=== PATIENT | male | born 1935 | race Caucasian/White ===

== ENCOUNTER 2019-09-14 16:31 | Inpatient (IN) | payer MEDICARE, OTHER ==
[~2019-09-14] VITALS: Ht 170.2 cm; Wt 75.0 kg
[~2019-09-14 16:31] MED LIST: ALLO300T2 PO; AMLO10TA2 PO; AMLO10TA5 PO; ASPI81TA85 PO; ATEN25TA PO; BISAC5TA PO; CODCAP5 PO; COLCPOW6 PO; FINA5TAB2 PO; FISH7.5C PO; FOLI1TAB86 PO; LEVO500T PO; LISI5TAB PO; LOPR100T2 PO; MULT1TAB8 PO; MULTCAP12 PO; ONDA-1 PO; PRED-351 PO; RISP1TAB21 PO; TERA10CA3 PO; TERAZOSIN OD; TYLE325T5 PO; VITA100T2 PO; VITA100T8 PO; ZYLO300T6 PO
[2019-09-14] MEDS ORDERED: ASPI81TA33 PO (16:47)
[2019-09-14] MEDS ORDERED: TERA10CA3 PO (16:47)
--- NOTE | 2019-09-14 17:38 | REPVR ---
PROCEDURE INFORMATION: Exam: CT Head Without Contrast Exam date and time: 09/14/2019 5:24 PM Age: 84 years old Clinical indication: Altered mental status/memory loss; Additional info: AMS TECHNIQUE: Imaging protocol: Computed tomography of the head without contrast. Radiation optimization: All CT scans at this facility use at least one of these dose optimization techniques: automated exposure control; mA and/or kV adjustment per patient size (includes targeted exams where dose is matched to clinical indication); or iterative reconstruction. COMPARISON: No relevant prior studies available. FINDINGS: Brain: There is no acute cortical infarction, intracranial hemorrhage or mass. Ventricles: The ventricles appear enlarged, but not out of proportion to the degree of parenchymal volume loss. Bones/joints: Unremarkable. No acute fracture. Sinuses: Visualized sinuses are unremarkable. No fluid levels. Mastoid air cells: Visualized mastoid air cells are well aerated. Soft tissues: Unremarkable. Vasculature: Atherosclerosis. IMPRESSION: No acute intracranial findings. Electronically signed by: Shannan Dorman On 09/14/2019 17:38:00 PM
[2019-09-14 18:10] LABS: BASO % 0.2 % (0.0-1.0); EOS # 0.1 10^3/uL (0.0-0.5); EOS % 2.1 % (0.0-3.0); HEMATOCRIT 24.9 % (42.0-52.0); HEMOGLOBIN 8.1 g/dl (13.5-17.5); LYMPH % 18.1 % (24.0-44.0); MEAN CORPUSCULAR HGB CONC 32.5 g/dl (32.0-36.5); MEAN CORPUSCULAR VOLUME 104.6 fl (80.0-96.0); MONO # 0.5 10^3/uL (0.0-0.8); MONO % 9.4 % (0.0-5.0); NEUTROPHILS # 3.7 10^3/uL (1.5-8.5); RED BLOOD COUNT 2.38 10^6/uL (4.30-6.10); WHITE BLOOD COUNT 5.3 10^3/uL (4.0-10.0)
[2019-09-14 18:27] LABS: BLOOD UREA NITROGEN 44 MG/DL (7-18); CALCIUM LEVEL 8.5 MG/DL (8.8-10.2); CARBON DIOXIDE LEVEL 28 MEQ/L (21-32); CHLORIDE LEVEL 110 MEQ/L (98-107); CK-MB VALUE MASS 1.5 NG/ML (<3.6); CPK CREATINE PHOSPHOKINASE 54 U/L (39-308); CREATININE FOR GFR 1.23 MG/DL (0.70-1.30); GLOMERULAR FILTRATION RATE 59.8 (>35); GLUCOSE, FASTING 92 MG/DL (70-100); MB/CK RELATIVE INDEX 2.78 (< OR =4); POTASSIUM SERUM 4.5 MEQ/L (3.5-5.1); SODIUM LEVEL 141 MEQ/L (136-145); TROPONIN I < 0.02 NG/ML (< 0.10)
[2019-09-14 18:47] LABS: PLATELET COUNT, AUTOMATED 90 10^3/uL (150-450)
[2019-09-14] MEDS ORDERED: PATIENT COMMENTS (19:26)
--- NOTE | 2019-09-14 19:29 | HPEPDOC ---
[facility] Medical History & Physical Date of Admission Sep 14, 2019 Date of Service: Sep 14, 2019 Attending Physician: BARTOLO SHANKS MD History and Physical TIME OF SERVICE: 750 PM CHIEF COMPLAINT: Leg pain HISTORY OF PRESENT ILLNESS: The patient is a poor historian the majority of history is obtained from Dr. Contreras and chart review. This 84-year-old male was unable to articulate why he came to the hospital. According to ER notes, his neighbor called EMS because the patient was complaining of right leg pain and difficulties walking; patient corroborated that finding. When EMS found him, he appeared confused,and his blood glucose was 133. ROS: Unobtainable because of the patient's mental status PAST MEDICAL/SURGICAL HISTORY: Gout with tophi affecting multiple joints Unspecified type of dementia Chronic CKD 3 Chronic anemia Paroxysmal atrial fibrillation. Aortic valve sclerosis. Moderate mitral valve calcification. Chronic diastolic CHF / Chronic HTN Resection of unspecified type of skin cancer Hx of BPH with urinary retention status post transurethral electro-vaporization of the prostate SOCIAL HISTORY: - Tobacco + lives alone +18 sisters and 2 or 3 brothers + was in the [employer]s FAMILY HISTORY: 1 of his brothers suddenly at a young age ALLERGIES: Please see below. HOME MEDICATIONS: Please see below. PHYSICAL EXAMINATION: Vital Signs Date Time Temp Pulse Resp B/P (MAP) Pulse Ox O2 Delivery O2 Flow Rate FiO2 09/14/19 16:46 97.3 51 19 180/82 (114) 98 Room Air GEN: Slim build / well developed/ NAD INTEGUMENT: not flushed/ not jaundice HEENT: NCAT CVS: RRR/NMRG/ radial pulses intact / no lower extremity edema LUNGS: lungs are clear to auscultation bilaterally on room air ABDOMEN: Contour (flat) MSK/EXTREMITIES: range of motion intact in all 4 extremities / requires assistance to stand and walk / tophi affecting multiple joints NEURO: CN 2-12 are grossly intact / speech is not dysarthric PSYCH: alert and oriented to person but not place or time/ able to understand and follow simple commands LABORATORY DATA: Immature Granulocyte % (Auto) 0.2, Neutrophils (%) (Auto) 70.0H, Lymphocytes (%) (Auto) 18.1L, Monocytes (%) (Auto) 9.4H, Eosinophils (%) (Auto) 2.1, Basophils (%) (Auto) 0.2, Neutrophils # (Auto) 3.7, Lymphocytes # (Auto) 1.0L, Monocytes # (Auto) 0.5, Eosinophils # (Auto) 0.1, Basophils # (Auto) 0.0, Nucleated Red Blood Cells % (auto) 0.0, Immature Platelet Fraction 9.1, Anion Gap 3L, Glomerular Filtration Rate 59.8, Calcium Level 8.5L, Total Creatine Kinase 54, Creatine Kinase MB 1.5, Creatine Kinase MB Relative Index 2.78, Troponin I < 0.02 09/14/19 18:09: Urine Color YELLOW, Urine Appearance CLEAR, Urine pH 5.0, Urine Specific [place] 1.012, Urine Protein NEGATIVE, Urine Glucose (UA) NEGATIVE, Urine Ketones NEG ATIVE, Urine Blood NEGATIVE, Urine Nitrite NEGATIVE, Urine Bilirubin NEGATIVE, Urine Urobilinogen 0.2, Urine Leukocyte Esterase NEGATIVE, Urine WBC (Auto) 1, Urine RBC (Auto) 0, Urine Hyaline Casts (Auto) 0, Urine Bacteria (Auto) NEGATIVE, Urine Squamous Epithelial Cells 0, Urine Mucus (Auto) SMALL, Urine Sperm (Auto) IMAGING: CT head "IMPRESSION: No acute intracranial findings." Chest x-ray final read pending. X-ray lumbar spine final read pending. X-ray hip and pelvis final read pending ASSESSMENT: Mr. Hansen is a 84-year-old with a history of gout, unspecified type of dementia, CKD 3, chronic anemia, paroxysmal atrial fibrillation, diastolic CHF, and HTN who was brought to the hospital for evaluation of right lower extremity pain and will be admitted for evaluation of bradycardia. PLAN: 1. Bradycardia It's difficult to determine if the patient has been experiencing symptoms b ecause he is not able to provide a good history Differential diagnosis includes: DE / sick sinus syndrome due to age-related myocardial fibrosis / idiopathic / vasovagal response / hypothyrodism /cardiac infiltrative dx (amylodosis, sarcodosis...ect) Min HR 47 EKG - NSR K, calcium, glucose & trop unrevealing Plan: admit to [facility] / telemetry / atropine 0.5 mg IV PRN for sustained HR <30 with symptoms/ f/u TSH, serial trops 2. Bicytopenia He has acute thrombocytopenia with a drop of is plt # from 232 to 90; not sure if this is pseudothrombocytopenia due to clumping of plts He also has chronic anemia with a Hg of 8.1 which is his baseline. Plan: f/u repeat CBC and B12 / monitor for bleeding 3. Right Leg Pain Plan: f/u xray reports / acetaminophen / lidocane patch 4. Possible Alzhimer's Dementia CT head unrevealing Plan: f/u TSH, B12, B1 / PFS consult for possible placement / the day time team can contact his next of kin to get additional info / 1:1 sitter / the day time team may consider Pallative care consult to adress the goals of care and his code status with his next of kin 5. Debility w Sarcopenia. - PT consult for early mobilization 6. CKD 3 - f/u BMP 7. BPH - terazosin 8. Gout w Tophi - f/u uric acid 9. Paroxysmal atrial fibrillation - for unclear reasons not on AC/ day time team can talk with his next of kin to obtain additiona details DVT Px w SCDs bc of bicytopenia DISPO: will need at [facility] 2 midnight's stay / PFS consult has been palced for placement in NURSING HOME or SNF Home Medications Scheduled Aspirin (Aspirin EC) 81 Mg Tablet.dr, 81 MG PO DAILY Terazosin Hcl (Terazosin HCl) 10 Mg Capsule, 10 MG PO QHS Miscellaneous Medications [Patient Comments] INFORMATION ON MEDICATIONS PROVIDED BY FAMILY MEMBER Allergies Coded Allergies: No Known Allergies (Unverified , 08/01/13) A-FIB/CHADSVASC A-FIB History Current/History of A-Fib/PAF?: Yes Current PO Anticoag Therapy: No Treatment Other reason anticoagulant not: anemia with acute thrombocytopenia BARTOLO SHANKS MD Sep 14, 2019 19:29
[2019-09-14] MEDS ORDERED: ACETAMINOPHEN TAB 650MG DOSE (2X325MG) PO PRN (19:30)
[2019-09-14] MEDS ORDERED: MAALOX 30 ML SUSP *UDC PO PRN (19:30)
--- NOTE | 2019-09-14 19:30 | ECGEPIP ---
[facility] - ED Test Date: 2019-09-14 Pat Name: CHRISTI BROOKS Department: Room: - Gender: Male Ct Technician: : 1935 Requested By: Reinier Perez Order Number: [id number] Reading MD: Susan Hogan Measurements Intervals Eleanor Rate: 51 P: 37 AR: 184 QRS: -7 QRSD: 76 T: 51 QT: 414 QTc: 384 Interpretive Statements SINUS BRADYCARDIA NO PRIOR Electronically Signed on 09-14-2019 19:30:22 EDT by Susan Hogan
[2019-09-14 19:55] LABS: MAGNESIUM LEVEL 2.1 MG/DL (1.8-2.4)
[2019-09-14] MEDS: RAMELTEON 8 MG TAB (ROZEREM) PO SCH (20:27)
[2019-09-14] MEDS: ACETAMINOPHEN TAB 650MG DOSE (2X325MG) PO SCH (20:28)
[2019-09-14] MEDS ORDERED: ATROPINE SULF 1MG/10ML SYRINGE (J0461) IV PRN (20:45)
[2019-09-14 21:01] LABS: URIC ACID 6.7 MG/DL (3.5-7.2)
[2019-09-14] MEDS: TERAZOSIN 5 MG CAP PO SCH (21:59)
[2019-09-14 22:00] VITALS: BP 155/73
[2019-09-14] MEDS: LIDOCAINE 5% (LIDODERM) PATCH TD SCH (22:00)
[2019-09-15] VITALS (10 sets, daily range): BP systolic 113–148; BP diastolic 54–89
[2019-09-15] MEDS: ACETAMINOPHEN TAB 650MG DOSE (2X325MG) PO SCH ×3 (05:40→22:07)
[2019-09-15 06:08] LABS: MEAN CORPUSCULAR HEMOGLOBIN 34.3 pg (27.0-33.0); MEAN CORPUSCULAR HGB CONC 33.3 g/dl (32.0-36.5); RED BLOOD COUNT 2.01 10^6/uL (4.30-6.10)
[2019-09-15 06:16] LABS: HEMATOCRIT 20.7 % (42.0-52.0); PLATELET COUNT, AUTOMATED 76 10^3/uL (150-450)
[2019-09-15 06:17] LABS: HEMOGLOBIN 6.9 g/dl (13.5-17.5)
[2019-09-15 06:27] LABS: BLOOD UREA NITROGEN 37 MG/DL (7-18); CALCIUM LEVEL 7.8 MG/DL (8.8-10.2); CARBON DIOXIDE LEVEL 26 MEQ/L (21-32); CHLORIDE LEVEL 111 MEQ/L (98-107); CREATININE FOR GFR 1.15 MG/DL (0.70-1.30); GLOMERULAR FILTRATION RATE > 60.0 (>35); GLUCOSE, FASTING 86 MG/DL (70-100); MAGNESIUM LEVEL 2.1 MG/DL (1.8-2.4); POTASSIUM SERUM 3.9 MEQ/L (3.5-5.1); SODIUM LEVEL 143 MEQ/L (136-145)
--- NOTE | 2019-09-15 06:49 | IPNPDOC ---
Text Note Date of Service The patient was seen on 09/15/19. NOTE #Pancytopenia possibly 2/2 Myelofibrosis, MDS or aplastic anemia -he has had an acute drop in his Hg to 6, his WBC # and plts are trending down -we will type and screen/cross match, order 2 unit of PRBCs, dc ASA, f/u iron studies, B12 is still pending VS,Fishbone, I+O VS, Fishbone, I+O Laboratory Tests 09/14/19 17:51 09/15/19 05:30 Vital Signs Date Time Temp Pulse Resp B/P (MAP) Pulse Ox O2 Delivery O2 Flow Rate FiO2 09/15/19 06:00 97.9 57 19 148/75 (99) 99 Room Air I&O- Last 24 Hours up to 6 AM 09/15/19 06:00 Intake Total 500 ml Balance 500 ml BARTOLO SHANKS MD Sep 15, 2019 06:49
[2019-09-15 07:18] LABS: ALT/SGPT 11 U/L (12-78); BILIRUBIN,DIRECT 0.3 MG/DL (0.0-0.2); BILIRUBIN,TOTAL 0.8 MG/DL (0.2-1.0); FERRITIN 495 NG/ML (26-388); IRON (FE) 51 UG/DL (65-175); PERCENT SATURATION 35.2 % (19.7-50.0); TOTAL IRON BINDING CAPACITY 145 UG/DL (250-450); TOTAL PROTEIN 5.7 GM/DL (6.4-8.2)
[2019-09-15 07:25] LABS: INR 1.41
[2019-09-15 07:27] LABS: PARTIAL THROMBOPLASTIN TIME 39.9 SECONDS (25.0-38.4)
[2019-09-15 07:29] LABS: D-DIMER QUANT 653.75 ng/ml (<500)
--- NOTE | 2019-09-15 08:33 | REP ---
CHEST: REASON FOR EXAM: Confusion. COMPARISON EXAM: 09/14/2019 FINDINGS: The technique utilized in obtaining the radiograph has magnified the cardiac silhouette and accentuated the interstitial markings. The superior mediastinal structures are midline. The cardiac silhouette is unremarkable in size, shape, and position. The diaphragmatic surfaces of the lungs are regular, and the costophrenic angles are clear. The pulmonary coughlin are clear. The imaged osseous structures are intact. IMPRESSION: There is no acute cardiopulmonary disease. No significant change. Electronically Signed by Hamzah Almonte DO 09/15/2019 08:39 A
--- NOTE | 2019-09-15 08:54 | REP ---
AP pelvis was obtained with two views of the right hip. Atraumatic pain. There is marked asymmetric hip joint space narrowing with subchondral sclerosis and subchondral lucencies. There is prominent marginal osteophytosis. There is no evidence of a fracture. More mild but significant degenerative changes are seen involving the left hip, although imaged in a limited fashion. Degenerative changes are seen involving the imaged spine. IMPRESSION: Advanced degenerative changes, as described above. Electronically Signed by Hamzah Almonte DO 09/15/2019 09:12 A
--- NOTE | 2019-09-15 08:57 | REP ---
REASON: Atraumatic pain. There is moderate disc space narrowing L3-4 through L5-S1 inclusive. More mild disc space narrowing is seen at all other disc space levels. There is heavy degenerative facet joint change seen bilaterally at all levels. There is anterior lipping from L3 to L5 inclusive, and anterior lipping seen involving the imaged lower thoracic spine. Vertebral body height and alignment is within normal limits. Partial syndesmophyte formation is seen bilaterally at all levels. IMPRESSION: Advanced chronic changes. Electronically Signed by Hamzah Almonte DO 09/15/2019 09:13 A
[2019-09-15] MEDS ORDERED: ASPIRIN 81 MG ENTERIC TAB PO SCH (09:00)
[2019-09-15] MEDS: **NOTE PATIENT COMMENT** MISC XX SCH (09:00)
--- NOTE | 2019-09-15 09:57 | REP ---
CHEST: REASON: Confusion. FINDINGS: The technique utilized in obtaining the radiograph has magnified the cardiac silhouette and accentuated the interstitial markings. The superior mediastinal structures are midline. The cardiac silhouette is unremarkable in size, shape, and position. The diaphragmatic surfaces of the lungs are regular, and the costophrenic angles are clear. The pulmonary coughlin are clear. The imaged osseous structures are intact. IMPRESSION: There is no acute cardiopulmonary disease. Electronically Signed by Hamzah Almonte DO 09/15/2019 10:45 A
--- NOTE | 2019-09-15 14:19 | IPNPDOC ---
Date Seen The patient was seen on 09/15/19. Progress Note SUBJECTIVE: Pleasantly confused in no acute distress. Bradycardia on tele, asymptomatic. To receive 2 units PRBC. Denies chest pain, n/v/d, shortness of breath. OBJECTIVE: VITAL SIGNS: Please see below GEN: Slim build / well developed/ NAD INTEGUMENT: not flushed/ not jaundice HEENT: NCAT CVS: bradycardic with regular rhythm. NMRG/ radial pulses intact / no lower extremity edema LUNGS: lungs are clear to auscultation bilaterally on room air ABDOMEN: Contour (flat) MSK/EXTREMITIES: range of motion intact in all 4 extremities / requires assistance to stand and walk / tophi affecting multiple joints NEURO: CN 2-12 are grossly intact / speech is not dysarthric PSYCH: alert and oriented to person but not place or time/ able to understand and follow simple commands LABORATORY DATA: Please see below. IMAGING: No new imaging ASSESSMENT: Patient is an 84-year-old with a history of gout, unspecified type of dementia, CKD 3, chronic anemia, paroxysmal atrial fibrillation, diastolic CHF, and HTN who was brought to the hospital for evaluation of right lower extremity pain and will be admitted for evaluation of bradycardia. PLAN: 1. Bradycardia. Denies symptoms. ECG nsr. TSH only very mildly elevated. Trop neg. [facility] to [facility] if this is [facility] and previously addressed by provider. Cannot r/o sick sinus syndrome due to age-related myocardial fibrosis / idiopathic / vasovagal response / hypothyrodism /cardiac infiltrative dx (amylodosis, sarcodosis...ect) C/w telemetry. 2. Pancytopenia. Per patient's HCP, this is not new and [facility]. Acute thrombocytopenia slightly improved on AM labs, no signs of acute bleeding. chronic anemia history. Due for blood transfusion x 2 units, will f/u post tranfusion H/H. If worsens, consider heme/onc consult. 3. 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 XR showed advanced degenerative changes. Tylenol, Lidocaine patch. 4. Alzheimer's Dementia, Lewey body dementia, chronic and severe. Worsening. As per HCP, they thought he might have a touch of both. Follows with neurologist. CT head unrevealing. B12 and B1 pending. TSH mildly elevated at 4.2. Lives alone but will likely need placement. Consider Pallative care consult to address the goals of care and his code status with his next of kin 5. Physical deconditioning, weakness. fall risk. PT consult for early mobilization 6. CKD 3 - Cr wnl. Careful with nephrotoxic meds. F/u labs daily. 7. BPH - terazosin 8. Gout w Tophi - UA wnl. Stable. 9. Paroxysmal atrial fibrillation - for unclear reasons not on AC/ day time team can talk with his next of kin to obtain additional details 10. DVT px. SCDS. Avoiding AC due to pancytopenia at this time. DISPO: Currently under inpatient status. Patient may require NH placement after this. Talked to HCP this AM, appears he has been on a decline for some time. Will discuss with care plan team in AM. VS, I&O, 24H, Fishbone Vital Signs/I&O Vital Signs Date Time Temp Pulse Resp B/P (MAP) Pulse Ox O2 Delivery O2 Flow Rate FiO2 09/15/19 13:44 96.3 43 18 129/59 100 Room Air 09/15/19 12:29 98.0 I&O- Last 24 Hours up to 6 AM 09/15/19 06:00 Intake Total 500 ml Balance 500 ml Laboratory Data 24H LABS Laboratory Tests 2 09/14/19 17:51: Immature Granulocyte % (Auto) 0.2, Neutrophils (%) (Auto) 70.0H, Lymphocytes (%) (Auto) 18.1L, Monocytes (%) (Auto) 9.4H, Eosinophils (%) (Auto) 2.1, Basophils (%) (Auto) 0.2, Neutrophils # (Auto) 3.7, Lymphocytes # (Auto) 1.0L, Monocytes # (Auto) 0.5, Eosinophils # (Auto) 0.1, Basophils # (Auto) 0.0, Nucleated Red Blood Cells % (auto) 0.0, Immature Platelet Fraction 9.1, Anion Gap 3L, Glomerular Filtration Rate 59.8, Uric Acid 6.7, Calcium Level 8.5L, Magnesium Level 2.1, Total Creatine Kinase 54, Creatine Kinase MB 1.5, Creatine Kinase MB Relative Index 2.78, Troponin I < 0.02, Thyroid Stimulating Hormone (TSH) 4.820H 09/14/19 18:09: Urine Color YELLOW, Urine Appearance CLEAR, Urine pH 5.0, Urine Specific [place] 1.012, Urine Protein NEGATIVE, Urine Glucose (UA) NEGATIVE, Urine Ketones NEGATIVE, Urine Blood NEGATIVE, Urine Nitrite NEGATIVE, Urine Bilirubin NEGATIVE, Urine Urobilinogen 0.2, Urine Leukocyte Esterase NEGATIVE, Urine WBC (Auto) 1, Urine RBC (Auto) 0, Urine Hyaline Casts (Auto) 0, Urine Bacteria (Auto) NEGATIVE, Urine Squamous Epithelial Cells 0, Urine Mucus (Auto) SMALL, Urine Sperm (Auto) 09/14/19 19:51: 09/14/19 23:50: Troponin I 0.02 09/15/19 01:49: Troponin I 0.03# 09/15/19 05:30: Nucleated Red Blood Cells % (auto) 0.0, Anion Gap 6L, Glomerular Filtration Rate > 60.0, Calcium Level 7.8L, Magnesium Level 2.1, Iron Level 51L, Total Iron Binding Capacity 145L, Transferrin % Saturation 35.2, Ferritin 495H, Total Bilirubin 0.8, Direct Bilirubin 0.3H, Aspartate Amino Transf (AST/SGOT) 15, Alanine Aminotransferase (ALT/SGPT) 11L, Alkaline Phosphatase 42L, Total Protein 5.7L, Albumin 3.0L, Albumin/Globulin Ratio 1.11 09/15/19 07:01: Prothrombin Time 17.0H, Prothromb Time International Ratio 1.41, Activated Part ial Thromboplast Time 39.9H, Fibrinogen 304, D-Dimer, Quantitative 653.75H, C- Reactive Protein, Quantitative < 0.30 CBC/BMP Laboratory Tests 09/14/19 17:51 09/15/19 05:30 Microbiology Microbiology 09/15/19 Respiratory Virus Panel (PCR) ([facility]) - Final, Complete 09/15/19 Blood Culture, Received Pending Current Medications Current Medications Medications (Trade) Dose Ordered Sig/Elias Route PRN Reason Start Time Stop Time Status Last Admin Dose Admin Acetaminophen (Tylenol Tab) 650 mg Q4H PRN PO PAIN OR FEVER 09/14/19 19:30 09/14/19 20:19 DC Acetaminophen (Tylenol Tab) 1,300 mg Q8H PO 09/14/19 22:00 09/15/19 05:40 Al Hydrox/Mg Hydrox/Simethicone (Mylanta) 30 ml DAILY PRN PO DYSPEPSIA 09/14/19 19:30 Aspirin (Ecotrin) 81 mg DAILY PO 09/15/19 09:00 09/15/19 06:48 DC Atropine Sulfate (Atropine Sulfate) 0.5 mg Q1HP PRN IV sustained HR <30 w symptoms 09/14/19 20:45 Hold Home Med (Med Rec Complete!) ASDIRECTED XX 09/14/19 19:30 09/14/19 19:31 DC Lidocaine (Lidoderm Patch) 1 patch QHS TD 09/14/19 21:00 09/14/19 22:00 Non-Formulary Medication ( See Comment Field Below ) REMOVE LIDODERM PATCH DAILY XX 09/15/19 09:00 09/15/19 09:00 Ramelteon (Rozerem) 8 mg QHS PO 09/14/19 20:30 09/14/19 20:27 Terazosin HCl (Hytrin) 10 mg QHS PO 09/14/19 21:00 09/14/19 21:59 Allergies Coded Allergies: No Known Allergies (Unverified , 08/01/13) Sravani Denton MD Sep 15, 2019 14:19
[2019-09-15 16:07] LABS: HEMATOCRIT 26.5 % (42.0-52.0); HEMOGLOBIN 8.9 g/dl (13.5-17.5)
[2019-09-15] MEDS ORDERED: LORazepam 2 MG/ML VIAL (J2060) IM STA (21:44)
[2019-09-15] MEDS ORDERED: LORazepam 2 MG/ML VIAL (J2060) As Ordered ONE (21:45)
--- NOTE | 2019-09-15 21:48 | IPNPDOC ---
Text Note Date of Service The patient was seen on 09/15/19. NOTE CODE 25 called because the patient was agitated, not listening to the nursing staff and swinging at them with his walking staff. He had put his clothing on and was telling them that he was going home. His serum glucose was 101, 148/93, HR 82, O2 94%. We gave him 1mg of ativan, ordered a sitter and ordered oral quetiapine PRN QHS for agitation. He will get his Rozerum tonight. I suspect he has dementia with behavior disturbance. We will ask the day time team to consult Psych in the AM to confirm this diagnosis and adjust the dose of his quetiapine as they see fit. VS,Valentebone, I+O VS, Fishbone, I+O Laboratory Tests 09/15/19 05:30 09/15/19 15:49 Vital Signs Date Time Temp Pulse Resp B/P (MAP) Pulse Ox O2 Delivery O2 Flow Rate FiO2 09/15/19 14:02 96.3 43 17 144/70 99 Room Air 09/15/19 12:29 98.0 I&O- Last 24 Hours up to 6 AM 09/15/19 06:00 Intake Total 500 ml Balance 500 ml BARTOLO SHANKS MD Sep 15, 2019 21:48
[2019-09-15] MEDS ORDERED: QUEtiapine FUMARATE **XR** 200MG TABLET PO PRN (22:00)
[2019-09-15] MEDS ORDERED: QUEtiapine FUMARATE **XR** 200MG TABLET PO SCH (22:00)
[2019-09-15] MEDS: RAMELTEON 8 MG TAB (ROZEREM) PO SCH (22:06)
[2019-09-15] MEDS: LIDOCAINE 5% (LIDODERM) PATCH TD SCH (22:06)
[2019-09-15] MEDS: TERAZOSIN 5 MG CAP PO SCH (22:06)
[2019-09-15] MEDS ORDERED: QUEtiapine FUMARATE 12.5 MG HALF-TAB PO PRN (23:00)
[2019-09-16 06:00] VITALS: BP 117/49
[2019-09-16] MEDS: ACETAMINOPHEN TAB 650MG DOSE (2X325MG) PO SCH ×3 (06:00→21:40)
[2019-09-16] MEDS ORDERED: QUEtiapine FUMARATE 12.5 MG HALF-TAB PO PRN (09:00)
[2019-09-16 09:15] LABS: BASO % 0.3 % (0.0-1.0); EOS # 0.1 10^3/uL (0.0-0.5); EOS % 3.6 % (0.0-3.0); HEMATOCRIT 27.1 % (42.0-52.0); HEMOGLOBIN 9.3 g/dl (13.5-17.5); LYMPH # 0.7 10^3/uL (1.5-5.0); LYMPH % 19.9 % (24.0-44.0); MEAN CORPUSCULAR HEMOGLOBIN 33.7 pg (27.0-33.0); MEAN CORPUSCULAR HGB CONC 34.3 g/dl (32.0-36.5); MEAN CORPUSCULAR VOLUME 98.2 fl (80.0-96.0); MONO # 0.4 10^3/uL (0.0-0.8); MONO % 10.4 % (0.0-5.0); NEUTROPHILS # 2.2 10^3/uL (1.5-8.5); NEUTROPHILS % 65.5 % (36.0-66.0); RED BLOOD COUNT 2.76 10^6/uL (4.30-6.10); WHITE BLOOD COUNT 3.4 10^3/uL (4.0-10.0)
[2019-09-16 09:17] LABS: PLATELET COUNT, AUTOMATED 69 10^3/uL (150-450)
[2019-09-16] MEDS: **NOTE PATIENT COMMENT** MISC XX SCH (10:28)
[2019-09-16] MEDS ORDERED: FERRIC CARBOXYMALTOSE INJ 750 MG in NS 250 ML IV ONE (11:00)
[2019-09-16 12:10] VITALS: BP 125/57
[2019-09-16 13:10] VITALS: BP 150/76
[2019-09-16 14:00] VITALS: BP 148/68
[2019-09-16] MEDS ORDERED: QUEtiapine FUMARATE 12.5 MG HALF-TAB PO SCH ×2 (20:00→21:00)
[2019-09-16] MEDS: RAMELTEON 8 MG TAB (ROZEREM) PO SCH (21:40)
[2019-09-16] MEDS: TERAZOSIN 5 MG CAP PO SCH (21:40)
[2019-09-16] MEDS: LIDOCAINE 5% (LIDODERM) PATCH TD SCH (21:41)
[2019-09-16 22:00] VITALS: BP 143/75
--- NOTE | 2019-09-16 23:20 | IPNPDOC ---
Date Seen The patient was seen on 09/16/19. Progress Note SUBJECTIVE: Pleasantly confused in no acute distress, resting. Bradycardia on tele, asymptomatic. S/p 2 units PRBC, H/H 9.02/02. Awaiting records from [place] to review. Denies chest pain, n/v/d, shortness of breath. OBJECTIVE: VITAL SIGNS: Please see below GEN: Slim build / well developed/ NAD INTEGUMENT: not flushed/ not jaundice HEENT: NCAT CVS: bradycardic with regular rhythm. NMRG/ radial pulses intact / no lower extremity edema LUNGS: lungs are clear to auscultation bilaterally on room air ABDOMEN: Contour (flat) MSK/EXTREMITIES: range of motion intact in all 4 extremities / requires assistance to stand and walk / tophi affecting multiple joints NEURO: CN 2-12 are grossly intact / speech is not dysarthric PSYCH: alert and oriented to person but not place or time/ able to understand and follow simple commands LABORATORY DATA: Please see below. IMAGING: No new imaging ASSESSMENT: Patient is an 84-year-old admitted for pancytopenia, monitoring of bradycardia and requiring placement in SNF. PLAN: 1. Bradycardia. HR 40-50, asymptomatic. Denies symptoms. F/u notes from PCP ([place]) to see if this is chronic and previously addressed by provider. Cannot r/o sick sinus syndrome due to age-related myocardial fibrosis , idiopathic, cardiac infiltrative dx such as amylodosis, sarcodosis...ect. Ordered echocardiogram. C/w telemetry. Consider cards consult. 2. Pancytopenia. Per patient's HCP, [facility] is not new [facility]. Acute thrombocytopenia slightly improved , no signs of acute bleeding. Chronic anemia history. [facility]. If worsens, consider heme/onc consult. 3. 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 XR showed advanced degenerative changes. Tylenol, Lidocaine patch. 4. Alzheimer's Dementia, Lewey body dementia, chronic and severe. Worsening. As per HCP, they thought he might have a touch of both. Follows with neurologist. CT head unrevealing. B12 and B1 pending. TSH mildly elevated at 4.2. Lives alone but will need placement. 5. Physical deconditioning, weakness. fall risk. PT/OT. 6. CKD 3 - Cr wnl. Careful with nephrotoxic meds. F/u labs daily. 7. BPH - terazosin 8. Gout w Tophi - UA wnl. Stable. 9. Paroxysmal atrial fibrillation. Not on AC at home. 10. DVT px. SCDS. Avoiding AC due to pancytopenia at this time. DISPO: Currently under inpatient status. Will require SNF placement, wrapper caser and social work are working on this. VS, I&O, 24H, Fishbone Vital Signs/I&O Vital Signs Date Time Temp Pulse Resp B/P (MAP) Pulse Ox O2 Delivery O2 Flow Rate FiO2 09/16/19 22:00 98.1 50 16 143/75 (97) 98 09/16/19 14:00 Room Air 09/15/19 12:29 98.0 I&O- Last 24 Hours up to 6 AM 09/16/19 06:00 Intake Total 1290 ml Output Total 50 ml Balance 1240 ml Laboratory Data 24H LABS Laboratory Tests 2 09/16/19 08:58: Immature Granulocyte % (Auto) 0.3, Neutrophils (%) (Auto) 65.5, Lymphocytes (%) (Auto) 19.9L, Monocytes (%) (Auto) 10.4H, Eosinophils (%) (Auto) 3.6H, Basophils (%) (Auto) 0.3, Neutrophils # (Auto) 2.2, Lymphocytes # (Auto) 0.7L, Monocytes # (Auto) 0.4, Eosinophils # (Auto) 0.1, Basophils # (Auto) 0.0, Nucleated Red Blood Cells % (auto) 0.0, Immature Platelet Fraction 8.9 CBC/BMP Laboratory Tests 09/16/19 08:58 Microbiology Microbiology 09/15/19 Respiratory Virus Panel (PCR) ([facility]) - Final, Complete 09/15/19 Blood Culture - Preliminary, Resulted No growth after 24 hours . All specim... Current Medications Current Medications Medications (Trade) Dose Ordered Sig/Elias Route PRN Reason Start Time Stop Time Status Last Admin Dose Admin Acetaminophen (Tylenol Tab) 650 mg Q4H PRN PO PAIN OR FEVER 09/14/19 19:30 09/14/19 20:19 DC Acetaminophen (Tylenol Tab) 1,300 mg Q8H PO 09/14/19 22:00 09/16/19 21:40 Al Hydrox/Mg Hydrox/Simethicone (Mylanta) 30 ml DAILY PRN PO DYSPEPSIA 09/14/19 19:30 Aspirin (Ecotrin) 81 mg DAILY PO 09/15/19 09:00 09/15/19 06:48 DC Atropine Sulfate (Atropine Sulfate) 0.5 mg Q1HP PRN IV sustained HR <30 w symptoms 09/14/19 20:45 Hold Home Med (Med Rec Complete!) ASDIRECTED XX 09/14/19 19:30 09/14/19 19:31 DC Lidocaine (Lidoderm Patch) 1 patch QHS TD 09/14/19 21:00 09/16/19 21:41 Lorazepam (Ativan) 1 mg STAT STAT IM 09/15/19 21:44 09/15/19 21:45 DC 09/15/19 22:07 Non-Formulary Medication ( See Comment Field Below ) REMOVE LIDODERM PATCH DAILY XX 09/15/19 09:00 09/16/19 10:28 Quetiapine Fumarate (SEROquel XR) 200 mg QHS PO 09/15/19 22:00 09/15/19 21:50 DC Quetiapine Fumarate (SEROquel XR) 200 mg QHS PRN PO Agitation 09/15/19 22:00 09/15/19 22:52 DC Quetiapine Fumarate (SEROquel) 12.5 mg DAILY PRN PO agitation 09/16/19 09:00 Quetiapine Fumarate (SEROquel) 12.5 mg DAILY@20 PO 09/16/19 20:00 09/15/19 23:00 DC Quetiapine Fumarate (SEROquel) 12.5 mg QHS PO 09/16/19 21:00 09/15/19 23:01 DC Quetiapine Fumarate (SEROquel) 12.5 mg QHS PRN PO agitation 09/15/19 23:00 Ramelteon (Rozerem) 8 mg QHS PO 09/14/19 20:30 09/16/19 21:40 Terazosin HCl (Hytrin) 10 mg QHS PO 09/14/19 21:00 09/16/19 21:40 Allergies Coded Allergies: No Known Allergies (Unverified , 08/01/13) Sravani Denton MD Sep 16, 2019 23:20
[2019-09-17 05:46] LABS: BASO % 0.6 % (0.0-1.0); EOS # 0.1 10^3/uL (0.0-0.5); HEMATOCRIT 27.5 % (42.0-52.0); HEMOGLOBIN 9.1 g/dl (13.5-17.5); LYMPH # 0.9 10^3/uL (1.5-5.0); LYMPH % 25.5 % (24.0-44.0); MEAN CORPUSCULAR HEMOGLOBIN 32.6 pg (27.0-33.0); MEAN CORPUSCULAR HGB CONC 33.1 g/dl (32.0-36.5); MEAN CORPUSCULAR VOLUME 98.6 fl (80.0-96.0); MONO # 0.3 10^3/uL (0.0-0.8); MONO % 9.1 % (0.0-5.0); NEUTROPHILS # 2.2 10^3/uL (1.5-8.5); NEUTROPHILS % 61.5 % (36.0-66.0); RED BLOOD COUNT 2.79 10^6/uL (4.30-6.10); WHITE BLOOD COUNT 3.6 10^3/uL (4.0-10.0)
[2019-09-17 05:50] LABS: PLATELET COUNT, AUTOMATED 60 10^3/uL (150-450)
[2019-09-17 06:00] VITALS: BP 136/72
[2019-09-17] MEDS: ACETAMINOPHEN TAB 650MG DOSE (2X325MG) PO SCH ×3 (06:02→21:03)
[2019-09-17 06:21] LABS: ALBUMIN 3.1 GM/DL (3.2-5.2); ALT/SGPT 12 U/L (12-78); BILIRUBIN,TOTAL 1.1 MG/DL (0.2-1.0); BLOOD UREA NITROGEN 24 MG/DL (7-18); CALCIUM LEVEL 8.2 MG/DL (8.8-10.2); CARBON DIOXIDE LEVEL 27 MEQ/L (21-32); CHLORIDE LEVEL 111 MEQ/L (98-107); CREATININE FOR GFR 1.13 MG/DL (0.70-1.30); GLOMERULAR FILTRATION RATE > 60.0 (>35); GLUCOSE, FASTING 90 MG/DL (70-100); POTASSIUM SERUM 3.8 MEQ/L (3.5-5.1); SODIUM LEVEL 142 MEQ/L (136-145); TOTAL PROTEIN 5.5 GM/DL (6.4-8.2)
[2019-09-17] MEDS: **NOTE PATIENT COMMENT** MISC XX SCH (09:25)
--- NOTE | 2019-09-17 11:30 | IPNPDOC ---
Subjective Date Seen The patient was seen on 09/17/19. Subjective Chief Complaint/HPI Patient offers no new complaints, awaiting placement General: Denies: ROS Unobtainable, Chills, Night Sweats, Fatigue, Malaise, Normal Appetite, Other Symptoms Skin: Denies: Rash, Lesions, Jaundice, Bruising, Itching, Dry, Breakdown, Nail Changes, Other Pulmonary: Denies: Dyspnea, Cough, Pleuritic Chest Pain, Other Symptoms Cardiovascular: Denies: Chest Pain, Palpitations, Orthopnea, Paroxysmal Noc. Dyspnea, Edema, Lt Headedness, Other Symptoms Gastrointestinal: Denies: Nausea, Vomiting, Abdominal Pain, Diarrhea, Constipation, Melena, Hematochezia, Other Symptoms Hematologic: Denies: Bruising, Bleeding Excessively, Petecchia, Purpura, Enlarged Lymph Nodes, Other Hematologic Endocrine: Denies: Polydipsia, Polyphagia, Polyuria, Heat Intolerance, Cold Intolerance, Other Endocrine Sx Musculoskeletal: Denies: Neck Pain, Back Pain, Shoulder Pain, Arm Pain, Hand P ain, Leg Pain, Foot Pain, Joint Pain, Muscle Pain, Spasms, Other Symptoms Objective Physical Examination General Exam: Positive: Alert, Cooperative Eye Exam: Positive: PERRLA ENT Exam: Positive: Atraumatic, Mucous membr. moist/pink Chest Exam: Positive: Clear to auscultation, Normal air movement Heart Exam: Positive: Rate Normal, Normal S1, Normal S2 Abdomen Exam: Positive: Normal bowel sounds Extremity Exam: Positive: Normal pulses Skin Exam: Positive: Nl turgor and temperature Neuro Exam: Positive: Strength at 5/5 X4 ext, Cranial Nerves 3-12 NL Psych Exam: Positive: Mood NL, Oriented x 3 Assessment /Plan Problems (1) Bradycardia Status: Chronic Problem Text: . 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 Hemoglobin and hematocrit stable Follow CBC periodically Plan/VTE VTE Prophylaxis Ordered?: Yes VS, I&O, 24H, Fishbone Vital Signs/I&O Vital Signs Date Time Temp Pulse Resp B/P (MAP) Pulse Ox O2 Delivery O2 Flow Rate FiO2 09/17/19 06:00 98.5 49 16 136/72 (93) 97 09/16/19 14:00 Room Air 09/15/19 12:29 98.0 I&O- Last 24 Hours up to 6 AM 09/17/19 06:00 Intake Total 755 ml Output Total 0 ml Balance 755 ml Laboratory Data 24H LABS Laboratory Tests 2 09/17/19 05:27: Immature Granulocyte % (Auto) 0.3, Neutrophils (%) (Auto) 61.5, Lymphocytes (%) (Auto) 25.5, Monocytes (%) (Auto) 9.1H, Eosinophils (%) (Auto) 3.0, Basophils (%) (Auto) 0.6, Neutrophils # (Auto) 2.2, Lymphocytes # (Auto) 0.9L, Monocytes # (Auto) 0.3, Eosinophils # (Auto) 0.1, Basophils # (Auto) 0.0, Nucleated Red Blood Cells % (auto) 0.0, Anion Gap 4L, Glomerular Filtration Rate > 60.0, Calcium Level 8.2L, Total Bilirubin 1.1H, Aspartate Amino Transf (AST/SGOT) 8, Alanine Aminotransferase (ALT/SGPT) 12, Alkaline Phosphatase 41L, Total Protein 5.5L, Albumin 3.1L, Albumin/Globulin Ratio 1.29 CBC/BMP Laboratory Tests 09/17/19 05:27 Microbiology Microbiology 09/15/19 Respiratory Virus Panel (PCR) ([facility]) - Final, Complete 09/15/19 Blood Culture - Preliminary, Resulted No Growth after 48 hours. All Specime... YANNA PANTOJA MD Sep 17, 2019 11:30
[2019-09-17 14:00] VITALS: BP 120/55
--- NOTE | 2019-09-17 18:39 | ECHO ---
DATE OF PROCEDURE: 09/17/2019 REFERRING PHYSICIAN: Dr. Denton INDICATION: Bradycardia. Height 170 cm, weight 70 kg. DIMENSIONS: IVS: 0.9 LV: 3.7 LVPW: 1.0 LA: 3.8 Aorta: 3.5 Mitral E wave velocity: 78 A wave: 94 E prime septal: 6.7 E prime lateral: 12.8 FINDINGS: The study is of acceptable technical quality. There are very limited parasternal, fair apical but decent subcostal views. The patient in sinus rhythm. Left ventricle is normal size and systolic function, I estimate left ventricular ejection fraction (LVEF) approximately 60-65%. Right ventricle also appears to be normal size and systolic function. Both atria appear grossly normal based on limited views. Aortic valve is tricuspid. It is heavily sclerotic, but there is decent mobility of aortic cusp. There are also mild degenerative abnormalities of mitral valve with mitral annular calcifications. Tricuspid valve and pulmonic valves appear normal. No pericardial effusion is noted. Inferior vena cava was not well seen. Aortic root is normal. Aortic arch and abdominal aorta were not well visualized. Doppler interrogation of aortic valve reveals no insufficiency and trivial stenosis with mean gradient 8 mmHg. There is trace mitral insufficiency and trace tricuspid insufficiency. Calculated pulmonary artery pressure is within normal limits assuming normal central venous pressure. Pulmonic valve is also functionally competent. Mitral inflow pattern and tissue Doppler imaging of mitral annulus revealed grade 1 diastolic dysfunction. CONCLUSIONS: 1. Study is of acceptable technical quality, the patient is in sinus rhythm. 2. Normal left ventricular (LV) size with normal LV systolic function and grade 1 diastolic dysfunction. 3. Aortic sclerosis with trivial stenosis. 4. Trace mitral and tricuspid insufficiency. 5. Unable to estimate central venous pressure but likely normal pulmonary artery pressure. COMMENT: Subacute bacterial endocarditis (SBE) prophylaxis is not recommended. Relatively unremarkable echocardiogram for patient's age.
[2019-09-17] MEDS: RAMELTEON 8 MG TAB (ROZEREM) PO SCH (21:01)
[2019-09-17] MEDS: LIDOCAINE 5% (LIDODERM) PATCH TD SCH (21:02)
[2019-09-17] MEDS: TERAZOSIN 5 MG CAP PO SCH (21:02)
[2019-09-17 22:00] VITALS: BP 132/74
[2019-09-18] MEDS: ACETAMINOPHEN TAB 650MG DOSE (2X325MG) PO SCH ×3 (05:48→21:07)
[2019-09-18 06:00] VITALS: BP 131/58
[2019-09-18 06:06] LABS: EOS # 0.1 10^3/uL (0.0-0.5); EOS % 4.5 % (0.0-3.0); HEMATOCRIT 26.8 % (42.0-52.0); LYMPH # 0.9 10^3/uL (1.5-5.0); MEAN CORPUSCULAR HEMOGLOBIN 33.1 pg (27.0-33.0); MEAN CORPUSCULAR HGB CONC 33.6 g/dl (32.0-36.5); MEAN CORPUSCULAR VOLUME 98.5 fl (80.0-96.0); MONO # 0.3 10^3/uL (0.0-0.8); MONO % 10.2 % (0.0-5.0); NEUTROPHILS # 1.8 10^3/uL (1.5-8.5); RED BLOOD COUNT 2.72 10^6/uL (4.30-6.10); WHITE BLOOD COUNT 3.1 10^3/uL (4.0-10.0)
[2019-09-18 06:08] LABS: PLATELET COUNT, AUTOMATED 57 10^3/uL (150-450)
[2019-09-18 06:37] LABS: ALBUMIN 3.1 GM/DL (3.2-5.2); ALT/SGPT 10 U/L (12-78); BILIRUBIN,TOTAL 0.8 MG/DL (0.2-1.0); BLOOD UREA NITROGEN 22 MG/DL (7-18); CALCIUM LEVEL 7.9 MG/DL (8.8-10.2); CARBON DIOXIDE LEVEL 27 MEQ/L (21-32); CHLORIDE LEVEL 112 MEQ/L (98-107); CREATININE FOR GFR 1.17 MG/DL (0.70-1.30); GLOMERULAR FILTRATION RATE > 60.0 (>35); GLUCOSE, FASTING 86 MG/DL (70-100); SODIUM LEVEL 142 MEQ/L (136-145); TOTAL PROTEIN 5.4 GM/DL (6.4-8.2)
[2019-09-18] MEDS: **NOTE PATIENT COMMENT** MISC XX SCH (09:40)
--- NOTE | 2019-09-18 10:27 | IPNPDOC ---
Subjective Date Seen The patient was seen on 09/18/19. Subjective Chief Complaint/HPI Patient is comfortable offers no new complaints. Has not been agitated General: Denies: ROS Unobtainable, Chills, Night Sweats, Fatigue, Malaise, Normal Appetite, Other Symptoms Constitutional: Denies: Chills, Fever, Malaise, Night Sweats, Weakness, Fatigue, Weight Loss, Lethargy, Other Pulmonary: Denies: Dyspnea, Cough, Pleuritic Chest Pain, Other Symptoms Cardiovascular: Denies: Chest Pain, Palpitations, Orthopnea, Paroxysmal Noc. Dyspnea, Edema, Lt Headedness, Other Symptoms Gastrointestinal: Denies: Nausea, Vomiting, Abdominal Pain, Diarrhea, Constipation, Melena, Hematochezia, Other Symptoms Hematologic: Reports: Other Hematologic (bicytopenia); Denies: Bruising, Bleeding Excessively, Petecchia, Purpura, Enlarged Lymph Nodes Endocrine: Denies: Polydipsia, Polyphagia, Polyuria, Heat Intolerance, Cold Intolerance, Other Endocrine Sx Musculoskeletal: Denies: Neck Pain, Back Pain, Shoulder Pain, Arm Pain, Hand Pain, Leg Pain, Foot Pain, Joint Pain, Muscle Pain, Spasms, Other Symptoms Neurological: Denies: Weakness, Numbness, Incoordination, Change in speech, Confusion, Seizures, Other Symptoms Objective Physical Examination ENT Exam: Positive: Atraumatic, Mucous membr. moist/pink Chest Exam: Positive: Clear to auscultation, Normal air movement Heart Exam: Positive: Rate Normal, Normal S1, Normal S2 Abdomen Exam: Positive: Normal bowel sounds Extremity Exam: Positive: Normal pulses Skin Exam: Positive: Nl turgor and temperature Neuro Exam: Positive: Strength at 5/5 X4 ext, Cranial Nerves 3-12 NL Psych Exam: Positive: Mood NL, Oriented x 3 Assessment /Plan Problems (1) Bradycardia Status: Chronic Problem Text: . 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 We will DC one-to-one watch (4) Chronic anemia Status: Chronic Problem Text: Most likely chronic anemia. Hemoglobin and hematocrit stable Follow CBC periodically Plan/VTE VTE Prophylaxis Ordered?: Yes VS, I&O, 24H, Fishbone Vital Signs/I&O Vital Signs Date Time Temp Pulse Resp B/P (MAP) Pulse Ox O2 Delivery O2 Flow Rate FiO2 09/18/19 06:00 98.4 43 16 131/58 (82) 93 Room Air 09/15/19 12:29 98.0 I&O- Last 24 Hours up to 6 AM 09/18/19 06:00 Intake Total 2380 ml Output Total 0 ml Balance 2380 ml Laboratory Data 24H LABS Laboratory Tests 2 09/18/19 05:32: Immature Granulocyte % (Auto) 0.3, Neutrophils (%) (Auto) 56.0, Lymphocytes (%) (Auto) 28.0, Monocytes (%) (Auto) 10.2H, Eosinophils (%) (Auto) 4.5H, Basophils (%) (Auto) 1.0, Neutrophils # (Auto) 1.8, Lymphocytes # (Auto) 0.9L, Monocytes # (Auto) 0.3, Eosinophils # (Auto) 0.1, Basophils # (Auto) 0.0, Nucleated Red Blood Cells % (auto) 0.0, Immature Platelet Fraction 10.6, Anion Gap 3L, Glomerular Filtration Rate > 60.0, Calcium Level 7.9L, Total Bilirubin 0.8, Aspartate Amino Transf (AST/SGOT) 11, Alanine Aminotransferase (ALT/SGPT) 10L, Alkaline Phosphatase 39L, Total Protein 5.4L, Albumin 3.1L, Albumin/Globulin Ratio 1.35 CBC/BMP Laboratory Tests 09/18/19 05:32 Microbiology Microbiology 09/15/19 Respiratory Virus Panel (PCR) ([facility]) - Final, Complete 09/15/19 Blood Culture - Preliminary, Resulted No Growth after 72 hours. All specime... YANNA PANTOJA MD Sep 18, 2019 10:27
[2019-09-18 14:00] VITALS: BP 117/66
[2019-09-18] MEDS: TERAZOSIN 5 MG CAP PO SCH (21:06)
[2019-09-18] MEDS: LIDOCAINE 5% (LIDODERM) PATCH TD SCH (21:07)
[2019-09-18] MEDS: RAMELTEON 8 MG TAB (ROZEREM) PO SCH (21:07)
[2019-09-18 22:00] VITALS: BP 156/72
[2019-09-19] MEDS: ACETAMINOPHEN TAB 650MG DOSE (2X325MG) PO SCH ×3 (05:31→22:02)
[2019-09-19 06:00] VITALS: BP 120/57
[2019-09-19] MEDS: **NOTE PATIENT COMMENT** MISC XX SCH (09:45)
--- NOTE | 2019-09-19 10:46 | IPNPDOC ---
Subjective Date Seen The patient was seen on 09/19/19. Subjective Chief Complaint/HPI Patient offers no new complaints much more in good spirits today General: Denies: ROS Unobtainable, Chills, Night Sweats, Fatigue, Malaise, Normal Appetite, Other Symptoms Constitutional: Denies: Chills, Fever, Malaise, Night Sweats, Weakness, Fatigue, Weight Loss, Lethargy, Other Pulmonary: Denies: Dyspnea, Cough, Pleuritic Chest Pain, Other Symptoms Cardiovascular: Denies: Chest Pain, Palpitations, Orthopnea, Paroxysmal Noc. Dyspnea, Edema, Lt Headedness, Other Symptoms Gastrointestinal: Denies: Nausea, Vomiting, Abdominal Pain, Diarrhea, Constipation, Melena, Hematochezia, Other Symptoms Endocrine: Denies: Polydipsia, Polyphagia, Polyuria, Heat Intolerance, Cold Intolerance, Other Endocrine Sx Musculoskeletal: Denies: Neck Pain, Back Pain, Shoulder Pain, Arm Pain, Hand Pain, Leg Pain, Foot Pain, Joint Pain, Muscle Pain, Spasms, Other Symptoms Neurological: Denies: Weakness, Numbness, Incoordination, Change in speech, Confusion, Seizures, Other Symptoms Objective Physical Examination ENT Exam: Positive: Atraumatic, Mucous membr. moist/pink Chest Exam: Positive: Clear to auscultation, Normal air movement Heart Exam: Positive: Rate Normal, Normal S1, Normal S2 Abdomen Exam: Positive: Normal bowel sounds Extremity Exam: Positive: Normal pulses Skin Exam: Positive: Nl turgor and temperature Neuro Exam: Positive: Strength at 5/5 X4 ext, Cranial Nerves 3-12 NL Psych Exam: Positive: Mood NL, Oriented x 3 Assessment /Plan Problems (1) Bradycardia Status: Chronic Problem Text: . Asymptomatic sinus bradycardia, most likely chronic in nature DC telemetry , No further workup needed at this point Follow with his landmen for further recommendations as an outpatient (2) Thrombocytopenia Status: Acute Problem Text: Patient does have bicytopenia with hemoglobin of 9 and platelets of 57. We will repeat CBC in a.m. , But patient is completely asymptomatic, most likely chronic in nature, Patient is completely asymptomatic medical records from [facility] has been called to review and to determine if patient needs any further workup (3) Dementia Status: Chronic Problem Text: Continue present care PT, OT in progress Patient is not agitated. We will DC one-to-one watch Patient is awaiting placement in a care home facility Change status to [facility] in the meantime (4) Chronic anemia Status: Chronic Problem Text: Most likely chronic anemia. Hemoglobin and hematocrit stable Follow CBC periodically Plan/VTE VTE Prophylaxis Ordered?: Yes VS, I&O, 24H, Fishbone Vital Signs/I&O Vital Signs Date Time Temp Pulse Resp B/P (MAP) Pulse Ox O2 Delivery O2 Flow Rate FiO2 09/19/19 06:00 98.3 44 16 120/57 (78) 98 Room Air 09/15/19 12:29 98.0 I&O- Last 24 Hours up to 6 AM 09/19/19 06:00 Intake Total 1280 ml Balance 1280 ml Laboratory Data Microbiology Microbiology 09/15/19 Respiratory Virus Panel (PCR) ([facility]) - Final, Complete 09/15/19 Blood Culture - Preliminary, Resulted No Growth after 72 hours. All specime... YANNA PANTOJA MD Sep 19, 2019 10:46
[2019-09-19 11:23] LABS: HEMATOCRIT 27.4 % (42.0-52.0); MEAN CORPUSCULAR HEMOGLOBIN 32.7 pg (27.0-33.0); MEAN CORPUSCULAR HGB CONC 32.8 g/dl (32.0-36.5); MEAN CORPUSCULAR VOLUME 99.6 fl (80.0-96.0); RED BLOOD COUNT 2.75 10^6/uL (4.30-6.10); WHITE BLOOD COUNT 3.8 10^3/uL (4.0-10.0)
[2019-09-19 11:28] LABS: PLATELET COUNT, AUTOMATED 55 10^3/uL (150-450)
[2019-09-19] MEDS: TERAZOSIN 5 MG CAP PO SCH (20:37)
[2019-09-19] MEDS: RAMELTEON 8 MG TAB (ROZEREM) PO SCH (20:37)
[2019-09-19] MEDS: LIDOCAINE 5% (LIDODERM) PATCH TD SCH (20:37)
[2019-09-20] MEDS: ACETAMINOPHEN TAB 650MG DOSE (2X325MG) PO SCH ×3 (05:17→21:35)
[2019-09-20 06:00] VITALS: BP 147/70
[2019-09-20] MEDS: **NOTE PATIENT COMMENT** MISC XX SCH (09:00)
--- NOTE | 2019-09-20 10:18 | MEDONCTEEN ---
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 Patient's hemoglobin has also been relatively stable since 2013 Patient's platelet count has been low down to the 50s in the past and dates back from 2013 Patient admitted for complications from dementia and was combative No evidence of active infection Clinical impression is that were dealing with her primary bone marrow disorder and suspect underlying myelodysplastic syndrome Given the patient's comorbid problems and active medical issues, conservative measurements are indicated Bone marrow biopsy is not currently indicated as it would not change our treatment which will mainly be supportive Recommend blood transfusion support as needed Recommend outpatient hematology consult if warranted based on patient's other active medical issues B12 level was on the low side Would recommend repletion therapy Homocysteine level and methylmalonic acid level could help confirm if patient truly deficient or not as serum B12 levels are somewhat inaccurate Last folate level was in 2016 Iron stores are adequate SMITA SHANNON MD Sep 20, 2019 10:18
--- NOTE | 2019-09-20 10:21 | IPNPDOC ---
Subjective Date Seen The patient was seen on 09/20/19. Subjective Chief Complaint/HPI Patient lying comfortably in bed. Offers no new complaints at the present time General: Denies: ROS Unobtainable, Chills, Night Sweats, Fatigue, Malaise, Normal Appetite, Other Symptoms Pulmonary: Denies: Dyspnea, Cough, Pleuritic Chest Pain, Other Symptoms Cardiovascular: Denies: Chest Pain, Palpitations, Orthopnea, Paroxysmal Noc. Dyspnea, Edema, Lt Headedness, Other Symptoms Gastrointestinal: Denies: Nausea, Vomiting, Abdominal Pain, Diarrhea, Consti pation, Melena, Hematochezia, Other Symptoms Musculoskeletal: Denies: Neck Pain, Back Pain, Shoulder Pain, Arm Pain, Hand Pain, Leg Pain, Foot Pain, Joint Pain, Muscle Pain, Spasms, Other Symptoms Neurological: Denies: Weakness, Numbness, Incoordination, Change in speech, Confusion, Seizures, Other Symptoms Objective Physical Examination General Exam: Positive: Alert, Cooperative ENT Exam: Positive: Atraumatic, Mucous membr. moist/pink Chest Exam: Positive: Clear to auscultation, Normal air movement Heart Exam: Positive: Rate Normal, Normal S1, Normal S2 Abdomen Exam: Positive: Normal bowel sounds Extremity Exam: Positive: Normal pulses Skin Exam: Positive: Nl turgor and temperature Neuro Exam: Positive: Strength at 5/5 X4 ext, Cranial Nerves 3-12 NL Psych Exam: Positive: Mood NL, Oriented x 3 Assessment /Plan Problems (1) Bradycardia Status: Chronic Problem Text: Asymptomatic sinus bradycardia, most likely chronic in nature , No further workup or monitoring needed (2) Thrombocytopenia Status: Acute Problem Text: 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 Since his WBC, hemoglobin and platelets. Number has been low since 2014. I had reviewed patient. All of [facility] outpatient records, but there is no mention of pancytopenia, arm are myelodysplastic syndrome and then notes. As patient is completely asymptomatic. He probably will benefit from follow-up hematoma clinic at the [facility] as an outpatient for any further workup if needed In the meantime, patient is awaiting placement in a alf facility Will monitor CBC while patient is still inpatient at [facility] (3) Dementia Status: Chronic Problem Text: Patient is completely asymptomatic and not agitated, but very cooperative Continue present meds (4) Chronic anemia Status: Chronic Problem Text: Most likely chronic in nature, but as per Dr William's recommendation, we will order MMA levels to confirm vitamin B12 deficiency, which is chronic in nature Plan/VTE VTE Prophylaxis Ordered?: Yes VS, I&O, 24H, Fishbone Vital Signs/I&O Vital Signs Date Time Temp Pulse Resp B/P (MAP) Pulse Ox O2 Delivery O2 Flow Rate FiO2 09/20/19 06:00 98.0 66 17 147/70 (95) 100 Room Air 09/15/19 12:29 98.0 I&O- Last 24 Hours up to 6 AM 09/20/19 06:00 Intake Total 3260 ml Balance 3260 ml Laboratory Data 24H LABS Laboratory Tests 2 09/19/19 11:11: Nucleated Red Blood Cells % (auto) 0.0, Immature Platelet Fraction 10.4 CBC/BMP Laboratory Tests 09/19/19 11:11 Microbiology Microbiology 09/15/19 Respiratory Virus Panel (PCR) ([facility]) - Final, Complete 09/15/19 Blood Culture - Final, Complete NO GROWTH AFTER 5 DAYS YANNA PANTOJA MD Sep 20, 2019 10:21
[2019-09-20] MEDS: TERAZOSIN 5 MG CAP PO SCH (20:39)
[2019-09-20] MEDS: LIDOCAINE 5% (LIDODERM) PATCH TD SCH (20:39)
[2019-09-20] MEDS: RAMELTEON 8 MG TAB (ROZEREM) PO SCH (20:39)
[2019-09-21 05:51] LABS: HEMATOCRIT 25.8 % (42.0-52.0); HEMOGLOBIN 8.4 g/dl (13.5-17.5); MEAN CORPUSCULAR HEMOGLOBIN 32.4 pg (27.0-33.0); MEAN CORPUSCULAR HGB CONC 32.6 g/dl (32.0-36.5); MEAN CORPUSCULAR VOLUME 99.6 fl (80.0-96.0); RED BLOOD COUNT 2.59 10^6/uL (4.30-6.10); WHITE BLOOD COUNT 2.9 10^3/uL (4.0-10.0)
[2019-09-21 05:53] LABS: PLATELET COUNT, AUTOMATED 40 10^3/uL (150-450)
[2019-09-21] MEDS: ACETAMINOPHEN TAB 650MG DOSE (2X325MG) PO SCH (05:55)
[2019-09-21 06:00] VITALS: BP 120/57
[2019-09-21 08:09] LABS: PLTBLUE- EDTA FREE CALC 37 K/mm3 (172-450)
[2019-09-21 08:50] LABS: PLTBLUE- EDTA FREE MACHINE 34 10^3/uL (172-450)
--- NOTE | 2019-09-21 10:00 | IPNPDOC ---
Subjective Date Seen The patient was seen on 09/21/19. Subjective Chief Complaint/HPI Patient is comfortable in no distress. Offers no complaints General: Denies: ROS Unobtainable, Chills, Night Sweats, Fatigue, Malaise, Normal Appetite, Other Symptoms Constitutional: Denies: Chills, Fever, Malaise, Night Sweats, Weakness, Fatigue, Weight Loss, Lethargy, Other Pulmonary: Denies: Dyspnea, Cough, Pleuritic Chest Pain, Other Symptoms Cardiovascular: Denies: Chest Pain, Palpitations, Orthopnea, Paroxysmal Noc. Dyspnea, Edema, Lt Headedness, Other Symptoms Gastrointestinal: Denies: Nausea, Vomiting, Abdominal Pain, Diarrhea, Constipation, Melena, Hematochezia, Other Symptoms Musculoskeletal: Denies: Neck Pain, Back Pain, Shoulder Pain, Arm Pain, Hand Pain, Leg Pain, Foot Pain, Joint Pain, Muscle Pain, Spasms, Other Symptoms Neurological: Denies: Weakness, Numbness, Incoordination, Change in speech, Confusion, Seizures, Other Symptoms Objective Physical Examination ENT Exam: Positive: Atraumatic, Mucous membr. moist/pink Chest Exam: Positive: Clear to auscultation, Normal air movement Heart Exam: Positive: Rate Normal, Normal S1, Normal S2 Abdomen Exam: Positive: Normal bowel sounds Extremity Exam: Positive: Normal pulses Skin Exam: Positive: Nl turgor and temperature Neuro Exam: Positive: Strength at 5/5 X4 ext, Cranial Nerves 3-12 NL Psych Exam: Positive: Mood NL, Oriented x 3 Assessment /Plan Problems (1) Bradycardia Status: Chronic Problem Text: Asymptomatic sinus bradycardia, most likely chronic in nature , No further workup or monitoring needed (2) Thrombocytopenia Status: Acute Problem Text: 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 Since his WBC, hemoglobin and platelets. Number has been low since 2014. I had reviewed patient. All of [facility] outpatient records, but there is no mention of pancytopenia, arm are myelodysplastic syndrome and then notes. As patient is completely asymptomatic. He probably will benefit from follow-up hematoma clinic at the [facility] as an outpatient for any further workup if needed In the meantime, patient is awaiting [facility] in a [facility] facility Patient's platelet count is 40,000, and EDTA free level is 37,000. He is asymptomatic. We will monitor his platelet levels. If needed, we will transfuse him. (3) Dementia Status: Chronic Problem Text: Patient is completely asymptomatic and not agitated, but very cooperative Continue present meds (4) Chronic anemia Status: Chronic Problem Text: Most likely chronic in nature, but as per Dr William's recommendation, we will order MMA levels to confirm vitamin B12 deficiency, which is chronic in nature Plan/VTE VTE Prophylaxis Ordered?: Yes VS, I&O, 24H, Fishbone Vital Signs/I&O Vital Signs Date Time Temp Pulse Resp B/P (MAP) Pulse Ox O2 Delivery O2 Flow Rate FiO2 09/21/19 06:00 97.8 54 18 120/57 (78) 98 Room Air 09/15/19 12:29 98.0 I&O- Last 24 Hours up to 6 AM 09/21/19 06:00 Intake Total 610 ml Balance 610 ml Laboratory Data 24H LABS Laboratory Tests 2 09/21/19 05:31: Nucleated Red Blood Cells % (auto) 0.0, Immature Platelet Fraction 9.6 09/21/19 07:39: Platelet Count, EDTA Free 37L CBC/BMP Laboratory Tests 09/21/19 05:31 Microbiology Microbiology 09/15/19 Respiratory Virus Panel (PCR) ([facility]) - Final, Complete 09/15/19 Blood Culture - Final, Complete NO GROWTH AFTER 5 DAYS YANNA PANTOJA MD Sep 21, 2019 10:00
[2019-09-21] MEDS: **NOTE PATIENT COMMENT** MISC XX SCH (10:23)
[2019-09-21] MEDS ORDERED: PERCOCET 5MG/325MG TAB PO PRN (16:00)
[2019-09-21] MEDS: TERAZOSIN 5 MG CAP PO SCH (21:00)
[2019-09-21] MEDS: RAMELTEON 8 MG TAB (ROZEREM) PO SCH (21:01)
[2019-09-21] MEDS: LIDOCAINE 5% (LIDODERM) PATCH TD SCH (21:01)
[2019-09-22] MEDS ORDERED: LORazepam 2 MG/ML VIAL (J2060) IM STA (03:31)
[2019-09-22] MEDS ORDERED: LORazepam 2 MG/ML VIAL (J2060) As Ordered ONE (03:36)
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
[2019-09-22 06:00] VITALS: BP 119/60
[2019-09-22] MEDS: **NOTE PATIENT COMMENT** MISC XX SCH (08:15)
--- NOTE | 2019-09-22 09:22 | IPNPDOC ---
Subjective Date Seen The patient was seen on 09/22/19. Subjective Chief Complaint/HPI Patient was agitated last night, hence was given Ativan IM. Patient is comfortably sleeping at this time, in no apparent distress General: Denies: ROS Unobtainable, Chills, Night Sweats, Fatigue, Malaise, No rmal Appetite, Other Symptoms Constitutional: Denies: Chills, Fever, Malaise, Night Sweats, Weakness, Fati florentino, Weight Loss, Lethargy, Other Pulmonary: Denies: Dyspnea, Cough, Pleuritic Chest Pain, Other Symptoms Cardiovascular: Denies: Chest Pain, Palpitations, Orthopnea, Paroxysmal Noc. Dyspnea, Edema, Lt Headedness, Other Symptoms Gastrointestinal: Denies: Nausea, Vomiting, Abdominal Pain, Diarrhea, Constipation, Melena, Hematochezia, Other Symptoms Musculoskeletal: Denies: Neck Pain, Back Pain, Shoulder Pain, Arm Pain, Hand Pain, Leg Pain, Foot Pain, Joint Pain, Muscle Pain, Spasms, Other Symptoms Neurological: Denies: Weakness, Numbness, Incoordination, Change in speech, Confusion, Seizures, Other Symptoms Objective Physical Examination ENT Exam: Positive: Atraumatic, Mucous membr. moist/pink Chest Exam: Positive: Clear to auscultation, Normal air movement Heart Exam: Positive: Rate Normal, Normal S1, Normal S2 Abdomen Exam: Positive: Normal bowel sounds Extremity Exam: Positive: Normal pulses Skin Exam: Positive: Nl turgor and temperature Neuro Exam: Positive: Strength at 5/5 X4 ext, Cranial Nerves 3-12 NL Psych Exam: Positive: Mood NL, Oriented x 3 Assessment /Plan Problems (1) Bradycardia Status: Chronic Problem Text: Asymptomatic sinus bradycardia, most likely chronic in nature , No further workup or monitoring needed (2) Thrombocytopenia Status: Acute Problem Text: 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 Since his WBC, hemoglobin and platelets. Number has been low since 2014. I had reviewed patient. All of [facility] [address] outpatient records, but there is no mention of pancytopenia, arm are myelodysplastic syndrome and then notes. As patient is completely asymptomatic. He probably will benefit from follow-up hematoma clinic at the [facility] as an outpatient for any further workup if needed In the meantime, patient is awaiting placement in a [facility] facility Patient's platelet count is 40,000, and EDTA free level is 37,000. He is asymptomatic. We will monitor his platelet levels. If needed, we will transfuse him. Blood work has been ordered for tomorrow morning, as patient was agitated this morning's blood work was not done (3) Dementia Status: Chronic Problem Text: Patient is sedated with Ativan secondary to agitation. He did receive benzodiazepine last night. . We'll follow up clinically and adjust meds accordingly (4) Chronic anemia Status: Chronic Problem Text: Most likely chronic in nature, but as per Dr William's recommendation, we will order MMA levels to confirm vitamin B12 deficiency, which is chronic in nature Plan/VTE VTE Prophylaxis Ordered?: Yes VS, I&O, 24H, Fishbone Vital Signs/I&O Vital Signs Date Time Temp Pulse Resp B/P (MAP) Pulse Ox O2 Delivery O2 Flow Rate FiO2 09/22/19 06:00 98.1 56 16 119/60 (79) 97 09/21/19 06:00 Room Air I&O- Last 24 Hours up to 6 AM 09/22/19 06:00 Intake Total 960 ml Output Total 0 ml Balance 960 ml Laboratory Data Microbiology Microbiology 09/15/19 Respiratory Virus Panel (PCR) (CORINNA) - Final, Complete 09/15/19 Blood Culture - Final, Complete NO GROWTH AFTER 5 DAYS YANNA PANTOJA MD Sep 22, 2019 09:22
[2019-09-22] MEDS: RAMELTEON 8 MG TAB (ROZEREM) PO SCH (21:39)
[2019-09-22] MEDS: LIDOCAINE 5% (LIDODERM) PATCH TD SCH (21:39)
[2019-09-22] MEDS: TERAZOSIN 5 MG CAP PO SCH (21:40)
[2019-09-23 06:00] VITALS: BP 108/66
[2019-09-23 06:11] LABS: BASO % 0.6 % (0.0-1.0); EOS # 0.2 10^3/uL (0.0-0.5); EOS % 4.8 % (0.0-3.0); HEMATOCRIT 24.3 % (42.0-52.0); HEMOGLOBIN 8.1 g/dl (13.5-17.5); LYMPH % 30.8 % (24.0-44.0); MEAN CORPUSCULAR HEMOGLOBIN 33.3 pg (27.0-33.0); MEAN CORPUSCULAR HGB CONC 33.3 g/dl (32.0-36.5); MONO # 0.4 10^3/uL (0.0-0.8); MONO % 11.5 % (0.0-5.0); NEUTROPHILS # 1.6 10^3/uL (1.5-8.5); RED BLOOD COUNT 2.43 10^6/uL (4.30-6.10); WHITE BLOOD COUNT 3.1 10^3/uL (4.0-10.0)
[2019-09-23 06:32] LABS: ALBUMIN 2.9 GM/DL (3.2-5.2); BILIRUBIN,TOTAL 0.6 MG/DL (0.2-1.0); CALCIUM LEVEL 7.6 MG/DL (8.8-10.2); CREATININE FOR GFR 1.28 MG/DL (0.70-1.30); GLOMERULAR FILTRATION RATE 57.1 (>35); POTASSIUM SERUM 4.4 MEQ/L (3.5-5.1); TOTAL PROTEIN 5.4 GM/DL (6.4-8.2)
[2019-09-23 06:57] LABS: PLATELET COUNT, AUTOMATED 37 10^3/uL (150-450)
[2019-09-23] MEDS: **NOTE PATIENT COMMENT** MISC XX SCH (09:00)
--- NOTE | 2019-09-23 10:44 | IPNPDOC ---
Subjective Date Seen The patient was seen on 09/23/19. Subjective Chief Complaint/HPI Patient sleeping comfortably, easily aroused offers no new complaints. Not agitated, denies any complaints General: Denies: ROS Unobtainable, Chills, Night Sweats, Fatigue, Malaise, Normal Appetite, Other Symptoms Constitutional: Denies: Chills, Fever, Malaise, Night Sweats, Weakness, Fatigue, Weight Loss, Lethargy, Other Pulmonary: Denies: Dyspnea, Cough, Pleuritic Chest Pain, Other Symptoms Gastrointestinal: Denies: Nausea, Vomiting, Abdominal Pain, Diarrhea, Constipation, Melena, Hematochezia, Other Symptoms Musculoskeletal: Denies: Neck Pain, Back Pain, Shoulder Pain, Arm Pain, Hand Pain, Leg Pain, Foot Pain, Joint Pain, Muscle Pain, Spasms, Other Symptoms Neurological: Denies: Weakness, Numbness, Incoordination, Change in speech, Confusion, Seizures, Other Symptoms Objective Physical Examination General Exam: Positive: Alert, Cooperative ENT Exam: Positive: Atraumatic, Mucous membr. moist/pink Chest Exam: Positive: Clear to auscultation, Normal air movement Heart Exam: Positive: Rate Normal, Normal S1, Normal S2 Abdomen Exam: Positive: Normal bowel sounds Extremity Exam: Positive: Normal pulses Skin Exam: Positive: Nl turgor and temperature Neuro Exam: Positive: Strength at 5/5 X4 ext, Cranial Nerves 3-12 NL Psych Exam: Positive: Mood NL, Oriented x 3 Assessment /Plan Problems (1) Bradycardia Status: Chronic Problem Text: Asymptomatic sinus bradycardia, most likely chronic in nature , No further workup or monitoring needed (2) Thrombocytopenia Status: Acute Problem Text: D[facility]ed with 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 Since his WBC, hemoglobin and platelets. Number has been low since 2014. I had reviewed patient. All of [facility] outpatient records, but there is no mention of pancytopenia, arm are myelodysplastic syndrome and then notes. As patient is completely asymptomatic. He probably will benefit from follow-up hematoma clinic at the [facility] as an outpatient for any further workup if needed In the meantime, patient is awaiting placement in a [facility] facility Patient's platelet count today is 37,000, I will call oncology again today and request official consult Please follow the oncology recommendation was to consult is done. A.m. level work ordered (3) Dementia Status: Chronic Problem Text: Patient is a awake and cooperative not agitated Continue present care Discussed with patient's sister, Sandra last night over the phone and she agrees with placement of patient to facility with dementia unit as patient lives by himself Discussed with case management and social work today and they will start looking into placement of patient to appropriate facility (4) Chronic anemia Status: Chronic Problem Text: Most likely chronic in nature, but as per Dr William's recommendation, we will order MMA levels to confirm vitamin B12 deficiency, which is chronic in nature MMA and homocysteine levels are still pending. Please follow once available and then supplement Vit B12 as required Plan/VTE VTE Prophylaxis Ordered?: Yes VS, I&O, 24H, Fishbone Vital Signs/I&O Vital Signs Date Time Temp Pulse Resp B/P (MAP) Pulse Ox O2 Delivery O2 Flow Rate FiO2 09/23/19 06:00 97.0 54 20 108/66 (80) 96 09/21/19 06:00 Room Air I&O- Last 24 Hours up to 6 AM 09/23/19 06:00 Intake Total 1260 ml Output Total 0 ml Balance 1260 ml Laboratory Data 24H LABS Laboratory Tests 2 09/23/19 05:40: Immature Granulocyte % (Auto) 0.3, Neutrophils (%) (Auto) 52.0, Lymphocytes (%) (Auto) 30.8, Monocytes (%) (Auto) 11.5H, Eosinophils (%) (Auto) 4.8H, Basophils (%) (Auto) 0.6, Neutrophils # (Auto) 1.6, Lymphocytes # (Auto) 1.0L, Monocytes # (Auto) 0.4, Eosinophils # (Auto) 0.2, Basophils # (Auto) 0.0, Nucleated Red Blood Cells % (auto) 0.0, Immature Platelet Fraction 9.9, Anion Gap 4L, Glomerular Filtration Rate 57.1, Calcium Level 7.6L, Total Bilirubin 0.6, Aspartate Amino Transf (AST/SGOT) 38H, Alanine Aminotransferase (ALT/SGPT) 70, Alkaline Phosphatase 167H, Total Protein 5.4L, Albumin 2.9L, Albumin/Globulin Ratio 1.16 CBC/BMP Laboratory Tests 09/23/19 05:40 Microbiology Microbiology 09/15/19 Respiratory Virus Panel (PCR) ([facility]) - Final, Complete 09/15/19 Blood Culture - Final, Complete NO GROWTH AFTER 5 DAYS YANNA PANTOJA MD Sep 23, 2019 10:44
[2019-09-23] MEDS: TERAZOSIN 5 MG CAP PO SCH (20:15)
[2019-09-23] MEDS: RAMELTEON 8 MG TAB (ROZEREM) PO SCH (20:15)
[2019-09-23] MEDS: LIDOCAINE 5% (LIDODERM) PATCH TD SCH (20:16)
[2019-09-23 22:00] VITALS: BP 126/76
[2019-09-24 06:00] VITALS: BP 109/77
[2019-09-24 06:44] LABS: HEMATOCRIT 24.4 % (42.0-52.0); HEMOGLOBIN 8.1 g/dl (13.5-17.5); MEAN CORPUSCULAR HEMOGLOBIN 33.2 pg (27.0-33.0); MEAN CORPUSCULAR HGB CONC 33.2 g/dl (32.0-36.5); RED BLOOD COUNT 2.44 10^6/uL (4.30-6.10); WHITE BLOOD COUNT 3.5 10^3/uL (4.0-10.0)
[2019-09-24 06:46] LABS: PLATELET COUNT, AUTOMATED 45 10^3/uL (150-450)
[2019-09-24] MEDS: **NOTE PATIENT COMMENT** MISC XX SCH (09:00)
[2019-09-24 10:06] LABS: HOMOCYST(E)INE SERUM 18.9 umol/L (0.0-21.3)
--- NOTE | 2019-09-24 20:10 | IPNPDOC ---
Date Seen The patient was seen on 09/24/19. Progress Note SUBJECTIVE: Pleasantly confused in no acute distress, baseline. PLTs stable at 45. No signs of bleeding. Denies chest pain, n/v/d, shortness of breath. OBJECTIVE: VITAL SIGNS: Please see below GEN: Slim build / well developed/ NAD INTEGUMENT: not flushed/ not jaundice HEENT: NCAT CVS: bradycardic with regular rhythm. NMRG/ radial pulses intact / no lower extremity edema LUNGS: lungs are clear to auscultation bilaterally on room air ABDOMEN: Contour (flat) MSK/EXTREMITIES: range of motion intact in all 4 extremities / requires assistance to stand and walk / tophi affecting multiple joints NEURO: CN 2-12 are grossly intact / speech is not dysarthric PSYCH: alert and oriented to person but not place or time/ able to understand and follow simple commands LABORATORY DATA: Please see below. IMAGING: No new imaging ASSESSMENT: Patient is an 84-year-old admitted for pancytopenia, monitoring of bradycardia and requiring placement in SNF. PLAN: 1. Bradycardia. HR 40-50, asymptomatic. Chronic. Denies symptoms. No further w/up needed. 2. [facility]. [facility] system. Discussed with heme and they are believing this to be possibly myelodysplastic process. Awaiting official consult. 3. 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 Tylenol, Lidocaine patch. 4. Alzheimer's Dementia, Lewey body dementia, chronic and severe. Worsening. Follows with neurologist. CT head unrevealing. Lives alone but will need placement. 5. Physical deconditioning, weakness. fall risk. PT/OT. 6. CKD 3 - Cr wnl. Careful with nephrotoxic meds. F/u labs daily. 7. BPH - terazosin 8. Gout w Tophi - UA wnl. Stable. 9. Paroxysmal atrial fibrillation. Not on AC at home. 10. DVT px. SCDS. Avoiding AC due to pancytopenia at this time. DISPO: Currently under inpatient status. Will require SNF placement, correctional case records supervisor and social work are working on this. VS, I&O, 24H, Fishbone Vital Signs/I&O Vital Signs Date Time Temp Pulse Resp B/P (MAP) Pulse Ox O2 Delivery O2 Flow Rate FiO2 09/24/19 06:00 98.1 64 16 109/77 (88) 97 Room Air I&O- Last 24 Hours up to 6 AM 09/24/19 06:00 Intake Total 1920 ml Output Total 275 ml Balance 1645 ml Laboratory Data 24H LABS Laboratory Tests 2 09/24/19 06:17: Nucleated Red Blood Cells % (auto) 0.0, Immature Platelet Fraction 10.7 CBC/BMP Laboratory Tests 09/24/19 06:17 Microbiology Microbiology 09/15/19 Respiratory Virus Panel (PCR) ([facility]) - Final, Complete 09/15/19 Blood Culture - Final, Complete NO GROWTH AFTER 5 DAYS Current Medications Current Medications Medications (Trade) Dose Ordered Sig/Elias Route PRN Reason Start Time Stop Time Status Last Admin Dose Admin Acetaminophen (Tylenol Tab) 650 mg Q4H PRN PO PAIN OR FEVER 09/14/19 19:30 09/14/19 20:19 DC Acetaminophen (Tylenol Tab) 1,300 mg Q8H PO 09/14/19 22:00 09/21/19 15:58 DC 09/20/19 15:04 Al Hydrox/Mg Hydrox/Simethicone (Mylanta) 30 ml DAILY PRN PO DYSPEPSIA 09/14/19 19:30 Aspirin (Ecotrin) 81 mg DAILY PO 09/15/19 09:00 09/15/19 06:48 DC Atropine Sulfate (Atropine Sulfate) 0.5 mg Q1HP PRN IV sustained HR <30 w symptoms 09/14/19 20:45 Hold Home Med (Med Rec Complete!) ASDIRECTED XX 09/14/19 19:30 09/14/19 19:31 DC Lidocaine (Lidoderm Patch) 1 patch QHS TD 09/14/19 21:00 09/23/19 20:16 Lorazepam (Ativan) 1 mg STAT STAT IM 09/15/19 21:44 09/15/19 21:45 DC 09/15/19 22:07 Lorazepam (Ativan) 1 mg STAT STAT IM 09/22/19 03:31 09/22/19 03:34 DC 09/22/19 03:40 Non-Formulary Medication ( See Comment Field Below ) REMOVE LIDODERM PATCH DAILY XX 09/15/19 09:00 09/24/19 09:00 Oxycodone/ Acetaminophen (Percocet 5mg/ 325mg Tablet) 1 tab Q6HP PRN PO MILD/MODERATE PAIN (PS 1-7) 09/21/19 16:00 Oxycodone/ Acetaminophen (Percocet 5mg/ 325mg Tablet) 2 tab Q6HP PRN PO SEVERE PAIN (PS 8-10) 09/21/19 16:00 Quetiapine Fumarate (SEROquel XR) 200 mg QHS PO 09/15/19 22:00 09/15/19 21:50 DC Quetiapine Fumarate (SEROquel XR) 200 mg QHS PRN PO Agitation 09/15/19 22:00 09/15/19 22:52 DC Quetiapine Fumarate (SEROquel) 12.5 mg DAILY PRN PO agitation 09/16/19 09:00 Quetiapine Fumarate (SEROquel) 12.5 mg DAILY@20 PO 09/16/19 20:00 09/15/19 23:00 DC Quetiapine Fumarate (SEROquel) 12.5 mg QHS PO 09/16/19 21:00 09/15/19 23:01 DC Quetiapine Fumarate (SEROquel) 12.5 mg QHS PRN PO agitation 09/15/19 23:00 Ramelteon (Rozerem) 8 mg QHS PO 09/14/19 20:30 09/23/19 20:15 Terazosin HCl (Hytrin) 10 mg QHS PO 09/14/19 21:00 09/23/19 20:15 Allergies Coded Allergies: No Known Allergies (Unverified , 08/01/13) Sravani Denton MD Sep 24, 2019 20:10
[2019-09-24] MEDS: TERAZOSIN 5 MG CAP PO SCH (21:00)
[2019-09-24] MEDS: LIDOCAINE 5% (LIDODERM) PATCH TD SCH (21:00)
[2019-09-24] MEDS: RAMELTEON 8 MG TAB (ROZEREM) PO SCH (21:00)
[2019-09-25] MEDS: PERCOCET 5MG/325MG TAB PO PRN (00:42)
[2019-09-25 06:00] VITALS: BP 110/68
[2019-09-25 06:59] LABS: BASO % 1.2 % (0.0-1.0); EOS # 0.2 10^3/uL (0.0-0.5); EOS % 5.2 % (0.0-3.0); HEMATOCRIT 24.4 % (42.0-52.0); HEMOGLOBIN 8.1 g/dl (13.5-17.5); LYMPH # 1.1 10^3/uL (1.5-5.0); LYMPH % 32.9 % (24.0-44.0); MEAN CORPUSCULAR HEMOGLOBIN 33.2 pg (27.0-33.0); MEAN CORPUSCULAR HGB CONC 33.2 g/dl (32.0-36.5); MONO # 0.4 10^3/uL (0.0-0.8); MONO % 11.6 % (0.0-5.0); NEUTROPHILS # 1.7 10^3/uL (1.5-8.5); NEUTROPHILS % 48.8 % (36.0-66.0); RED BLOOD COUNT 2.44 10^6/uL (4.30-6.10); WHITE BLOOD COUNT 3.5 10^3/uL (4.0-10.0)
[2019-09-25 07:01] LABS: PLATELET COUNT, AUTOMATED 50 10^3/uL (150-450)
[2019-09-25 07:29] LABS: ALBUMIN 3.1 GM/DL (3.2-5.2); ALT/SGPT 35 U/L (12-78); BILIRUBIN,TOTAL 0.7 MG/DL (0.2-1.0); BLOOD UREA NITROGEN 29 MG/DL (7-18); CARBON DIOXIDE LEVEL 28 MEQ/L (21-32); CHLORIDE LEVEL 110 MEQ/L (98-107); CREATININE FOR GFR 1.18 MG/DL (0.70-1.30); GLOMERULAR FILTRATION RATE > 60.0 (>35); GLUCOSE, FASTING 85 MG/DL (70-100); POTASSIUM SERUM 4.3 MEQ/L (3.5-5.1); SODIUM LEVEL 142 MEQ/L (136-145); TOTAL PROTEIN 5.3 GM/DL (6.4-8.2)
[2019-09-25] MEDS: **NOTE PATIENT COMMENT** MISC XX SCH (09:16)
[2019-09-25] MEDS: CYANOCOBALAMIN 500 MCG TAB PO SCH (09:16)
--- NOTE | 2019-09-25 17:28 | CR.PDOC ---
General Date of Consultation: Sep 25, 2019 Referring Provider: YANNA PANTOJA MD Attending Physician: SMITA SHANNON MD Consultation HEMATOLOGY/ONCOLOGY REASON FOR CONSULTATION/CHIEF COMPLAINT: Pancytopenia HISTORY OF PRESENT ILLNESS: Patient is a pleasant but suffering from moderate/dementia with admission due to pain and difficulty walking. Patient is awaiting a [facility] facility placement We do not have access to patient's previous [facility] but from the chart it seems that this is not a new problem regarding the pancytopenia Patient had stable leukopenia since September 14 in the 3-3.5 range Patient's had anemia in the 8-9 range. With one value at 6.9 on September 14 Patient's platelet count has been from the 37-90,000 range this admission Patient has been documented to have adequate iron stores and stable renal function with a creatinine clearance more than 69 patient's had monocytosis with mildly elevated eosinophils noted on peripheral smear without evidence of myelophthisic picture Patient had an elevated methylmalonic acid but a normal homocystine level and B12 level of 297 ALLERGIES: Please see below. HOME MEDICATIONS: Please see below. PAST MEDICAL/SURGICAL HISTORY: Gout with tophi affecting multiple joints Unspecified type of dementia Chronic CKD 3 Chronic anemia Paroxysmal atrial fibrillation. Aortic valve sclerosis. Moderate mitral valve calcification. Chronic diastolic CHF / Chronic HTN Resection of unspecified type of skin cancer Hx of BPH with urinary retention status post transurethral electro-vaporization of the prostate SOCIAL HISTORY: Was living alone +18 sisters and 2 or 3 brothers + was in the [employer] FAMILY HISTORY: 1 of his brothers suddenly at a young age FAMILY HISTORY: Noncontributory REVIEW OF SYSTEMS: Patient denies PHYSICAL EXAMINATION: VITAL SIGNS: Please see below. GENERAL APPEARANCE: Awake lying in bed his outside close on and satchel noted RESPIRATORY: Essentially clear with some basilar crackles noted. CARDIOVASCULAR: Bradycardia without yeni murmur rub or gallop ABDOMEN: No palpable masses EXTREMITIES: ROE stockings on no pitting edema LABORATORY DATA: Please see below. ASSESSMENT/PLAN: Patient clearly has a primary bone marrow disorder consistent with an underlying myelodysplastic syndrome with consistent pancytopenia since admission. Patient will likely be red blood cell transfusion dependent and did receive 2 units of blood for blood cells on September 14 for hemoglobin of 6.9 g/dL. Transfusion requirements will be 2-4 units per month. Given patient's moderate to severe dementia, recommend against pursuing additional testing and recommend against bone marrow biopsy and aspiration at this particular time. Would recommend against erythropoietic growth factor support Would recommend only blood transfusion support as needed with bimonthly CBCs and transfusion as needed for hemoglobin less than 7 g/dL with 2 units of packed red blood cells each time. Patient is deemed terminal or decision is made for hospice care, with discontinue checking CBCs and discontinue blood transfusion support Patient's primary physician could obtain second opinion as an outpatient pending kinetics of his blood counts. Would recommend conservative management for this underlying problem that has no cure. Patient is not eligible for any palliative treatment and all treatment is directed at making patient transfusion independent. Chemotherapy carry significant risk and increases transfusion requirements before potentially decreasing them and is not recommended in the setting Total time care 50 minutes Please let me know there are any additional questions or concerns Vital Signs/I&O Vital Signs Date Time Temp Pulse Resp B/P (MAP) Pulse Ox O2 Delivery O2 Flow Rate FiO2 09/25/19 06:00 97.5 63 16 110/68 (82) 97 Room Air I&O- Last 24 Hours up to 6 AM 09/25/19 06:00 Intake Total 1215 ml Output Total 200 ml Balance 1015 ml Laboratory Data Labs 24H Laboratory Tests 2 09/25/19 06:35: Immature Granulocyte % (Auto) 0.3, Neutrophils (%) (Auto) 48.8, Lymphocytes (%) (Auto) 32.9, Monocytes (%) (Auto) 11.6H, Eosinophils (%) (Auto) 5.2H, Basophils (%) (Auto) 1.2H, Neutrophils # (Auto) 1.7, Lymphocytes # (Auto) 1.1L, Monocytes # (Auto) 0.4, Eosinophils # (Auto) 0.2, Basophils # (Auto) 0.0, Nucleated Red Blood Cells % (auto) 0.0, Immature Platelet Fraction 10.0, Anion Gap 4L, Glomerular Filtration Rate > 60.0, Calcium Level 8.0L, Total Bilirubin 0.7, Aspartate Amino Transf (AST/SGOT) 12, Alanine Aminotransferase (ALT/SGPT) 35, Alkaline Phosphatase 94, Total Protein 5.3L, Albumin 3.1L, Albumin/Globulin Ratio 1.41 CBC/BMP Laboratory Tests 09/25/19 06:35 Microbiology Microbiology 09/15/19 Respiratory Virus Panel (PCR) ([facility]) - Final, Complete 09/15/19 Blood Culture - Final, Complete NO GROWTH AFTER 5 DAYS Allergies Coded Allergies: No Known Allergies (Unverified , 08/01/13) Home Medications Scheduled Aspirin (Aspirin EC) 81 Mg Tablet.dr, 81 MG PO DAILY, (Reported) Terazosin Hcl (Terazosin HCl) 10 Mg Capsule, 10 MG PO QHS, (Reported) Miscellaneous Medications [Patient Comments] , (Reported) INFORMATION ON MEDICATIONS PROVIDED BY FAMILY MEMBER SMITA SHANNON MD Sep 25, 2019 17:28
[2019-09-25] MEDS: RAMELTEON 8 MG TAB (ROZEREM) PO SCH (20:04)
[2019-09-25] MEDS: LIDOCAINE 5% (LIDODERM) PATCH TD SCH (20:05)
[2019-09-25] MEDS: TERAZOSIN 5 MG CAP PO SCH (20:05)
--- NOTE | 2019-09-25 20:28 | IPNPDOC ---
Date Seen The patient was seen on 09/25/19. Progress Note SUBJECTIVE: In no acute distress, baseline. Denies chest pain, n/v/d, shortness of breath. OBJECTIVE: VITAL SIGNS: Please see below GEN: Slim build / well developed/ NAD INTEGUMENT: not flushed/ not jaundice HEENT: NCAT CVS: bradycardic with regular rhythm. NMRG/ radial pulses intact / no lower extremity edema LUNGS: lungs are clear to auscultation bilaterally on room air ABDOMEN: Contour (flat) MSK/EXTREMITIES: range of motion intact in all 4 extremities / requires assistance to stand and walk / tophi affecting multiple joints NEURO: CN 2-12 are grossly intact / speech is not dysarthric PSYCH: alert and oriented to person but not place or time/ able to understand and follow simple commands LABORATORY DATA: Please see below. IMAGING: No new imaging ASSESSMENT: Patient is an 84-year-old admitted for pancytopenia, monitoring of bradycardia and requiring placement in SNF. PLAN: 1. Bradycardia. asymptomatic. Chronic. Denies symptoms. No further w/up needed. 2. [facility]topenia. [facility] not [facility] in their system. Discussed with heme and they are believing this to be possibly myelodysplastic process. Will need referral to [facility] after discharge, no need for BM bx at this time. 3. 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 Tylenol, Lidocaine patch. 4. Alzheimer's Dementia, Lewey body dementia, chronic and severe. Worsening. Follows with neurologist. CT head unrevealing. Lives alone but will need placement. 5. Physical deconditioning, weakness. fall risk. PT/OT. 6. CKD 3 - Cr wnl. Careful with nephrotoxic meds. F/u labs daily. 7. BPH - terazosin 8. Gout w Tophi - UA wnl. Stable. 9. Paroxysmal atrial fibrillation. Not on AC at home. 10. DVT px. SCDS. Avoiding AC due to pancytopenia at this time. DISPO: Currently under inpatient status. Will require SNF placement, case manage rs and social work are working on this. VS, I&O, 24H, Fishbone Vital Signs/I&O Vital Signs Date Time Temp Pulse Resp B/P (MAP) Pulse Ox O2 Delivery O2 Flow Rate FiO2 09/25/19 20:05 126/64 4/22/20 06:00 97.5 63 16 97 Room Air I&O- Last 24 Hours up to 6 AM 09/25/19 06:00 Intake Total 1215 ml Output Total 200 ml Balance 1015 ml Laboratory Data 24H LABS Laboratory Tests 2 09/25/19 06:35: Immature Granulocyte % (Auto) 0.3, Neutrophils (%) (Auto) 48.8, Lymphocytes (%) (Auto) 32.9, Monocytes (%) (Auto) 11.6H, Eosinophils (%) (Auto) 5.2H, Basophils (%) (Auto) 1.2H, Neutrophils # (Auto) 1.7, Lymphocytes # (Auto) 1.1L, Monocytes # (Auto) 0.4, Eosinophils # (Auto) 0.2, Basophils # (Auto) 0.0, Nucleated Red Blood Cells % (auto) 0.0, Immature Platelet Fraction 10.0, Anion Gap 4L, Glomerular Filtration Rate > 60.0, Calcium Level 8.0L, Total Bilirubin 0.7, Aspartate Amino Transf (AST/SGOT) 12, Alanine Aminotransferase (ALT/SGPT) 35, Alkaline Phosphatase 94, Total Protein 5.3L, Albumin 3.1L, Albumin/Globulin Ratio 1.41 CBC/BMP Laboratory Tests 09/25/19 06:35 Microbiology Microbiology 09/15/19 Respiratory Virus Panel (PCR) ([facility]) - Final, Complete 09/15/19 Blood Culture - Final, Complete NO GROWTH AFTER 5 DAYS Current Medications Current Medications Medications (Trade) Dose Ordered Sig/Elias Route PRN Reason Start Time Stop Time Status Last Admin Dose Admin Acetaminophen (Tylenol Tab) 650 mg Q4H PRN PO PAIN OR FEVER 09/14/19 19:30 09/14/19 20:19 DC Acetaminophen (Tylenol Tab) 1,300 mg Q8H PO 09/14/19 22:00 09/21/19 15:58 DC 09/20/19 15:04 Al Hydrox/Mg Hydrox/Simethicone (Mylanta) 30 ml DAILY PRN PO DYSPEPSIA 09/14/19 19:30 Aspirin (Ecotrin) 81 mg DAILY PO 09/15/19 09:00 09/15/19 06:48 DC Atropine Sulfate (Atropine Sulfate) 0.5 mg Q1HP PRN IV sustained HR <30 w symptoms 09/14/19 20:45 Hold Cyanocobalamin (Vitamin B12) 1,000 mcg DAILY PO 09/25/19 09:00 09/25/19 09:16 Home Med (Med Rec Complete!) ASDIRECTED XX 09/14/19 19:30 09/14/19 19:31 DC Lidocaine (Lidoderm Patch) 1 patch QHS TD 09/14/19 21:00 09/25/19 20:05 Lorazepam (Ativan) 1 mg STAT STAT IM 09/15/19 21:44 09/15/19 21:45 DC 09/15/19 22:07 Lorazepam (Ativan) 1 mg STAT STAT IM 09/22/19 03:31 09/22/19 03:34 DC 09/22/19 03:40 Non-Formulary Medication ( See Comment Field Below ) REMOVE LIDODERM PATCH DAILY XX 09/15/19 09:00 09/25/19 09:16 Oxycodone/ Acetaminophen (Percocet 5mg/ 325mg Tablet) 1 tab Q6HP PRN PO MILD/MODERATE PAIN (PS 1-7) 09/21/19 16:00 09/25/19 00:42 Oxycodone/ Acetaminophen (Percocet 5mg/ 325mg Tablet) 2 tab Q6HP PRN PO SEVERE PAIN (PS 8-10) 09/21/19 16:00 Quetiapine Fumarate (SEROquel XR) 200 mg QHS PO 09/15/19 22:00 09/15/19 21:50 DC Quetiapine Fumarate (SEROquel XR) 200 mg QHS PRN PO Agitation 09/15/19 22:00 09/15/19 22:52 DC Quetiapine Fumarate (SEROquel) 12.5 mg DAILY PRN PO agitation 09/16/19 09:00 Quetiapine Fumarate (SEROquel) 12.5 mg DAILY@20 PO 09/16/19 20:00 09/15/19 23:00 DC Quetiapine Fumarate (SEROquel) 12.5 mg QHS PO 09/16/19 21:00 09/15/19 23:01 DC Quetiapine Fumarate (SEROquel) 12.5 mg QHS PRN PO agitation 09/15/19 23:00 Ramelteon (Rozerem) 8 mg QHS PO 4/11/20 20:30 09/25/19 20:04 Terazosin HCl (Hytrin) 10 mg QHS PO 09/14/19 21:00 09/25/19 20:05 Allergies Coded Allergies: No Known Allergies (Unverified , 08/01/13) Sravani Denton MD Sep 25, 2019 20:27
[2019-09-26 06:00] VITALS: BP_SYST 110
[2019-09-26 07:08] LABS: BASO % 0.5 % (0.0-1.0); EOS # 0.2 10^3/uL (0.0-0.5); EOS % 4.6 % (0.0-3.0); HEMATOCRIT 25.6 % (42.0-52.0); HEMOGLOBIN 8.4 g/dl (13.5-17.5); LYMPH % 23.4 % (24.0-44.0); MEAN CORPUSCULAR HEMOGLOBIN 32.9 pg (27.0-33.0); MEAN CORPUSCULAR HGB CONC 32.8 g/dl (32.0-36.5); MEAN CORPUSCULAR VOLUME 100.4 fl (80.0-96.0); MONO # 0.4 10^3/uL (0.0-0.8); MONO % 9.2 % (0.0-5.0); NEUTROPHILS # 2.5 10^3/uL (1.5-8.5); NEUTROPHILS % 61.6 % (36.0-66.0); RED BLOOD COUNT 2.55 10^6/uL (4.30-6.10); WHITE BLOOD COUNT 4.1 10^3/uL (4.0-10.0)
[2019-09-26 07:10] LABS: PLATELET COUNT, AUTOMATED 58 10^3/uL (150-450)
[2019-09-26 07:29] LABS: ALT/SGPT 29 U/L (12-78); BILIRUBIN,TOTAL 0.7 MG/DL (0.2-1.0); BLOOD UREA NITROGEN 29 MG/DL (7-18); CALCIUM LEVEL 7.7 MG/DL (8.8-10.2); CARBON DIOXIDE LEVEL 27 MEQ/L (21-32); CHLORIDE LEVEL 111 MEQ/L (98-107); CREATININE FOR GFR 1.09 MG/DL (0.70-1.30); GLOMERULAR FILTRATION RATE > 60.0 (>35); GLUCOSE, FASTING 84 MG/DL (70-100); POTASSIUM SERUM 4.1 MEQ/L (3.5-5.1); SODIUM LEVEL 142 MEQ/L (136-145); TOTAL PROTEIN 5.3 GM/DL (6.4-8.2)
[2019-09-26] MEDS: CYANOCOBALAMIN 500 MCG TAB PO SCH (09:50)
[2019-09-26] MEDS: **NOTE PATIENT COMMENT** MISC XX SCH (09:53)
[2019-09-26] MEDS: MIRALAX *UNIT DOSE* 17GM PACKET PO PRN (11:00)
[2019-09-26] MEDS: DOCUSATE SODIUM 100 MG CAP PO SCH ×2 (11:00→21:12)
--- NOTE | 2019-09-26 16:26 | IPNPDOC ---
Date Seen The patient was seen on 09/26/19. Progress Note SUBJECTIVE: In no acute distress sitting up in bed. Assessed again by heme/onc on 09/25/19 and not suggesting aggressive treatment currently for likely myelodysplastic syndrome. Wound on left foot 5th digit appears to be suppurative of yellowish- colored drainage but overall appears clean, no necrotic tissue or foul smell. Patient denies foot pain, chest pain, n/v/d, shortness of breath. OBJECTIVE: VITAL SIGNS: Please see below GEN: Slim build / well developed/ NAD INTEGUMENT: not flushed/ not jaundice HEENT: NCAT CVS: bradycardic with regular rhythm. NMRG/ radial pulses intact / no lower extremity edema LUNGS: lungs are clear to auscultation bilaterally on room air ABDOMEN: Contour (flat) MSK/EXTREMITIES: range of motion intact in all 4 extremities / requires assistance to stand and walk / tophi affecting multiple joints in upper and lower ext. Left foot 5th digit on has Stage II ulcer, appears clean but suppurative. No fouls smelling NEURO: CN 2-12 are grossly intact , no focal deficits PSYCH: alert and oriented to person but not place or time/ able to understand a nd follow simple commands LABORATORY DATA: Please see below. IMAGING: No new imaging ASSESSMENT: Patient is an 84-year-old admitted for pancytopenia likely myelodysplastic syndrome, monitoring of bradycardia and requiring placement in SNF. PLAN: 1. Pancytopenia likely myelodysplastic syndrome. CBC has shown improvement since arrival. At this time, heme/onc not recommending aggressive or palliative measures. Please refer to full consult for more information. [facility], no need for BM bx at this time. F/u CBC bimonthly. 2. Bradycardia, chronic. Asymptomatic. Denies symptoms. No further w/up needed. 3. Left foot 5th digit ulcer, Stage II. Clean but suppurative. Wound care ordered. Wound culture and gram stain pending. 4. Vitamin B 12 deficiency. Added daily vitamin supplementation. 5. 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 Tylenol, Lidocaine patch. 6. Alzheimer's Dementia, Lewey body dementia, chronic and severe. Worsening. Follows with neurologist. CT head unrevealing. Lives alone but will need placement. 7. Physical deconditioning, weakness. fall risk. PT/OT. 8. CKD 3 - Cr wnl. Careful with nephrotoxic meds. F/u labs daily. 9. BPH - terazosin 10. Gout w Tophi - UA wnl. Stable. 11. Paroxysmal atrial fibrillation. Not on AC at home. 12. DVT px. SCDS. Avoiding AC due to pancytopenia at this time. DISPO: Currently under inpatient status. Will require SNF placement, case making machine operator and social work are working on this. VS, I&O, 24H, Fishbone Vital Signs/I&O Vital Signs Date Time Temp Pulse Resp B/P (MAP) Pulse Ox O2 Delivery O2 Flow Rate FiO2 09/26/19 06:00 98.4 56 20 110/ (36) 96 09/25/19 06:00 Room Air I&O- Last 24 Hours up to 6 AM 09/26/19 05:59 Intake Total 1932 ml Output Total 0 ml Balance 1932 ml Laboratory Data 24H LABS Laboratory Tests 2 09/26/19 06:41: Immature Granulocyte % (Auto) 0.7, Neutrophils (%) (Auto) 61.6, Lymphocytes (%) (Auto) 23.4L, Monocytes (%) (Auto) 9.2H, Eosinophils (%) (Auto) 4.6H, Basophils (%) (Auto) 0.5, Neutrophils # (Auto) 2.5, Lymphocytes # (Auto) 1.0L, Monocytes # (Auto) 0.4, Eosinophils # (Auto) 0.2, Basophils # (Auto) 0.0, Nucleated Red Blood Cells % (auto) 0.0, Immature Platelet Fraction 9.4, Anion Gap 4L, Glomerular Filtration Rate > 60.0, Calcium Level 7.7L, Total Bilirubin 0.7, Aspartate Amino Transf (AST/SGOT) 10, Alanine Aminotransferase (ALT/SGPT) 29, Alkaline Phosphatase 83, Total Protein 5.3L, Albumin 3.0L, Albumin/Globulin Ratio 1.30 CBC/BMP Laboratory Tests 09/26/19 06:41 Microbiology Microbiology 09/26/19 Gram Stain - Final, Resulted 09/26/19 Wound Culture, Resulted Pending Current Medications Current Medications Medications (Trade) Dose Ordered Sig/Elias Route PRN Reason Start Time Stop Time Status Last Admin Dose Admin Acetaminophen (Tylenol Tab) 650 mg Q4H PRN PO PAIN OR FEVER 09/14/19 19:30 09/14/19 20:19 DC Acetaminophen (Tylenol Tab) 1,300 mg Q8H PO 09/14/19 22:00 09/21/19 15:58 DC 09/20/19 15:04 Al Hydrox/Mg Hydrox/Simethicone (Mylanta) 30 ml DAILY PRN PO DYSPEPSIA 09/14/19 19:30 Aspirin (Ecotrin) 81 mg DAILY PO 09/15/19 09:00 09/15/19 06:48 DC Atropine Sulfate (Atropine Sulfate) 0.5 mg Q1HP PRN IV sustained HR <30 w symptoms 09/14/19 20:45 Hold Cyanocobalamin (Vitamin B12) 1,000 mcg DAILY PO 09/25/19 09:00 09/26/19 09:50 Docusate Sodium (Colace) 100 mg BID PO 09/26/19 09:00 09/26/19 11:00 Home Med (Med Rec Complete!) ASDIRECTED XX 09/14/19 19:30 09/14/19 19:31 DC Lidocaine (Lidoderm Patch) 1 patch QHS TD 09/14/19 21:00 09/25/19 20:05 Lorazepam (Ativan) 1 mg STAT STAT IM 09/15/19 21:44 09/15/19 21:45 DC 09/15/19 22:07 Lorazepam (Ativan) 1 mg STAT STAT IM 09/22/19 03:31 09/22/19 03:34 DC 09/22/19 03:40 Non-Formulary Medication ( See Comment Field Below ) REMOVE LIDODERM PATCH DAILY XX 09/15/19 09:00 09/26/19 09:53 Oxycodone/ Acetaminophen (Percocet 5mg/ 325mg Tablet) 1 tab Q6HP PRN PO MILD/MODERATE PAIN (PS 1-7) 09/21/19 16:00 09/25/19 00:42 Oxycodone/ Acetaminophen (Percocet 5mg/ 325mg Tablet) 2 tab Q6HP PRN PO SEVERE PAIN (PS 8-10) 09/21/19 16:00 Polyethylene Glycol (Miralax) 1 pkt DAILYPRN PRN PO CONSTIPATION 09/26/19 10:45 09/26/19 11:00 Quetiapine Fumarate (SEROquel XR) 200 mg QHS PO 09/15/19 22:00 09/15/19 21:50 DC Quetiapine Fumarate (SEROquel XR) 200 mg QHS PRN PO Agitation 09/15/19 22:00 09/15/19 22:52 DC Quetiapine Fumarate (SEROquel) 12.5 mg DAILY PRN PO agitation 09/16/19 09:00 Quetiapine Fumarate (SEROquel) 12.5 mg DAILY@20 PO 09/16/19 20:00 09/15/19 23:00 DC Quetiapine Fumarate (SEROquel) 12.5 mg QHS PO 09/16/19 21:00 09/15/19 23:01 DC Quetiapine Fumarate (SEROquel) 12.5 mg QHS PRN PO agitation 09/15/19 23:00 Ramelteon (Rozerem) 8 mg QHS PO 09/14/19 20:30 09/25/19 20:04 Terazosin HCl (Hytrin) 10 mg QHS PO 09/14/19 21:00 09/25/19 20:05 Allergies Coded Allergies: No Known Allergies (Unverified , 08/01/13) Sravani Denton MD Sep 26, 2019 16:26
[2019-09-26] MEDS: LIDOCAINE 5% (LIDODERM) PATCH TD SCH (21:12)
[2019-09-26] MEDS: TERAZOSIN 5 MG CAP PO SCH (21:12)
[2019-09-26] MEDS: RAMELTEON 8 MG TAB (ROZEREM) PO SCH (21:12)
[2019-09-26 22:00] VITALS: BP 128/64
[2019-09-27 06:00] VITALS: BP 130/69
[2019-09-27 07:15] LABS: ALBUMIN 2.8 GM/DL (3.2-5.2); ALT/SGPT 28 U/L (12-78); BILIRUBIN,TOTAL 0.7 MG/DL (0.2-1.0); BLOOD UREA NITROGEN 26 MG/DL (7-18); CALCIUM LEVEL 7.8 MG/DL (8.8-10.2); CARBON DIOXIDE LEVEL 27 MEQ/L (21-32); CHLORIDE LEVEL 113 MEQ/L (98-107); CREATININE FOR GFR 1.08 MG/DL (0.70-1.30); GLOMERULAR FILTRATION RATE > 60.0 (>35); GLUCOSE, FASTING 85 MG/DL (70-100); SODIUM LEVEL 144 MEQ/L (136-145); TOTAL PROTEIN 5.5 GM/DL (6.4-8.2)
[2019-09-27] MEDS: **NOTE PATIENT COMMENT** MISC XX SCH (09:00)
[2019-09-27] MEDS: DOCUSATE SODIUM 100 MG CAP PO SCH ×2 (10:13→20:03)
[2019-09-27] MEDS: CYANOCOBALAMIN 500 MCG TAB PO SCH (10:13)
--- NOTE | 2019-09-27 18:47 | IPNPDOC ---
Date Seen The patient was seen on 09/27/19. Progress Note SUBJECTIVE: No acute complaints overnight. Wound gram stain neg, culture pending. Patient denies foot pain, chest pain, n/v/d, shortness of breath. OBJECTIVE: VITAL SIGNS: Please see below GEN: Slim build / well developed/ NAD INTEGUMENT: not flushed/ not jaundice HEENT: NCAT CVS: bradycardic with regular rhythm. NMRG/ radial pulses intact / no lower extremity edema LUNGS: lungs are clear to auscultation bilaterally on room air ABDOMEN: Contour (flat) MSK/EXTREMITIES: range of motion intact in all 4 extremities / requires assistance to stand and walk / tophi affecting multiple joints in upper and lower ext. Left foot 5th digit on has Stage II ulcer, appears clean but suppura tive. No fouls smelling NEURO: CN 2-12 are grossly intact , no focal deficits PSYCH: alert and oriented to person but not place or time/ able to understand and follow simple commands LABORATORY DATA: Please see below. IMAGING: No new imaging ASSESSMENT: Patient is an 84-year-old admitted for pancytopenia likely myelodysplastic syndrome, monitoring of bradycardia and requiring placement in SNF. PLAN: 1. Pancytopenia likely myelodysplastic syndrome. CBC has shown improvement since arrival. Heme/onc not recommending aggressive or palliative measures. Please refer to full consult for more information. Pt will need referral to [place] hematology after discharge, no need for BM bx at this time. F/u CBC bimonthly. 2. Bradycardia, chronic. Asymptomatic. Denies symptoms. No further w/up ne eded. 3. Left foot 5th digit ulcer, Stage II. Clean but suppurative. Gram stain neg, cx pending. Wound care ordered. 4. Vitamin B 12 deficiency. C/w vitamin supplementation. 5. 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 Tylenol, Lidocaine patch. 6. Alzheimer's Dementia, Lewey body dementia, chronic and severe. Worsening. Follows with neurologist. CT head unrevealing. Lives alone but will need placement. 7. Physical deconditioning, weakness. fall risk. PT/OT. 8. CKD 3 - Cr wnl. Careful with nephrotoxic meds. F/u labs daily. 9. BPH - terazosin 10. Gout w Tophi - UA wnl. Stable. 11. Paroxysmal atrial fibrillation. Not on AC at home. 12. DVT px. SCDS. Avoiding AC due to pancytopenia at this time. DISPO: Currently under inpatient status. Requiring SNF placement, case assembler and social work are working on this. VS, I&O, 24H, Fishbone Vital Signs/I&O Vital Signs Date Time Temp Pulse Resp B/P (MAP) Pulse Ox O2 Delivery O2 Flow Rate FiO2 09/27/19 06:00 98.0 55 17 130/69 (89) 99 Room Air I&O- Last 24 Hours up to 6 AM 09/27/19 06:00 Intake Total 600 ml Balance 600 ml Laboratory Data 24H LABS Laboratory Tests 2 09/27/19 06:35: Anion Gap 4L, Glomerular Filtration Rate > 60.0, Calcium Level 7.8L, Total Bilirubin 0.7, Aspartate Amino Transf (AST/SGOT) 10, Alanine Aminotransferase (ALT/SGPT) 28, Alkaline Phosphatase 74, Total Protein 5.5L, Albumin 2.8L, Albumin/Globulin Ratio 1.04 CBC/BMP Laboratory Tests 09/27/19 06:35 Microbiology Microbiology 09/26/19 Gram Stain - Final, Resulted 09/26/19 Wound Culture, Resulted Pending Current Medications Current Medications Medications (Trade) Dose Ordered Sig/Elias Route PRN Reason Start Time Stop Time Status Last Admin Dose Admin Acetaminophen (Tylenol Tab) 650 mg Q4H PRN PO PAIN OR FEVER 09/14/19 19:30 09/14/19 20:19 DC Acetaminophen (Tylenol Tab) 1,300 mg Q8H PO 09/14/19 22:00 09/21/19 15:58 DC 09/20/19 15:04 Al Hydrox/Mg Hydrox/Simethicone (Mylanta) 30 ml DAILY PRN PO DYSPEPSIA 09/14/19 19:30 Aspirin (Ecotrin) 81 mg DAILY PO 09/15/19 09:00 09/15/19 06:48 DC Atropine Sulfate (Atropine Sulfate) 0.5 mg Q1HP PRN IV sustained HR <30 w symptoms 09/14/19 20:45 Hold Cyanocobalamin (Vitamin B12) 1,000 mcg DAILY PO 09/25/19 09:00 09/27/19 10:13 Docusate Sodium (Colace) 100 mg BID PO 09/26/19 09:00 09/27/19 10:13 Home Med (Med Rec Complete!) ASDIRECTED XX 09/14/19 19:30 09/14/19 19:31 DC Lidocaine (Lidoderm Patch) 1 patch QHS TD 09/14/19 21:00 09/26/19 21:12 Lorazepam (Ativan) 1 mg STAT STAT IM 09/15/19 21:44 09/15/19 21:45 DC 09/15/19 22:07 Lorazepam (Ativan) 1 mg STAT STAT IM 09/22/19 03:31 09/22/19 03:34 DC 09/22/19 03:40 Non-Formulary Medication ( See Comment Field Below ) REMOVE LIDODERM PATCH DAILY XX 09/15/19 09:00 09/27/19 09:00 Oxycodone/ Acetaminophen (Percocet 5mg/ 325mg Tablet) 1 tab Q6HP PRN PO MILD/MODERATE PAIN (PS 1-7) 09/21/19 16:00 09/25/19 00:42 Oxycodone/ Acetaminophen (Percocet 5mg/ 325mg Tablet) 2 tab Q6HP PRN PO SEVERE PAIN (PS 8-10) 09/21/19 16:00 Polyethylene Glycol (Miralax) 1 pkt DAILYPRN PRN PO CONSTIPATION 09/26/19 10:45 09/26/19 11:00 Quetiapine Fumarate (SEROquel XR) 200 mg QHS PO 09/15/19 22:00 09/15/19 21:50 DC Quetiapine Fumarate (SEROquel XR) 200 mg QHS PRN PO Agitation 09/15/19 22:00 09/15/19 22:52 DC Quetiapine Fumarate (SEROquel) 12.5 mg DAILY PRN PO agitation 09/16/19 09:00 Quetiapine Fumarate (SEROquel) 12.5 mg DAILY@20 PO 09/16/19 20:00 09/15/19 23:00 DC Quetiapine Fumarate (SEROquel) 12.5 mg QHS PO 09/16/19 21:00 09/15/19 23:01 DC Quetiapine Fumarate (SEROquel) 12.5 mg QHS PRN PO agitation 09/15/19 23:00 Ramelteon (Rozerem) 8 mg QHS PO 09/14/19 20:30 09/26/19 21:12 Terazosin HCl (Hytrin) 10 mg QHS PO 09/14/19 21:00 09/26/19 21:12 Allergies Coded Allergies: No Known Allergies (Unverified , 08/01/13) Sravani Denton MD Sep 27, 2019 18:47
[2019-09-27] MEDS: LIDOCAINE 5% (LIDODERM) PATCH TD SCH (20:04)
[2019-09-27] MEDS: RAMELTEON 8 MG TAB (ROZEREM) PO SCH (20:04)
[2019-09-27] MEDS: TERAZOSIN 5 MG CAP PO SCH (20:04)
[2019-09-28 06:00] VITALS: BP 133/67
[2019-09-28 06:40] LABS: BASO % 0.5 % (0.0-1.0); EOS # 0.2 10^3/uL (0.0-0.5); EOS % 4.3 % (0.0-3.0); HEMATOCRIT 24.8 % (42.0-52.0); HEMOGLOBIN 8.2 g/dl (13.5-17.5); LYMPH # 0.8 10^3/uL (1.5-5.0); MEAN CORPUSCULAR HEMOGLOBIN 32.9 pg (27.0-33.0); MEAN CORPUSCULAR HGB CONC 33.1 g/dl (32.0-36.5); MEAN CORPUSCULAR VOLUME 99.6 fl (80.0-96.0); MONO # 0.4 10^3/uL (0.0-0.8); MONO % 10.5 % (0.0-5.0); NEUTROPHILS # 2.6 10^3/uL (1.5-8.5); NEUTROPHILS % 65.4 % (36.0-66.0); RED BLOOD COUNT 2.49 10^6/uL (4.30-6.10)
[2019-09-28 06:43] LABS: PLATELET COUNT, AUTOMATED 64 10^3/uL (150-450)
[2019-09-28 07:05] LABS: ALBUMIN 2.9 GM/DL (3.2-5.2); ALT/SGPT 25 U/L (12-78); BILIRUBIN,TOTAL 0.8 MG/DL (0.2-1.0); BLOOD UREA NITROGEN 24 MG/DL (7-18); CALCIUM LEVEL 7.9 MG/DL (8.8-10.2); CARBON DIOXIDE LEVEL 26 MEQ/L (21-32); CHLORIDE LEVEL 112 MEQ/L (98-107); CREATININE FOR GFR 1.17 MG/DL (0.70-1.30); GLOMERULAR FILTRATION RATE > 60.0 (>35); GLUCOSE, FASTING 86 MG/DL (70-100); POTASSIUM SERUM 4.3 MEQ/L (3.5-5.1); SODIUM LEVEL 143 MEQ/L (136-145); TOTAL PROTEIN 5.4 GM/DL (6.4-8.2)
[2019-09-28] MEDS: CEPHALEXIN 500 MG CAP PO SCH ×2 (08:36→21:36)
[2019-09-28] MEDS: DOCUSATE SODIUM 100 MG CAP PO SCH ×2 (08:36→21:36)
[2019-09-28] MEDS: CYANOCOBALAMIN 500 MCG TAB PO SCH (08:36)
[2019-09-28] MEDS: **NOTE PATIENT COMMENT** MISC XX SCH (08:36)
--- NOTE | 2019-09-28 15:52 | IPNPDOC ---
Date Seen The patient was seen on 09/28/19. Progress Note SUBJECTIVE: No acute complaints overnight. Wound cx growing staph species coag neg, sensitive to oxacillin, keflex. WBC wnl, afebrile. Patient denies foot pain, chest pain, n/v/d, shortness of breath. OBJECTIVE: VITAL SIGNS: Please see below GEN: Slim build / well developed/ NAD INTEGUMENT: not flushed/ not jaundice HEENT: NCAT CVS: bradycardic with regular rhythm. NMRG/ radial pulses intact / no lower extremity edema LUNGS: lungs are clear to auscultation bilaterally on room air ABDOMEN: Contour (flat) MSK/EXTREMITIES: range of motion intact in all 4 extremities / requires as sistance to stand and walk / tophi affecting multiple joints in upper and lower ext. Left foot 5th digit on has Stage II ulcer, appears clean but suppurative. No fouls smelling NEURO: CN 2-12 are grossly intact , no focal deficits PSYCH: alert and oriented to person but not place or time/ able to understand and follow simple commands LABORATORY DATA: Please see below. IMAGING: No new imaging ASSESSMENT: Patient is an 84-year-old admitted for infected left foot ulcer, pancytopenia likely myelodysplastic syndrome, monitoring of bradycardia and requiring placement in SNF. PLAN: 1. Left foot 5th digit infection/ulcer, Stage II. WBC wnl, afebrile. Wound cx shows staph sp. coag neg, sensitive to oxacillin/keflex. Started on Keflex 500 mg PO Q12 hrs x 7 days. Monitor for improvement. Wound care ordered. 2. Pancytopenia likely myelodysplastic syndrome. Heme/onc not recommending aggre ssive or palliative measures. Please refer to full consult for more information. Pt will need referral to [place] hematology after discharge, no need for BM bx at this time. F/u CBC bimonthly. 3. Bradycardia, chronic. Asymptomatic. Denies symptoms. No further w/up needed. 4. Vitamin B 12 deficiency. C/w vitamin supplementation. 5. 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 Tylenol, Lidocaine patch. 6. Alzheimer's Dementia, Lewey body dementia, chronic and severe. Worsening. Follows with neurologist. CT head unrevealing. Lives alone but will need placement. 7. Physical deconditioning, weakness. fall risk. PT/OT. 8. CKD 3 - Cr wnl. Careful with nephrotoxic meds. F/u labs daily. 9. BPH - terazosin 10. Gout w Tophi - UA wnl. Stable. 11. Paroxysmal atrial fibrillation. Not on AC at home. 12. DVT px. SCDS. Avoiding AC due to pancytopenia at this time. DISPO: Currently under inpatient status. Requiring SNF placement, business case analyst and social work are working on this. VS, I&O, 24H, Fishbone Vital Signs/I&O Vital Signs Date Time Temp Pulse Resp B/P (MAP) Pulse Ox O2 Delivery O2 Flow Rate FiO2 09/28/19 06:00 97.8 48 17 133/67 (89) 96 Room Air I&O- Last 24 Hours up to 6 AM 09/28/19 06:00 Intake Total 2486 ml Output Total 0 ml Balance 2486 ml Laboratory Data 24H LABS Laboratory Tests 2 09/28/19 06:22: Immature Granulocyte % (Auto) 0.3, Neutrophils (%) (Auto) 65.4, Lymphocytes (%) (Auto) 19.0L, Monocytes (%) (Auto) 10.5H, Eosinophils (%) (Auto) 4.3H, Basophils (%) (Auto) 0.5, Neutrophils # (Auto) 2.6, Lymphocytes # (Auto) 0.8L, Monocytes # (Auto) 0.4, Eosinophils # (Auto) 0.2, Basophils # (Auto) 0.0, Nucleated Red Blood Cells % (auto) 0.0, Immature Platelet Fraction 9.8, Anion Gap 5L, Glomerular Filtration Rate > 60.0, Calcium Level 7.9L, Total Bilirubin 0.8, Aspartate Amino Transf (AST/SGOT) 11, Alanine Aminotransferase (ALT/SGPT) 25, Alkaline Phosphatase 72, Total Protein 5.4L, Albumin 2.9L, Albumin/Globulin Ratio 1.16 CBC/BMP Laboratory Tests 09/28/19 06:22 Microbiology Microbiology 09/26/19 Gram Stain - Final, Complete 09/26/19 Wound Culture - Final, Complete Staphylococcus Sp Coag Neg Current Medications Current Medications Medications (Trade) Dose Ordered Sig/Elias Route PRN Reason Start Time Stop Time Status Last Admin Dose Admin Acetaminophen (Tylenol Tab) 650 mg Q4H PRN PO PAIN OR FEVER 09/14/19 19:30 09/14/19 20:19 DC Acetaminophen (Tylenol Tab) 1,300 mg Q8H PO 09/14/19 22:00 09/21/19 15:58 DC 09/20/19 15:04 Al Hydrox/Mg Hydrox/Simethicone (Mylanta) 30 ml DAILY PRN PO DYSPEPSIA 09/14/19 19:30 Aspirin (Ecotrin) 81 mg DAILY PO 09/15/19 09:00 09/15/19 06:48 DC Atropine Sulfate (Atropine Sulfate) 0.5 mg Q1HP PRN IV sustained HR <30 w symptoms 09/14/19 20:45 Hold Cephalexin Monohydrate (Keflex) 500 mg Q12H PO 09/28/19 09:00 10/05/19 08:59 09/28/19 08:36 Cyanocobalamin (Vitamin B12) 1,000 mcg DAILY PO 09/25/19 09:00 09/28/19 08:36 Docusate Sodium (Colace) 100 mg BID PO 09/26/19 09:00 09/28/19 08:36 Home Med (Med Rec Complete!) ASDIRECTED XX 09/14/19 19:30 09/14/19 19:31 DC Lidocaine (Lidoderm Patch) 1 patch QHS TD 09/14/19 21:00 09/27/19 20:04 Lorazepam (Ativan) 1 mg STAT STAT IM 09/15/19 21:44 09/15/19 21:45 DC 09/15/19 22:07 Lorazepam (Ativan) 1 mg STAT STAT IM 09/22/19 03:31 09/22/19 03:34 DC 09/22/19 03:40 Non-Formulary Medication ( See Comment Field Below ) REMOVE LIDODERM PATCH DAILY XX 09/15/19 09:00 09/28/19 08:36 Oxycodone/ Acetaminophen (Percocet 5mg/ 325mg Tablet) 1 tab Q6HP PRN PO MILD/MODERATE PAIN (PS 1-7) 09/21/19 16:00 09/25/19 00:42 Oxycodone/ Acetaminophen (Percocet 5mg/ 325mg Tablet) 2 tab Q6HP PRN PO SEVERE PAIN (PS 8-10) 09/21/19 16:00 Polyethylene Glycol (Miralax) 1 pkt DAILYPRN PRN PO CONSTIPATION 09/26/19 10:45 09/26/19 11:00 Quetiapine Fumarate (SEROquel XR) 200 mg QHS PO 09/15/19 22:00 09/15/19 21:50 DC Quetiapine Fumarate (SEROquel XR) 200 mg QHS PRN PO Agitation 09/15/19 22:00 09/15/19 22:52 DC Quetiapine Fumarate (SEROquel) 12.5 mg DAILY PRN PO agitation 09/16/19 09:00 Quetiapine Fumarate (SEROquel) 12.5 mg DAILY@20 PO 09/16/19 20:00 09/15/19 23:00 DC Quetiapine Fumarate (SEROquel) 12.5 mg QHS PO 09/16/19 21:00 09/15/19 23:01 DC Quetiapine Fumarate (SEROquel) 12.5 mg QHS PRN PO agitation 09/15/19 23:00 Ramelteon (Rozerem) 8 mg QHS PO 09/14/19 20:30 09/27/19 20:04 Terazosin HCl (Hytrin) 10 mg QHS PO 09/14/19 21:00 09/27/19 20:04 Allergies Coded Allergies: No Known Allergies (Unverified , 08/01/13) Sravani Denton MD Sep 28, 2019 15:52
[2019-09-28] MEDS: LIDOCAINE 5% (LIDODERM) PATCH TD SCH (21:36)
[2019-09-28] MEDS: TERAZOSIN 5 MG CAP PO SCH (21:36)
[2019-09-28] MEDS: RAMELTEON 8 MG TAB (ROZEREM) PO SCH (21:36)
[2019-09-29 06:00] VITALS: BP 130/63
[2019-09-29 06:45] LABS: BASO % 0.7 % (0.0-1.0); EOS # 0.2 10^3/uL (0.0-0.5); HEMATOCRIT 24.7 % (42.0-52.0); HEMOGLOBIN 8.1 g/dl (13.5-17.5); LYMPH # 0.8 10^3/uL (1.5-5.0); LYMPH % 18.2 % (24.0-44.0); MEAN CORPUSCULAR HEMOGLOBIN 32.9 pg (27.0-33.0); MEAN CORPUSCULAR HGB CONC 32.8 g/dl (32.0-36.5); MEAN CORPUSCULAR VOLUME 100.4 fl (80.0-96.0); MONO # 0.5 10^3/uL (0.0-0.8); MONO % 10.3 % (0.0-5.0); NEUTROPHILS % 66.4 % (36.0-66.0); PLATELET COUNT, AUTOMATED 63 10^3/uL (150-450); RED BLOOD COUNT 2.46 10^6/uL (4.30-6.10); WHITE BLOOD COUNT 4.6 10^3/uL (4.0-10.0)
[2019-09-29 07:07] LABS: ALT/SGPT 28 U/L (12-78); BILIRUBIN,TOTAL 0.6 MG/DL (0.2-1.0); BLOOD UREA NITROGEN 24 MG/DL (7-18); CALCIUM LEVEL 7.7 MG/DL (8.8-10.2); CARBON DIOXIDE LEVEL 27 MEQ/L (21-32); CHLORIDE LEVEL 110 MEQ/L (98-107); CREATININE FOR GFR 1.11 MG/DL (0.70-1.30); GLOMERULAR FILTRATION RATE > 60.0 (>35); GLUCOSE, FASTING 85 MG/DL (70-100); POTASSIUM SERUM 4.1 MEQ/L (3.5-5.1); SODIUM LEVEL 143 MEQ/L (136-145); TOTAL PROTEIN 5.5 GM/DL (6.4-8.2)
[2019-09-29] MEDS: CYANOCOBALAMIN 500 MCG TAB PO SCH (08:29)
[2019-09-29] MEDS: DOCUSATE SODIUM 100 MG CAP PO SCH ×2 (08:29→20:17)
[2019-09-29] MEDS: CEPHALEXIN 500 MG CAP PO SCH ×2 (08:29→20:18)
[2019-09-29] MEDS: **NOTE PATIENT COMMENT** MISC XX SCH (08:30)
--- NOTE | 2019-09-29 15:57 | IPNPDOC ---
Date Seen The patient was seen on 09/29/19. Progress Note SUBJECTIVE: No acute complaints overnight. Patient denies foot pain, chest pain, n/v/d, shortness of breath. OBJECTIVE: VITAL SIGNS: Please see below GEN: Slim build / well developed/ NAD INTEGUMENT: not flushed/ not jaundice HEENT: NCAT CVS: bradycardic with regular rhythm. NMRG/ radial pulses intact / no lower extremity edema LUNGS: lungs are clear to auscultation bilaterally on room air ABDOMEN: Contour (flat) MSK/EXTREMITIES: range of motion intact in all 4 extremities / requires assistance to stand and walk / tophi affecting multiple joints in upper and lower ext. Left foot 5th digit on has Stage II ulcer, appears clean. No fouls smelling NEURO: CN 2-12 are grossly intact , no focal deficits PSYCH: alert and oriented to person but not place or time/ able to understand and follow simple commands LABORATORY DATA: Please see below. IMAGING: No new imaging ASSESSMENT: Patient is an 84-year-old admitted for infected left foot ulcer, pancytopenia likely myelodysplastic syndrome, monitoring of bradycardia and requiring placement in SNF. PLAN: 1. Left foot 5th digit infection/ulcer, Stage II. WBC wnl, afebrile. C/w Keflex 500 mg PO Q12 hrs x 7 days (Day 2). Wound care. 2. Pancytopenia likely myelodysplastic syndrome. Heme/onc not recommending aggressive or palliative measures. Please refer to full consult for more information. [facility], no need for BM bx at this time. F/u CBC bimonthly. 3. Bradycardia, chronic. Asymptomatic. Denies symptoms. No further w/up needed. 4. Vitamin B 12 deficiency. C/w vitamin supplementation. 5. 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 Tylenol, Lidocaine patch. 6. Alzheimer's Dementia, Lewey body dementia, chronic and severe. Worsening. Follows with neurologist. CT head unrevealing. Lives alone but will need placement. 7. Physical deconditioning, weakness. fall risk. PT/OT. 8. CKD 3 - Cr wnl. Careful with nephrotoxic meds. F/u labs daily. 9. BPH - terazosin 10. Gout w Tophi - UA wnl. Stable. 11. Paroxysmal atrial fibrillation. Not on AC at home. 12. DVT px. SCDS. Avoiding AC due to pancytopenia at this time. DISPOSITION: Currently awaiting placement to SNF. Awaiting Medicaid application to be completed. VS, I&O, 24H, [facility] Vital Signs/I&O Vital Signs Date Time Temp Pulse Resp B/P (MAP) Pulse Ox O2 Delivery O2 Flow Rate FiO2 09/29/19 06:00 97.3 52 17 130/63 (85) 97 Room Air I&O- Last 24 Hours up to 6 AM 09/29/19 06:00 Intake Total 2076 ml Output Total 0 ml Balance 2076 ml Laboratory Data 24H LABS Laboratory Tests 2 09/29/19 06:11: Immature Granulocyte % (Auto) 0.4, Neutrophils (%) (Auto) 66.4H, Lymphocytes (%) (Auto) 18.2L, Monocytes (%) (Auto) 10.3H, Eosinophils (%) (Auto) 4.0H, Basophils (%) (Auto) 0.7, Neutrophils # (Auto) 3.0, Lymphocytes # (Auto) 0.8L, Monocytes # (Auto) 0.5, Eosinophils # (Auto) 0.2, Basophils # (Auto) 0.0, Nucleated Red Blood Cells % (auto) 0.0, Anion Gap 6L, Glomerular Filtration Rate > 60.0, Calcium Level 7.7L, Total Bilirubin 0.6, Aspartate Amino Transf (AST/SGOT) 8, Alanine Aminotransferase (ALT/SGPT) 28, Alkaline Phosphatase 72, Total Protein 5.5L, Albumin 3.0L, Albumin/Globulin Ratio 1.20 CBC/BMP Laboratory Tests 09/29/19 06:11 Microbiology Microbiology 09/26/19 Gram Stain - Final, Complete 09/26/19 Wound Culture - Final, Complete Staphylococcus Sp Coag Neg Current Medications Current Medications Medications (Trade) Dose Ordered Sig/Elias Route PRN Reason Start Time Stop Time Status Last Admin Dose Admin Acetaminophen (Tylenol Tab) 650 mg Q4H PRN PO PAIN OR FEVER 09/14/19 19:30 09/14/19 20:19 DC Acetaminophen (Tylenol Tab) 1,300 mg Q8H PO 09/14/19 22:00 09/21/19 15:58 DC 09/20/19 15:04 Al Hydrox/Mg Hydrox/Simethicone (Mylanta) 30 ml DAILY PRN PO DYSPEPSIA 09/14/19 19:30 Aspirin (Ecotrin) 81 mg DAILY PO 09/15/19 09:00 09/15/19 06:48 DC Atropine Sulfate (Atropine Sulfate) 0.5 mg Q1HP PRN IV sustained HR <30 w symptoms 09/14/19 20:45 Hold Cephalexin Monohydrate (Keflex) 500 mg Q12H PO 09/28/19 09:00 10/05/19 08:59 09/29/19 08:29 Cyanocobalamin (Vitamin B12) 1,000 mcg DAILY PO 09/25/19 09:00 09/29/19 08:29 Docusate Sodium (Colace) 100 mg BID PO 09/26/19 09:00 09/29/19 08:29 Home Med (Med Rec Complete!) ASDIRECTED XX 09/14/19 19:30 09/14/19 19:31 DC Lidocaine (Lidoderm Patch) 1 patch QHS TD 09/14/19 21:00 09/28/19 21:36 Lorazepam (Ativan) 1 mg STAT STAT IM 09/15/19 21:44 09/15/19 21:45 DC 09/15/19 22:07 Lorazepam (Ativan) 1 mg STAT STAT IM 09/22/19 03:31 09/22/19 03:34 DC 09/22/19 03:40 Non-Formulary Medication ( See Comment Field Below ) REMOVE LIDODERM PATCH DAILY XX 09/15/19 09:00 09/29/19 08:30 Oxycodone/ Acetaminophen (Percocet 5mg/ 325mg Tablet) 1 tab Q6HP PRN PO MILD/MODERATE PAIN (PS 1-7) 09/21/19 16:00 09/25/19 00:42 Oxycodone/ Acetaminophen (Percocet 5mg/ 325mg Tablet) 2 tab Q6HP PRN PO SEVERE PAIN (PS 8-10) 09/21/19 16:00 Polyethylene Glycol (Miralax) 1 pkt DAILYPRN PRN PO CONSTIPATION 09/26/19 10:45 09/26/19 11:00 Quetiapine Fumarate (SEROquel XR) 200 mg QHS PO 09/15/19 22:00 09/15/19 21:50 DC Quetiapine Fumarate (SEROquel XR) 200 mg QHS PRN PO Agitation 09/15/19 22:00 09/15/19 22:52 DC Quetiapine Fumarate (SEROquel) 12.5 mg DAILY PRN PO agitation 09/16/19 09:00 Quetiapine Fumarate (SEROquel) 12.5 mg DAILY@20 PO 09/16/19 20:00 09/15/19 23:00 DC Quetiapine Fumarate (SEROquel) 12.5 mg QHS PO 09/16/19 21:00 09/15/19 23:01 DC Quetiapine Fumarate (SEROquel) 12.5 mg QHS PRN PO agitation 09/15/19 23:00 Ramelteon (Rozerem) 8 mg QHS PO 09/14/19 20:30 09/28/19 21:36 Terazosin HCl (Hytrin) 10 mg QHS PO 09/14/19 21:00 09/28/19 21:36 Allergies Coded Allergies: No Known Allergies (Unverified , 08/01/13) Sravani Denton MD Sep 29, 2019 15:57
[2019-09-29] MEDS: RAMELTEON 8 MG TAB (ROZEREM) PO SCH (20:18)
[2019-09-29] MEDS: TERAZOSIN 5 MG CAP PO SCH (20:18)
[2019-09-29] MEDS: LIDOCAINE 5% (LIDODERM) PATCH TD SCH (20:21)
[2019-09-30 05:53] LABS: BASO % 0.5 % (0.0-1.0); EOS # 0.2 10^3/uL (0.0-0.5); EOS % 3.5 % (0.0-3.0); HEMATOCRIT 24.4 % (42.0-52.0); HEMOGLOBIN 8.3 g/dl (13.5-17.5); LYMPH # 0.8 10^3/uL (1.5-5.0); LYMPH % 17.7 % (24.0-44.0); MONO # 0.5 10^3/uL (0.0-0.8); MONO % 11.2 % (0.0-5.0); NEUTROPHILS # 2.9 10^3/uL (1.5-8.5); NEUTROPHILS % 66.6 % (36.0-66.0); RED BLOOD COUNT 2.44 10^6/uL (4.30-6.10); WHITE BLOOD COUNT 4.3 10^3/uL (4.0-10.0)
[2019-09-30 05:56] LABS: PLATELET COUNT, AUTOMATED 67 10^3/uL (150-450)
[2019-09-30 06:00] VITALS: BP 138/70
[2019-09-30 06:16] LABS: CALCIUM LEVEL 8.3 MG/DL (8.8-10.2); CREATININE FOR GFR 1.23 MG/DL (0.70-1.30); GLOMERULAR FILTRATION RATE 59.8 (>35); POTASSIUM SERUM 4.1 MEQ/L (3.5-5.1)
[2019-09-30] MEDS: CYANOCOBALAMIN 500 MCG TAB PO SCH (09:00)
[2019-09-30] MEDS: CEPHALEXIN 500 MG CAP PO SCH ×2 (09:00→20:55)
[2019-09-30] MEDS: DOCUSATE SODIUM 100 MG CAP PO SCH ×2 (09:00→20:55)
[2019-09-30] MEDS: MIRALAX *UNIT DOSE* 17GM PACKET PO PRN (09:00)
[2019-09-30] MEDS: PERCOCET 5MG/325MG TAB PO PRN (09:01)
[2019-09-30] MEDS: **NOTE PATIENT COMMENT** MISC XX SCH (09:02)
--- NOTE | 2019-09-30 19:18 | IPNPDOC ---
Date Seen The patient was seen on 09/30/19. Progress Note SUBJECTIVE: No acute complaints overnight. Patient denies foot pain, chest pain, n/v/d, shortness of breath. OBJECTIVE: VITAL SIGNS: Please see below GEN: Slim build / well developed/ NAD INTEGUMENT: not flushed/ not jaundice HEENT: NCAT CVS: bradycardic with regular rhythm. NMRG/ radial pulses intact / no lower extremity edema LUNGS: lungs are clear to auscultation bilaterally on room air ABDOMEN: Contour (flat) MSK/EXTREMITIES: range of motion intact in all 4 extremities / requires assistance to stand and walk / tophi affecting multiple joints in upper and lower ext. Left foot 5th digit on has Stage II ulcer, appears clean. No fouls smelling NEURO: CN 2-12 are grossly intact , no focal deficits PSYCH: alert and oriented to person but not place or time/ able to understand and follow simple commands LABORATORY DATA: Please see below. IMAGING: No new imaging ASSESSMENT: Patient is an 84-year-old admitted for infected left foot ulcer, pancytopenia likely myelodysplastic syndrome, monitoring of bradycardia and requiring placement in SNF. PLAN: 1. Left foot 5th digit infection/ulcer, Stage II. WBC wnl, afebrile. C/w Keflex 500 mg PO Q12 hrs x 7 days (Day 3). Wound care. 2. Pancytopenia likely myelodysplastic syndrome. Heme/onc not recommending aggressive or palliative measures. Please refer to full consult for more information. Pt will need referral to [place] hematology after discharge, no need for BM bx at this time. F/u CBC bimonthly. 3. Bradycardia, chronic. Asymptomatic. Denies symptoms. No further w/up needed. 4. Vitamin B 12 deficiency. C/w vitamin supplementation. 5. 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 Tylenol, Lidocaine patch. 6. Alzheimer's Dementia, Lewey body dementia, chronic and severe. Worsening. Follows with neurologist. CT head unrevealing. Lives alone but will need placement. 7. Physical deconditioning, weakness. fall risk. PT/OT. 8. CKD 3 - Cr wnl. Careful with nephrotoxic meds. F/u labs daily. 9. BPH - terazosin 10. Gout w Tophi - UA wnl. Stable. 11. Paroxysmal atrial fibrillation. Not on AC at home. 12. DVT px. SCDS. Avoiding AC due to pancytopenia at this time. DISPOSITION: Currently awaiting placement to SNF. Awaiting Medicaid application to be completed. VS, I&O, 24H, Fishbone Vital Signs/I&O Vital Signs Date Time Temp Pulse Resp B/P (MAP) Pulse Ox O2 Delivery O2 Flow Rate FiO2 09/30/19 10:00 18 Room Air 09/30/19 06:00 97.6 52 138/70 (92) 99 I&O- Last 24 Hours up to 6 AM 09/30/19 05:59 Intake Total 2346 ml Output Total 0 ml Balance 2346 ml Laboratory Data 24H LABS Laboratory Tests 2 09/30/19 05:33: Immature Granulocyte % (Auto) 0.5, Neutrophils (%) (Auto) 66.6H, Lymphocytes (%) (Auto) 17.7L, Monocytes (%) (Auto) 11.2H, Eosinophils (%) (Auto) 3.5H, Basophils (%) (Auto) 0.5, Neutrophils # (Auto) 2.9, Lymphocytes # (Auto) 0.8L, Monocytes # (Auto) 0.5, Eosinophils # (Auto) 0.2, Basophils # (Auto) 0.0, Nucleated Red Blood Cells % (auto) 0.0, Immature Platelet Fraction 8.8, Anion Gap 4L, Glomerular Filtration Rate 59.8, Calcium Level 8.3L CBC/BMP Laboratory Tests 09/30/19 05:33 Microbiology Microbiology 09/26/19 Gram Stain - Final, Complete 09/26/19 Wound Culture - Final, Complete Staphylococcus Sp Coag Neg Current Medications Current Medications Medications (Trade) Dose Ordered Sig/Elias Route PRN Reason Start Time Stop Time Status Last Admin Dose Admin Acetaminophen (Tylenol Tab) 650 mg Q4H PRN PO PAIN OR FEVER 09/14/19 19:30 09/14/19 20:19 DC Acetaminophen (Tylenol Tab) 1,300 mg Q8H PO 09/14/19 22:00 09/21/19 15:58 DC 09/20/19 15:04 [place] Hydrox/Mg Hydrox/Simethicone (Mylanta) 30 ml DAILY PRN PO DYSPEPSIA 09/14/19 19:30 Aspirin (Ecotrin) 81 mg DAILY PO 09/15/19 09:00 09/15/19 06:48 DC Atropine Sulfate (Atropine Sulfate) 0.5 mg Q1HP PRN IV sustained HR <30 w symptoms 09/14/19 20:45 Hold Cephalexin Monohydrate (Keflex) 500 mg Q12H PO 09/28/19 09:00 10/05/19 08:59 09/30/19 09:00 Cyanocobalamin (Vitamin B12) 1,000 mcg DAILY PO 09/25/19 09:00 09/30/19 09:00 Docusate Sodium (Colace) 100 mg BID PO 09/26/19 09:00 09/30/19 09:00 Home Med (Med Rec Complete!) ASDIRECTED XX 09/14/19 19:30 09/14/19 19:31 DC Lidocaine (Lidoderm Patch) 1 patch QHS TD 09/14/19 21:00 09/29/19 20:21 Lorazepam (Ativan) 1 mg STAT STAT IM 09/15/19 21:44 09/15/19 21:45 DC 09/15/19 22:07 Lorazepam (Ativan) 1 mg STAT STAT IM 09/22/19 03:31 09/22/19 03:34 DC 09/22/19 03:40 Non-Formulary Medication ( See Comment Field Below ) REMOVE LIDODERM PATCH DAILY XX 09/15/19 09:00 09/30/19 09:02 Oxycodone/ Acetaminophen (Percocet 5mg/ 325mg Tablet) 1 tab Q6HP PRN PO MILD/MODERATE PAIN (PS 1-7) 09/21/19 16:00 09/30/19 09:01 Oxycodone/ Acetaminophen (Percocet 5mg/ 325mg Tablet) 2 tab Q6HP PRN PO SEVERE PAIN (PS 8-10) 09/21/19 16:00 Polyethylene Glycol (Miralax) 1 pkt DAILYPRN PRN PO CONSTIPATION 09/26/19 10:45 09/30/19 09:00 Quetiapine Fumarate (SEROquel XR) 200 mg QHS PO 09/15/19 22:00 09/15/19 21:50 DC Quetiapine Fumarate (SEROquel XR) 200 mg QHS PRN PO Agitation 09/15/19 22:00 09/15/19 22:52 DC Quetiapine Fumarate (SEROquel) 12.5 mg DAILY PRN PO agitation 09/16/19 09:00 Quetiapine Fumarate (SEROquel) 12.5 mg DAILY@20 PO 09/16/19 20:00 09/15/19 23:00 DC Quetiapine Fumarate (SEROquel) 12.5 mg QHS PO 09/16/19 21:00 09/15/19 23:01 DC Quetiapine Fumarate (SEROquel) 12.5 mg QHS PRN PO agitation 09/15/19 23:00 Ramelteon (Rozerem) 8 mg QHS PO 09/14/19 20:30 09/29/19 20:18 Terazosin HCl (Hytrin) 10 mg QHS PO 09/14/19 21:00 09/29/19 20:18 Allergies Coded Allergies: No Known Allergies (Unverified , 08/01/13) Sravani Denton MD Sep 30, 2019 19:18
[2019-09-30] MEDS: LIDOCAINE 5% (LIDODERM) PATCH TD SCH (20:55)
[2019-09-30] MEDS: RAMELTEON 8 MG TAB (ROZEREM) PO SCH (20:55)
[2019-09-30] MEDS: TERAZOSIN 5 MG CAP PO SCH (21:13)
[2019-10-01 05:56] LABS: BASO % 0.5 % (0.0-1.0); EOS # 0.2 10^3/uL (0.0-0.5); HEMATOCRIT 23.9 % (42.0-52.0); HEMOGLOBIN 7.9 g/dl (13.5-17.5); LYMPH # 0.9 10^3/uL (1.5-5.0); LYMPH % 23.4 % (24.0-44.0); MEAN CORPUSCULAR HEMOGLOBIN 33.3 pg (27.0-33.0); MEAN CORPUSCULAR HGB CONC 33.1 g/dl (32.0-36.5); MEAN CORPUSCULAR VOLUME 100.8 fl (80.0-96.0); MONO # 0.5 10^3/uL (0.0-0.8); MONO % 12.1 % (0.0-5.0); NEUTROPHILS # 2.2 10^3/uL (1.5-8.5); NEUTROPHILS % 58.5 % (36.0-66.0); RED BLOOD COUNT 2.37 10^6/uL (4.30-6.10); WHITE BLOOD COUNT 3.8 10^3/uL (4.0-10.0)
[2019-10-01 06:00] VITALS: BP 124/69
[2019-10-01 06:13] LABS: BLOOD UREA NITROGEN 25 MG/DL (7-18); CALCIUM LEVEL 7.6 MG/DL (8.8-10.2); CARBON DIOXIDE LEVEL 27 MEQ/L (21-32); CHLORIDE LEVEL 113 MEQ/L (98-107); GLOMERULAR FILTRATION RATE > 60.0 (>35); GLUCOSE, FASTING 81 MG/DL (70-100); POTASSIUM SERUM 4.2 MEQ/L (3.5-5.1); SODIUM LEVEL 145 MEQ/L (136-145)
[2019-10-01 06:16] LABS: PLATELET COUNT, AUTOMATED 56 10^3/uL (150-450)
[2019-10-01] MEDS: CEPHALEXIN 500 MG CAP PO SCH ×2 (08:58→21:29)
[2019-10-01] MEDS: DOCUSATE SODIUM 100 MG CAP PO SCH ×2 (08:58→21:29)
[2019-10-01] MEDS: CYANOCOBALAMIN 500 MCG TAB PO SCH (08:58)
[2019-10-01] MEDS: **NOTE PATIENT COMMENT** MISC XX SCH (09:00)
--- NOTE | 2019-10-01 13:21 | IPNPDOC ---
Subjective Date Seen The patient was seen on 10/01/19. Subjective Chief Complaint/HPI Patient comfortable in no distress. Offers no complaints, watching cartoons while lying down in his bed General: Denies: ROS Unobtainable, Chills, Night Sweats, Fatigue, Malaise, Normal Appetite, Other Symptoms Constitutional: Denies: Chills, Fever, Malaise, Night Sweats, Weakness, Fatigue, Weight Loss, Lethargy, Other Skin: Denies: Rash, Lesions, Jaundice, Bruising, Itching, Dry, Breakdown, Nail Changes, Other Pulmonary: Denies: Dyspnea, Cough, Pleuritic Chest Pain, Other Symptoms Cardiovascular: Denies: Chest Pain, Palpitations, Orthopnea, Paroxysmal Noc. Dyspnea, Edema, Lt Headedness, Other Symptoms Gastrointestinal: Denies: Nausea, Vomiting, Abdominal Pain, Diarrhea, Constipation, Melena, Hematochezia, Other Symptoms Musculoskeletal: Denies: Neck Pain, Back Pain, Shoulder Pain, Arm Pain, Hand Pain, Leg Pain, Foot Pain, Joint Pain, Muscle Pain, Spasms, Other Symptoms Neurological: Denies: Weakness, Numbness, Incoordination, Change in speech, Confusion, Seizures, Other Symptoms Objective Physical Examination General Exam: Positive: Alert, Cooperative ENT Exam: Positive: Atraumatic, Mucous membr. moist/pink Chest Exam: Positive: Clear to auscultation, Normal air movement Heart Exam: Positive: Rate Normal, Normal S1, Normal S2 Abdomen Exam: Positive: Normal bowel sounds Extremity Exam: Positive: Normal pulses Skin Exam: Positive: Nl turgor and temperature Neuro Exam: Positive: Strength at 5/5 X4 ext, Cranial Nerves 3-12 NL Psych Exam: Positive: Mood NL, Oriented x 3 Assessment /Plan Problems (1) Pancytopenia Status: Chronic Problem Text: Pancytopenia likely myelodysplastic syndrome. Heme/onc not recommending aggressive or palliative measures. Monitor hemoglobin and hematocrit and platelets and transfuse as needed Pt will need referral to [place] hematology after discharge, no need for BM bx at this time. F/u CBC bimonthly. , Hemoglobin is 7.9, hematocrit 23.9, platelets of 56,000 (2) Bradycardia Status: Chronic Problem Text: Asymptomatic sinus bradycardia, most likely chronic in nature , No further workup or monitoring needed (3) Dementia Status: Chronic Problem Text: She is comfortable in no distress, pleasant at the present time, not agitated Discussed with patient's sister, Sandra last night over the phone and she agrees with placement of patient to facility with dementia unit as patient lives by himself Discussed with case management and social work today and they will start looking into placement of patient to appropriate facility Plan/VTE VTE Prophylaxis Ordered?: Yes VS, I&O, 24H, Fishbone Vital Signs/I&O Vital Signs Date Time Temp Pulse Resp B/P (MAP) Pulse Ox O2 Delivery O2 Flow Rate FiO2 10/01/19 06:00 97.6 57 18 124/69 (87) Room Air 09/30/19 06:00 99 I&O- Last 24 Hours up to 6 AM 10/01/19 06:00 Intake Total 797 ml Output Total 0 ml Balance 797 ml Laboratory Data 24H LABS Laboratory Tests 2 10/01/19 05:38: Immature Granulocyte % (Auto) 0.5, Neutrophils (%) (Auto) 58.5, Lymphocytes (%) (Auto) 23.4L, Monocytes (%) (Auto) 12.1H, Eosinophils (%) (Auto) 5.0H, Basophils (%) (Auto) 0.5, Neutrophils # (Auto) 2.2, Lymphocytes # (Auto) 0.9L, Monocytes # (Auto) 0.5, Eosinophils # (Auto) 0.2, Basophils # (Auto) 0.0, Nucleated Red Blood Cells % (auto) 0.5H, Immature Platelet Fraction 8.9, Anion Gap 5L, Glomerular Filtration Rate > 60.0, Calcium Level 7.6L CBC/BMP Laboratory Tests 10/01/19 05:38 Microbiology Microbiology 09/26/19 Gram Stain - Final, Complete 09/26/19 Wound Culture - Final, Complete Staphylococcus Sp Coag YANNA Mandel MD Oct 01, 2019 13:21
[2019-10-01] MEDS: RAMELTEON 8 MG TAB (ROZEREM) PO SCH (21:29)
[2019-10-01] MEDS: LIDOCAINE 5% (LIDODERM) PATCH TD SCH (21:29)
[2019-10-01] MEDS: TERAZOSIN 5 MG CAP PO SCH (21:30)
[2019-10-02 06:00] VITALS: BP 130/71
[2019-10-02 06:32] LABS: BLOOD UREA NITROGEN 27 MG/DL (7-18); CALCIUM LEVEL 7.5 MG/DL (8.8-10.2); CARBON DIOXIDE LEVEL 28 MEQ/L (21-32); CHLORIDE LEVEL 112 MEQ/L (98-107); CREATININE FOR GFR 1.12 MG/DL (0.70-1.30); GLOMERULAR FILTRATION RATE > 60.0 (>35); GLUCOSE, FASTING 88 MG/DL (70-100); POTASSIUM SERUM 4.1 MEQ/L (3.5-5.1); SODIUM LEVEL 143 MEQ/L (136-145)
[2019-10-02] MEDS: CEPHALEXIN 500 MG CAP PO SCH ×2 (09:04→20:20)
[2019-10-02] MEDS: CYANOCOBALAMIN 500 MCG TAB PO SCH (09:04)
[2019-10-02] MEDS: **NOTE PATIENT COMMENT** MISC XX SCH (09:05)
[2019-10-02] MEDS: DOCUSATE SODIUM 100 MG CAP PO SCH ×2 (09:05→20:20)
--- NOTE | 2019-10-02 09:47 | IPNPDOC ---
Date Seen The patient was seen on 10/02/19. Progress Note Hematology Hematology diagnosis: Clinical a consistent with an underlying primary myelodysplastic syndrome causing chronic pancytopenia. Currently red blood cell transfusion dependent: Estimated 2-4 units per month Being treated for infected foot ulcer Awaiting a [facility] facility placement Blood counts reviewed over the past week There has been no objective change in his stable pancytopenia Continue with observation and blood transfusion support as needed Patient should have bi-monthly CBCs and expect will require 2-4 units of red blood cells per month. Recommend against any further evaluation regarding his likely underlying myelodysplastic syndrome given his severe dementia Again all treatment would be palliative in nature with the goal of patient to be transfusion independent This carry significant risks Chemotherapy is not appropriate for this individual We'll continue to follow along with you No change on exam Lungs: coarse but clear COR: bradycardic without over murmur. ABD: no palpable masses EXT: no significant edema 15 minutes on care VS, I&O, 24H, Fishbone Vital Signs/I&O Vital Signs Date Time Temp Pulse Resp B/P (MAP) Pulse Ox O2 Delivery O2 Flow Rate FiO2 10/02/19 06:00 98.8 68 17 130/71 (90) 96 Room Air I&O- Last 24 Hours up to 6 AM 10/02/19 06:00 Intake Total 1960 ml Output Total 0 ml Balance 1960 ml Laboratory Data 24H LABS Laboratory Tests 2 10/02/19 05:49: Anion Gap 3L, Glomerular Filtration Rate > 60.0, Calcium Level 7.5L CBC/BMP Laboratory Tests 10/02/19 05:49 Microbiology Microbiology 09/26/19 Gram Stain - Final, Complete 09/26/19 Wound Culture - Final, Complete Staphylococcus Sp Coag Neg SMITA SHANNON MD Oct 02, 2019 09:47
[2019-10-02] MEDS: RAMELTEON 8 MG TAB (ROZEREM) PO SCH (20:20)
[2019-10-02] MEDS: TERAZOSIN 5 MG CAP PO SCH (20:21)
[2019-10-02] MEDS: LIDOCAINE 5% (LIDODERM) PATCH TD SCH (20:21)
[2019-10-03 06:00] VITALS: BP 106/56
[2019-10-03 06:48] LABS: BLOOD UREA NITROGEN 28 MG/DL (7-18); CALCIUM LEVEL 8.1 MG/DL (8.8-10.2); CARBON DIOXIDE LEVEL 26 MEQ/L (21-32); CHLORIDE LEVEL 111 MEQ/L (98-107); CREATININE FOR GFR 1.12 MG/DL (0.70-1.30); GLOMERULAR FILTRATION RATE > 60.0 (>35); GLUCOSE, FASTING 91 MG/DL (70-100); POTASSIUM SERUM 4.1 MEQ/L (3.5-5.1); SODIUM LEVEL 142 MEQ/L (136-145)
[2019-10-03] MEDS: CYANOCOBALAMIN 500 MCG TAB PO SCH (08:25)
[2019-10-03] MEDS: DOCUSATE SODIUM 100 MG CAP PO SCH ×2 (08:25→22:02)
[2019-10-03] MEDS: CEPHALEXIN 500 MG CAP PO SCH ×2 (08:26→22:02)
[2019-10-03] MEDS: PERCOCET 5MG/325MG TAB PO PRN (08:27)
[2019-10-03] MEDS: **NOTE PATIENT COMMENT** MISC XX SCH (08:28)
[2019-10-03] MEDS: RAMELTEON 8 MG TAB (ROZEREM) PO SCH (22:02)
[2019-10-03] MEDS: TERAZOSIN 5 MG CAP PO SCH (22:03)
[2019-10-03] MEDS: LIDOCAINE 5% (LIDODERM) PATCH TD SCH (22:03)
[2019-10-04 06:00] VITALS: BP 116/71
[2019-10-04] MEDS: DOCUSATE SODIUM 100 MG CAP PO SCH ×2 (08:25→20:30)
[2019-10-04] MEDS: PERCOCET 5MG/325MG TAB PO PRN (08:26)
[2019-10-04] MEDS: CYANOCOBALAMIN 500 MCG TAB PO SCH (08:27)
[2019-10-04] MEDS: CEPHALEXIN 500 MG CAP PO SCH ×2 (08:27→20:31)
[2019-10-04] MEDS: **NOTE PATIENT COMMENT** MISC XX SCH (08:27)
[2019-10-04] MEDS: LIDOCAINE 5% (LIDODERM) PATCH TD SCH (20:30)
[2019-10-04] MEDS: RAMELTEON 8 MG TAB (ROZEREM) PO SCH (20:30)
[2019-10-04] MEDS: TERAZOSIN 5 MG CAP PO SCH (20:31)
[2019-10-05] MEDS: PERCOCET 5MG/325MG TAB PO PRN (00:26)
[2019-10-05 06:00] VITALS: BP 116/58
[2019-10-05] MEDS: CYANOCOBALAMIN 500 MCG TAB PO SCH (07:59)
[2019-10-05] MEDS: DOCUSATE SODIUM 100 MG CAP PO SCH ×2 (07:59→20:40)
[2019-10-05] MEDS: **NOTE PATIENT COMMENT** MISC XX SCH (08:00)
--- NOTE | 2019-10-05 11:09 | IPNPDOC ---
Subjective Date Seen The patient was seen on 10/05/19. Subjective Chief Complaint/HPI Patient is comfortable in no distress. Offers no new complaints General: Denies: ROS Unobtainable, Chills, Night Sweats, Fatigue, Malaise, Normal Appetite, Other Symptoms Constitutional: Denies: Chills, Fever, Malaise, Night Sweats, Weakness, Fatigue, Weight Loss, Lethargy, Other Pulmonary: Denies: Dyspnea, Cough, Pleuritic Chest Pain, Other Symptoms Cardiovascular: Denies: Chest Pain, Palpitations, Orthopnea, Paroxysmal Noc. Dyspnea, Edema, Lt Headedness, Other Symptoms Gastrointestinal: Denies: Nausea, Vomiting, Abdominal Pain, Diarrhea, Constipation, Melena, Hematochezia, Other Symptoms Musculoskeletal: Denies: Neck Pain, Back Pain, Shoulder Pain, Arm Pain, Hand Pain, Leg Pain, Foot Pain, Joint Pain, Muscle Pain, Spasms, Other Symptoms Neurological: Denies: Weakness, Numbness, Incoordination, Change in speech, Confusion, Seizures, Other Symptoms Objective Physical Examination ENT Exam: Positive: Atraumatic, Mucous membr. moist/pink Chest Exam: Positive: Clear to auscultation, Normal air movement Heart Exam: Positive: Rate Normal, Normal S1, Normal S2 Abdomen Exam: Positive: Normal bowel sounds Extremity Exam: Positive: Normal pulses Skin Exam: Positive: Nl turgor and temperature Neuro Exam: Positive: Strength at 5/5 X4 ext, Cranial Nerves 3-12 NL Psych Exam: Positive: Mood NL, Oriented x 3 Assessment /Plan Problems (1) Pancytopenia Status: Chronic Problem Text: Pancytopenia likely myelodysplastic syndrome. Heme/onc not re commending aggressive or palliative measures. Monitor hemoglobin and hematocrit and platelets and transfuse as needed Pt will need referral to [place] hematology after discharge, no need for BM bx at this time. F/u CBC bimonthly. , Hemoglobin is 7.9, hematocrit 23.9, platelets of 56,000 Repeat labs on Monday to follow-up all cell lines, even though we are providing only supportive measures (2) Bradycardia Status: Chronic Problem Text: Asymptomatic sinus bradycardia, most likely chronic in nature , No further workup or monitoring needed (3) Dementia Status: Chronic Problem Text: She is comfortable in no distress, pleasant at the present time, not agitated Discussed with patient's sister, Sandra last night over the phone and she agrees with placement of patient to facility with dementia unit as patient lives by himself Discussed with case management and social work today and they will start looking into placement of patient to appropriate facility Plan/VTE VTE Prophylaxis Ordered?: Yes VS, I&O, 24H, Fishbone Vital Signs/I&O Vital Signs Date Time Temp Pulse Resp B/P (MAP) Pulse Ox O2 Delivery O2 Flow Rate FiO2 10/05/19 06:00 97.7 55 96 116/58 (77) Room Air 10/03/19 06:00 97 I&O- Last 24 Hours up to 6 AM 10/05/19 06:00 Intake Total 2547 ml Output Total 0 ml Balance 2547 ml Laboratory Data Microbiology Microbiology 09/26/19 Gram Stain - Final, Complete 09/26/19 Wound Culture - Final, Complete Staphylococcus Sp Coag YANNA Mandel MD October 05, 2019 11:09
[2019-10-05] MEDS: RAMELTEON 8 MG TAB (ROZEREM) PO SCH (20:39)
[2019-10-05] MEDS: LIDOCAINE 5% (LIDODERM) PATCH TD SCH (20:39)
[2019-10-05] MEDS: TERAZOSIN 5 MG CAP PO SCH (20:40)
[2019-10-06 06:00] VITALS: BP 104/67
[2019-10-06] MEDS: CYANOCOBALAMIN 500 MCG TAB PO SCH (09:10)
[2019-10-06] MEDS: **NOTE PATIENT COMMENT** MISC XX SCH (09:10)
[2019-10-06] MEDS: DOCUSATE SODIUM 100 MG CAP PO SCH ×2 (09:10→20:41)
[2019-10-06 14:00] VITALS: BP 118/65
[2019-10-06] MEDS: RAMELTEON 8 MG TAB (ROZEREM) PO SCH (20:41)
[2019-10-06] MEDS: LIDOCAINE 5% (LIDODERM) PATCH TD SCH (20:42)
[2019-10-06] MEDS: TERAZOSIN 5 MG CAP PO SCH (20:42)
[2019-10-07] VITALS (7 sets, daily range): BP systolic 122–144; BP diastolic 58–65
[2019-10-07] MEDS: PERCOCET 5MG/325MG TAB PO PRN ×2 (04:08→22:31)
[2019-10-07 07:32] LABS: HEMATOCRIT 21.7 % (42.0-52.0); HEMOGLOBIN 7.2 g/dl (13.5-17.5); MEAN CORPUSCULAR HEMOGLOBIN 33.6 pg (27.0-33.0); MEAN CORPUSCULAR HGB CONC 33.2 g/dl (32.0-36.5); MEAN CORPUSCULAR VOLUME 101.4 fl (80.0-96.0); RED BLOOD COUNT 2.14 10^6/uL (4.30-6.10); WHITE BLOOD COUNT 4.1 10^3/uL (4.0-10.0)
[2019-10-07 07:33] LABS: PLATELET COUNT, AUTOMATED 61 10^3/uL (150-450)
[2019-10-07] MEDS: **NOTE PATIENT COMMENT** MISC XX SCH (09:12)
[2019-10-07] MEDS: DOCUSATE SODIUM 100 MG CAP PO SCH ×2 (09:12→20:05)
[2019-10-07] MEDS: CYANOCOBALAMIN 500 MCG TAB PO SCH (09:12)
--- NOTE | 2019-10-07 13:05 | IPNPDOC ---
Subjective Date Seen The patient was seen on 10/07/19. Subjective Chief Complaint/HPI Patient is comfortable, no distress. Offers no new complaints General: Denies: ROS Unobtainable, Chills, Night Sweats, Fatigue, Malaise, Normal Appetite, Other Symptoms Constitutional: Denies: Chills, Fever, Malaise, Night Sweats, Weakness, Fatigue, Weight Loss, Lethargy, Other Skin: Denies: Rash, Lesions, Jaundice, Bruising, Itching, Dry, Breakdown, Nail Changes, Other Pulmonary: Denies: Dyspnea, Cough, Pleuritic Chest Pain, Other Symptoms Cardiovascular: Denies: Chest Pain, Palpitations, Orthopnea, Paroxysmal Noc. Dyspnea, Edema, Lt Headedness, Other Symptoms Gastrointestinal: Denies: Nausea, Vomiting, Abdominal Pain, Diarrhea, Constipation, Melena, Hematochezia, Other Symptoms Musculoskeletal: Denies: Neck Pain, Back Pain, Shoulder Pain, Arm Pain, Hand Pain, Leg Pain, Foot Pain, Joint Pain, Muscle Pain, Spasms, Other Symptoms Neurological: Denies: Weakness, Numbness, Incoordination, Change in speech, Confusion, Seizures, Other Symptoms Objective Physical Examination ENT Exam: Positive: Atraumatic, Mucous membr. moist/pink Chest Exam: Positive: Clear to auscultation, Normal air movement Heart Exam: Positive: Rate Normal, Normal S1, Normal S2 Abdomen Exam: Positive: Normal bowel sounds Extremity Exam: Positive: Normal pulses Skin Exam: Positive: Nl turgor and temperature Neuro Exam: Positive: Strength at 5/5 X4 ext, Cranial Nerves 3-12 NL Psych Exam: Positive: Mood NL, Oriented x 3 Assessment /Plan Problems (1) Pancytopenia Status: Chronic Problem Text: Pancytopenia likely myelodysplastic syndrome. Heme/onc not recommending aggressive or palliative measures. Monitor hemoglobin and hematocrit and platelets and transfuse as needed Pt will need referral to [place] hematology after discharge, no need for BM bx at this time. F/u CBC bimonthly. Patient's hemoglobin is 7.2, hematocrit 21.7, platelet count 2 61,000, which is stable with WBC count of 4.1 Patient will require transfusion of 1 unit of PRBC today, blood transfusion consent was obtained. And will be transfused today to raise his hemoglobin hopefully more than 8 Patient awaiting transfer to nursing facility. He is [facility] status (2) Bradycardia Status: Chronic Problem Text: Asymptomatic sinus bradycardia, most likely chronic in nature , No further workup or monitoring needed (3) Dementia Status: Chronic Problem Text: She is comfortable in no distress, pleasant at the present time, not agitated Discussed with patient's sister, Sandra last night over the phone and she agrees with placement of patient to facility with dementia unit as [facility] Discussed with case management and social work today and they will start looking into placement of patient to appropriate facility Plan/VTE VTE Prophylaxis Ordered?: Yes VS, I&O, 24H, Fishbone Vital Signs/I&O Vital Signs Date Time Temp Pulse Resp B/P (MAP) Pulse Ox O2 Delivery O2 Flow Rate FiO2 10/07/19 06:00 98.2 62 18 122/64 (83) 98 Room Air I&O- Last 24 Hours up to 6 AM 10/07/19 06:00 Intake Total 1860 ml Balance 1860 ml Laboratory Data 24H LABS Laboratory Tests 2 10/07/19 07:12: Nucleated Red Blood Cells % (auto) 0.0, Immature Platelet Fraction 8.0 CBC/BMP Laboratory Tests 10/07/19 07:12 YANNA PANTOJA MD October 07, 2019 13:05
[2019-10-07] MEDS: RAMELTEON 8 MG TAB (ROZEREM) PO SCH (20:05)
[2019-10-07] MEDS: LIDOCAINE 5% (LIDODERM) PATCH TD SCH (20:06)
[2019-10-07] MEDS: TERAZOSIN 5 MG CAP PO SCH (20:06)
[2019-10-08 06:00] VITALS: BP 120/63
[2019-10-08 06:39] LABS: HEMATOCRIT 24.6 % (42.0-52.0); HEMOGLOBIN 8.1 g/dl (13.5-17.5); MEAN CORPUSCULAR HEMOGLOBIN 33.2 pg (27.0-33.0); MEAN CORPUSCULAR HGB CONC 32.9 g/dl (32.0-36.5); MEAN CORPUSCULAR VOLUME 100.8 fl (80.0-96.0); RED BLOOD COUNT 2.44 10^6/uL (4.30-6.10); WHITE BLOOD COUNT 3.6 10^3/uL (4.0-10.0)
[2019-10-08 06:41] LABS: PLATELET COUNT, AUTOMATED 63 10^3/uL (150-450)
[2019-10-08 07:10] LABS: BASOPHILS 1 % (0-1); EOSINOPHILS 7 % (0-3); LYMPHOCYTES 36 % (16-44); MONOCYTES 2 % (0-5); NEUTROPHILS 53 % (28-66); PLATELET ESTIMATE DECREASED (NORMAL)
[2019-10-08] MEDS: **NOTE PATIENT COMMENT** MISC XX SCH (09:00)
[2019-10-08 09:12] LABS: BLOOD UREA NITROGEN 28 MG/DL (7-18); CALCIUM LEVEL 7.7 MG/DL (8.8-10.2); CARBON DIOXIDE LEVEL 27 MEQ/L (21-32); CHLORIDE LEVEL 112 MEQ/L (98-107); CREATININE FOR GFR 1.16 MG/DL (0.70-1.30); GLOMERULAR FILTRATION RATE > 60.0 (>35); GLUCOSE, FASTING 84 MG/DL (70-100); POTASSIUM SERUM 4.2 MEQ/L (3.5-5.1); SODIUM LEVEL 144 MEQ/L (136-145)
[2019-10-08] MEDS: CYANOCOBALAMIN 500 MCG TAB PO SCH (10:14)
[2019-10-08] MEDS: DOCUSATE SODIUM 100 MG CAP PO SCH ×2 (10:14→22:20)
[2019-10-08] MEDS: PERCOCET 5MG/325MG TAB PO PRN (10:15)
[2019-10-08 14:00] VITALS: BP 128/54
--- NOTE | 2019-10-08 21:09 | IPNPDOC ---
Date Seen The patient was seen on 10/08/19. Progress Note SUBJECTIVE: No acute complaints overnight. S/p one unit PRBC for H/H 7.07/26. Responded appropriately. Patient denies foot pain, chest pain, n/v/d, shortness of breath. OBJECTIVE: VITAL SIGNS: Please see below GEN: Slim build / well developed/ NAD INTEGUMENT: not flushed/ not jaundice HEENT: NCAT CVS: bradycardic with regular rhythm. NMRG/ radial pulses intact / no lower extremity edema LUNGS: lungs are clear to auscultation bilaterally on room air ABDOMEN: Contour (flat) MSK/EXTREMITIES: range of motion intact in all 4 extremities / requires assistance to stand and walk / tophi affecting multiple joints in upper and lower ext. Left foot 5th digit on has Stage II ulcer, appears clean. No fouls smelling NEURO: CN 2-12 are grossly intact , no focal deficits PSYCH: alert and oriented to person but not place or time/ able to understand and follow simple commands LABORATORY DATA: Please see below. IMAGING: No new imaging ASSESSMENT: Patient is an 84-year-old admitted for pancytopenia likely myelodysplastic syndrome, monitoring of bradycardia and requiring placement in SNF. PLAN: 1. Pancytopenia likely myelodysplastic syndrome. S/p 1 unit PRBC 10/07/19, no acute bleeding. Heme/onc not recommending aggressive or palliative measures, transfuse as needed. Please refer to full consult for more information. Pt will need referral to [place] hematology after discharge, no need for BM bx at this time. F/u CBC bimonthly. 2. Bradycardia, chronic. Asymptomatic. Denies symptoms. No further w/up needed. 3. Vitamin B 12 deficiency. C/w vitamin supplementation. 4. 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 Tylenol, Lidocaine patch. 5. Alzheimer's Dementia, Lewey body dementia, chronic and severe. Worsening. Follows with neurologist. CT head unrevealing. Lives alone but will need placement. 6. Physical deconditioning, weakness. fall risk. PT/OT. 7. CKD 3 - Cr wnl. Careful with nephrotoxic meds. F/u labs daily. 8. BPH - terazosin 9. Gout w Tophi - UA wnl. Stable. 10. Paroxysmal atrial fibrillation. Not on AC at home. 11. DVT px. SCDS. Avoiding AC due to pancytopenia at this time. DISPOSITION: Currently awaiting placement to SNF. Awaiting Medicaid application to be completed. VS, I&O, 24H, Fishbone Vital Signs/I&O Vital Signs Date Time Temp Pulse Resp B/P (MAP) Pulse Ox O2 Delivery O2 Flow Rate FiO2 10/08/19 14:00 96.6 55 15 128/54 (78) 98 Room Air 10/08/19 10:15 98.0 99 I&O- Last 24 Hours up to 6 AM 10/08/19 06:00 Intake Total 2160 ml Balance 2160 ml Laboratory Data 24H LABS Laboratory Tests 2 10/08/19 06:09: Anion Gap 5L, Glomerular Filtration Rate > 60.0, Calcium Level 7.7L 10/08/19 06:16: Neutrophils (%) (Auto) , Nucleated Red Blood Cells % (auto) 0.0, Neutrophils 53, Band Neutrophils 1, Lymphocytes (Manual) 36, Monocytes (Manual) 2, Eosinophils (Manual) 7H, Basophils (Manual) 1, Red Blood Cell Morphology NORMAL, Platelet Estimate DECREASED CBC/BMP Laboratory Tests 10/08/19 06:09 10/08/19 06:16 Current Medications Current Medications Medications (Trade) Dose Ordered Sig/Elias Route PRN Reason Start Time Stop Time Status Last Admin Dose Admin Acetaminophen (Tylenol Tab) 650 mg Q4H PRN PO PAIN OR FEVER 09/14/19 19:30 09/14/19 20:19 DC Acetaminophen (Tylenol Tab) 1,300 mg Q8H PO 09/14/19 22:00 09/21/19 15:58 DC 09/20/19 15:04 [place] Hydrox/Mg Hydrox/Simethicone (Mylanta) 30 ml DAILY PRN PO DYSPEPSIA 09/14/19 19:30 Aspirin (Ecotrin) 81 mg DAILY PO 09/15/19 09:00 09/15/19 06:48 DC Atropine Sulfate (Atropine Sulfate) 0.5 mg Q1HP PRN IV sustained HR <30 w symptoms 09/14/19 20:45 Hold Cephalexin Monohydrate (Keflex) 500 mg Q12H PO 09/28/19 09:00 10/04/19 21:01 DC 10/04/19 20:31 Cyanocobalamin (Vitamin B12) 1,000 mcg DAILY PO 09/25/19 09:00 10/08/19 10:14 Docusate Sodium (Colace) 100 mg BID PO 09/26/19 09:00 10/08/19 10:14 Home Med (Med Rec Complete!) ASDIRECTED XX 09/14/19 19:30 09/14/19 19:31 DC Lidocaine (Lidoderm Patch) 1 patch QHS TD 09/14/19 21:00 10/07/19 20:06 Lorazepam (Ativan) 1 mg STAT STAT IM 09/15/19 21:44 09/15/19 21:45 DC 09/15/19 22:07 Lorazepam (Ativan) 1 mg STAT STAT IM 09/22/19 03:31 09/22/19 03:34 DC 09/22/19 03:40 Non-Formulary Medication ( See Comment Field Below ) REMOVE LIDODERM PATCH DAILY XX 09/15/19 09:00 10/08/19 09:00 Oxycodone/ Acetaminophen (Percocet 5mg/ 325mg Tablet) 1 tab Q6HP PRN PO MILD/MODERATE PAIN (PS 1-7) 09/21/19 16:00 10/08/19 10:15 Oxycodone/ Acetaminophen (Percocet 5mg/ 325mg Tablet) 2 tab Q6HP PRN PO SEVERE PAIN (PS 8-10) 09/21/19 16:00 Polyethylene Glycol (Miralax) 1 pkt DAILYPRN PRN PO CONSTIPATION 09/26/19 10:45 09/30/19 09:00 Quetiapine Fumarate (SEROquel XR) 200 mg QHS PO 09/15/19 22:00 09/15/19 21:50 DC Quetiapine Fumarate (SEROquel XR) 200 mg QHS PRN PO Agitation 09/15/19 22:00 09/15/19 22:52 DC Quetiapine Fumarate (SEROquel) 12.5 mg DAILY PRN PO agitation 09/16/19 09:00 Quetiapine Fumarate (SEROquel) 12.5 mg DAILY@20 PO 09/16/19 20:00 09/15/19 23:00 DC Quetiapine Fumarate (SEROquel) 12.5 mg QHS PO 09/16/19 21:00 09/15/19 23:01 DC Quetiapine Fumarate (SEROquel) 12.5 mg QHS PRN PO agitation 09/15/19 23:00 Ramelteon (Rozerem) 8 mg QHS PO 09/14/19 20:30 10/07/19 20:05 Terazosin HCl (Hytrin) 10 mg QHS PO 09/14/19 21:00 10/07/19 20:06 Allergies Coded Allergies: No Known Allergies (Unverified , 08/01/13) Sravani Denton MD October 08, 2019 21:09
[2019-10-08] MEDS: MIRALAX *UNIT DOSE* 17GM PACKET PO PRN (22:20)
[2019-10-08] MEDS: RAMELTEON 8 MG TAB (ROZEREM) PO SCH (22:20)
[2019-10-08] MEDS: LIDOCAINE 5% (LIDODERM) PATCH TD SCH (22:21)
[2019-10-08] MEDS: TERAZOSIN 5 MG CAP PO SCH (22:22)
[2019-10-09 05:47] LABS: HEMATOCRIT 24.4 % (42.0-52.0); HEMOGLOBIN 8.2 g/dl (13.5-17.5); MEAN CORPUSCULAR HEMOGLOBIN 33.5 pg (27.0-33.0); MEAN CORPUSCULAR HGB CONC 33.6 g/dl (32.0-36.5); MEAN CORPUSCULAR VOLUME 99.6 fl (80.0-96.0); RED BLOOD COUNT 2.45 10^6/uL (4.30-6.10); WHITE BLOOD COUNT 3.5 10^3/uL (4.0-10.0)
[2019-10-09 05:48] LABS: PLATELET COUNT, AUTOMATED 72 10^3/uL (150-450)
[2019-10-09 06:00] VITALS: BP 120/60
[2019-10-09 06:07] LABS: BLOOD UREA NITROGEN 26 MG/DL (7-18); CALCIUM LEVEL 7.7 MG/DL (8.8-10.2); CARBON DIOXIDE LEVEL 27 MEQ/L (21-32); CHLORIDE LEVEL 111 MEQ/L (98-107); CREATININE FOR GFR 1.11 MG/DL (0.70-1.30); GLOMERULAR FILTRATION RATE > 60.0 (>35); GLUCOSE, FASTING 84 MG/DL (70-100); POTASSIUM SERUM 4.4 MEQ/L (3.5-5.1); SODIUM LEVEL 143 MEQ/L (136-145)
[2019-10-09] MEDS: CYANOCOBALAMIN 500 MCG TAB PO SCH (08:49)
[2019-10-09] MEDS: DOCUSATE SODIUM 100 MG CAP PO SCH ×2 (08:49→21:24)
[2019-10-09] MEDS: **NOTE PATIENT COMMENT** MISC XX SCH (09:03)
[2019-10-09] MEDS: MIRALAX *UNIT DOSE* 17GM PACKET PO PRN (18:41)
--- NOTE | 2019-10-09 20:45 | IPNPDOC ---
Date Seen The patient was seen on 10/09/19. Progress Note SUBJECTIVE: No acute complaints overnight. H/H remains stable at 8.2/24. . Patient denies chest pain, n/v/d, shortness of breath. OBJECTIVE: VITAL SIGNS: Please see below GEN: Slim build / well developed/ NAD INTEGUMENT: not flushed/ not jaundice HEENT: NCAT CVS: bradycardic with regular rhythm. NMRG/ radial pulses intact / no lower extremity edema LUNGS: lungs are clear to auscultation bilaterally on room air ABDOMEN: Contour (flat) MSK/EXTREMITIES: range of motion intact in all 4 extremities / requires assistance to stand and walk / tophi affecting multiple joints in upper and lower ext. Left foot 5th digit on has Stage II ulcer, appears clean and well healing. No foul smelling NEURO: CN 2-12 are grossly intact , no focal deficits PSYCH: alert and oriented to person but not place or time/ able to understand and follow commands well LABORATORY DATA: Please see below. IMAGING: No new imaging ASSESSMENT: Patient is an 84-year-old admitted for pancytopenia likely myelodysplastic syndrome, monitoring of bradycardia and requiring placement in SNF. PLAN: 1. Pancytopenia likely myelodysplastic syndrome. H/H stable. Heme/onc not recommending aggressive or palliative measures, transfuse as needed. Please refer to full consult for more information. Pt will need referral to [place] hematology after discharge, no need for BM bx at this time. F/u CBC bimonthly. 2. Bradycardia, chronic. Asymptomatic. Denies symptoms. No further w/up needed. 3. Vitamin B 12 deficiency. C/w vitamin supplementation. 4. 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 Tylenol, Lidocaine patch. 5. Alzheimer's Dementia, Lewey body dementia, chronic and severe. Worsening. Follows with neurologist. CT head unrevealing. Lives alone but will need placement. 6. Physical deconditioning, weakness. fall risk. PT/OT. 7. CKD 3 - Cr wnl. Careful with nephrotoxic meds. F/u labs daily. 8. BPH - terazosin 9. Gout w Tophi - UA wnl. Stable. 10. Paroxysmal atrial fibrillation. Not on AC at home. 11. DVT px. SCDS. Avoiding AC due to pancytopenia at this time. DISPOSITION: Currently awaiting placement to SNF. Awaiting Medicaid application to be completed. VS, I&O, 24H, Fishbone Vital Signs/I&O Vital Signs Date Time Temp Pulse Resp B/P (MAP) Pulse Ox O2 Delivery O2 Flow Rate FiO2 10/09/19 06:00 98.2 52 17 120/60 (80) 96 Room Air 10/08/19 10:15 98.0 99 I&O- Last 24 Hours up to 6 AM 10/09/19 06:00 Intake Total 1376 ml Output Total 0 ml Balance 1376 ml Laboratory Data 24H LABS Laboratory Tests 2 10/09/19 05:29: Nucleated Red Blood Cells % (auto) 0.0, Immature Platelet Fraction 7.9, Anion Gap 5L, Glomerular Filtration Rate > 60.0, Calcium Level 7.7L CBC/BMP Laboratory Tests 10/09/19 05:29 Current Medications Current Medications Medications (Trade) Dose Ordered Sig/Elias Route PRN Reason Start Time Stop Time Status Last Admin Dose Admin Acetaminophen (Tylenol Tab) 650 mg Q4H PRN PO PAIN OR FEVER 09/14/19 19:30 09/14/19 20:19 DC Acetaminophen (Tylenol Tab) 1,300 mg Q8H PO 09/14/19 22:00 09/21/19 15:58 DC 09/20/19 15:04 Al Hydrox/Mg Hydrox/Simethicone (Mylanta) 30 ml DAILY PRN PO DYSPEPSIA 09/14/19 19:30 Aspirin (Ecotrin) 81 mg DAILY PO 09/15/19 09:00 09/15/19 06:48 DC Atropine Sulfate (Atropine Sulfate) 0.5 mg Q1HP PRN IV sustained HR <30 w symptoms 09/14/19 20:45 Hold Cephalexin Monohydrate (Keflex) 500 mg Q12H PO 09/28/19 09:00 10/04/19 21:01 DC 10/04/19 20:31 Cyanocobalamin (Vitamin B12) 1,000 mcg DAILY PO 09/25/19 09:00 10/09/19 08:49 Docusate Sodium (Colace) 100 mg BID PO 09/26/19 09:00 10/09/19 08:49 Home Med (Med Rec Complete!) ASDIRECTED XX 09/14/19 19:30 09/14/19 19:31 DC Lidocaine (Lidoderm Patch) 1 patch QHS TD 09/14/19 21:00 10/08/19 22:21 Lorazepam (Ativan) 1 mg STAT STAT IM 09/15/19 21:44 09/15/19 21:45 DC 09/15/19 22:07 Lorazepam (Ativan) 1 mg STAT STAT IM 09/22/19 03:31 09/22/19 03:34 DC 09/22/19 03:40 Non-Formulary Medication ( See Comment Field Below ) REMOVE LIDODERM PATCH DAILY XX 09/15/19 09:00 10/09/19 09:03 Oxycodone/ Acetaminophen (Percocet 5mg/ 325mg Tablet) 1 tab Q6HP PRN PO MILD/MODERATE PAIN (PS 1-7) 09/21/19 16:00 10/08/19 10:15 Oxycodone/ Acetaminophen (Percocet 5mg/ 325mg Tablet) 2 tab Q6HP PRN PO SEVERE PAIN (PS 8-10) 09/21/19 16:00 Polyethylene Glycol (Miralax) 1 pkt DAILYPRN PRN PO CONSTIPATION 09/26/19 10:45 10/09/19 18:41 Quetiapine Fumarate (SEROquel XR) 200 mg QHS PO 09/15/19 22:00 09/15/19 21:50 DC Quetiapine Fumarate (SEROquel XR) 200 mg QHS PRN PO Agitation 09/15/19 22:00 09/15/19 22:52 DC Quetiapine Fumarate (SEROquel) 12.5 mg DAILY PRN PO agitation 09/16/19 09:00 Quetiapine Fumarate (SEROquel) 12.5 mg DAILY@20 PO 09/16/19 20:00 09/15/19 23:00 DC Quetiapine Fumarate (SEROquel) 12.5 mg QHS PO 09/16/19 21:00 09/15/19 23:01 DC Quetiapine Fumarate (SEROquel) 12.5 mg QHS PRN PO agitation 09/15/19 23:00 Ramelteon (Rozerem) 8 mg QHS PO 09/14/19 20:30 10/08/19 22:20 Terazosin HCl (Hytrin) 10 mg QHS PO 09/14/19 21:00 10/08/19 22:22 Allergies Coded Allergies: No Known Allergies (Unverified , 08/01/13) Sravani Denton MD October 09, 2019 20:45
[2019-10-09] MEDS: LIDOCAINE 5% (LIDODERM) PATCH TD SCH (21:24)
[2019-10-09] MEDS: TERAZOSIN 5 MG CAP PO SCH (21:24)
[2019-10-09] MEDS: RAMELTEON 8 MG TAB (ROZEREM) PO SCH (21:24)
[2019-10-10 05:56] LABS: HEMATOCRIT 24.9 % (42.0-52.0); HEMOGLOBIN 8.2 g/dl (13.5-17.5); MEAN CORPUSCULAR HEMOGLOBIN 33.2 pg (27.0-33.0); MEAN CORPUSCULAR HGB CONC 32.9 g/dl (32.0-36.5); MEAN CORPUSCULAR VOLUME 100.8 fl (80.0-96.0); RED BLOOD COUNT 2.47 10^6/uL (4.30-6.10); WHITE BLOOD COUNT 3.3 10^3/uL (4.0-10.0)
[2019-10-10 05:58] LABS: PLATELET COUNT, AUTOMATED 85 10^3/uL (150-450)
[2019-10-10 06:00] VITALS: BP 130/69
[2019-10-10 06:25] LABS: BLOOD UREA NITROGEN 23 MG/DL (7-18); CALCIUM LEVEL 7.8 MG/DL (8.8-10.2); CARBON DIOXIDE LEVEL 27 MEQ/L (21-32); CHLORIDE LEVEL 113 MEQ/L (98-107); CREATININE FOR GFR 1.04 MG/DL (0.70-1.30); GLOMERULAR FILTRATION RATE > 60.0 (>35); GLUCOSE, FASTING 89 MG/DL (70-100); SODIUM LEVEL 145 MEQ/L (136-145)
[2019-10-10] MEDS: **NOTE PATIENT COMMENT** MISC XX SCH (09:27)
[2019-10-10] MEDS: CYANOCOBALAMIN 500 MCG TAB PO SCH (09:27)
[2019-10-10] MEDS: DOCUSATE SODIUM 100 MG CAP PO SCH ×2 (09:27→21:00)
[2019-10-10] MEDS: MIRALAX *UNIT DOSE* 17GM PACKET PO PRN (15:44)
--- NOTE | 2019-10-10 19:20 | IPNPDOC ---
Date Seen The patient was seen on 10/10/19. Progress Note SUBJECTIVE: No acute complaints overnight. Changed diet to mechanical soft due to poor dentition and patient's difficulty chewing with little teeth. Pleasant at bedside today. Patient denies chest pain, n/v/d, shortness of breath. OBJECTIVE: VITAL SIGNS: Please see below GEN: Slim build / well developed/ NAD, pleasant, communicating well INTEGUMENT: not flushed/ not jaundice HEENT: NCAT CVS: bradycardic with regular rhythm. NMRG/ radial pulses intact / no lower extremity edema LUNGS: lungs are clear to auscultation bilaterally on room air ABDOMEN: Contour (flat) MSK/EXTREMITIES: range of motion intact in all 4 extremities / requires assistance to stand and walk / tophi affecting multiple joints in upper and lower ext. Left foot 5th digit on has Stage II ulcer, appears clean and well healing. No foul smelling NEURO: CN 2-12 are grossly intact , no focal deficits PSYCH: alert and oriented to person but not place or time/ able to understand and follow commands well LABORATORY DATA: Please see below. IMAGING: No new imaging ASSESSMENT: Patient is an 84-year-old admitted for pancytopenia likely myelodysplastic syndrome, monitoring of bradycardia and requiring placement in SNF. PLAN: 1. Pancytopenia likely myelodysplastic syndrome. H/H stable. Heme/onc not r ecommending aggressive or palliative measures, transfuse as needed. Please refer to full consult for more information. Pt will need referral to [place] hematology after discharge, no need for BM bx at this time. F/u CBC bimonthly. 2. Bradycardia, chronic. Asymptomatic. Denies symptoms. No further w/up needed. 3. Vitamin B 12 deficiency. C/w vitamin supplementation. 4. 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 Tylenol, Lidocaine patch. 5. Alzheimer's Dementia, Lewey body dementia, chronic and severe. Worsening. Follows with neurologist. CT head unrevealing. Lives alone but will need placem ent. 6. Physical deconditioning, weakness. fall risk. PT/OT. 7. CKD 3 - Cr wnl. Careful with nephrotoxic meds. F/u labs daily. 8. BPH - terazosin 9. Gout w Tophi - UA wnl. Stable. 10. Paroxysmal atrial fibrillation. Not on AC at home. 11. DVT px. SCDS. Avoiding AC due to pancytopenia at this time. DISPOSITION: Currently awaiting placement to SNF. Awaiting Medicaid application to be completed. VS, I&O, 24H, Fishbone Vital Signs/I&O Vital Signs Date Time Temp Pulse Resp B/P (MAP) Pulse Ox O2 Delivery O2 Flow Rate FiO2 10/10/19 06:00 98.0 71 20 130/69 (89) 96 10/09/19 06:00 Room Air 10/08/19 10:15 98.0 99 I&O- Last 24 Hours up to 6 AM 10/10/19 06:00 Intake Total 1520 ml Balance 1520 ml Laboratory Data 24H LABS Laboratory Tests 2 10/10/19 05:37: Nucleated Red Blood Cells % (auto) 0.0, Immature Platelet Fraction 8.9, Anion Gap 5L, Glomerular Filtration Rate > 60.0, Calcium Level 7.8L CBC/BMP Laboratory Tests 10/10/19 05:37 Current Medications Current Medications Medications (Trade) Dose Ordered Sig/Elias Route PRN Reason Start Time Stop Time Status Last Admin Dose Admin Acetaminophen (Tylenol Tab) 650 mg Q4H PRN PO PAIN OR FEVER 09/14/19 19:30 09/14/19 20:19 DC Acetaminophen (Tylenol Tab) 1,300 mg Q8H PO 09/14/19 22:00 09/21/19 15:58 DC 09/20/19 15:04 Al Hydrox/Mg Hydrox/Simethicone (Mylanta) 30 ml DAILY PRN PO DYSPEPSIA 09/14/19 19:30 Aspirin (Ecotrin) 81 mg DAILY PO 09/15/19 09:00 09/15/19 06:48 DC Atropine Sulfate (Atropine Sulfate) 0.5 mg Q1HP PRN IV sustained HR <30 w symptoms 09/14/19 20:45 Hold Cephalexin Monohydrate (Keflex) 500 mg Q12H PO 09/28/19 09:00 10/04/19 21:01 DC 10/04/19 20:31 Cyanocobalamin (Vitamin B12) 1,000 mcg DAILY PO 09/25/19 09:00 10/10/19 09:27 Docusate Sodium (Colace) 100 mg BID PO 09/26/19 09:00 10/10/19 09:27 Home Med (Med Rec Complete!) ASDIRECTED XX 09/14/19 19:30 09/14/19 19:31 DC Lidocaine (Lidoderm Patch) 1 patch QHS TD 09/14/19 21:00 10/09/19 21:24 Lorazepam (Ativan) 1 mg STAT STAT IM 09/15/19 21:44 09/15/19 21:45 DC 09/15/19 22:07 Lorazepam (Ativan) 1 mg STAT STAT IM 09/22/19 03:31 09/22/19 03:34 DC 09/22/19 03:40 Non-Formulary Medication ( See Comment Field Below ) REMOVE LIDODERM PATCH DAILY XX 09/15/19 09:00 10/10/19 09:27 Oxycodone/ Acetaminophen (Percocet 5mg/ 325mg Tablet) 1 tab Q6HP PRN PO MILD/MODERATE PAIN (PS 1-7) 09/21/19 16:00 10/08/19 10:15 Oxycodone/ Acetaminophen (Percocet 5mg/ 325mg Tablet) 2 tab Q6HP PRN PO SEVERE PAIN (PS 8-10) 09/21/19 16:00 Polyethylene Glycol (Miralax) 1 pkt DAILYPRN PRN PO CONSTIPATION 09/26/19 10:45 10/10/19 15:44 Quetiapine Fumarate (SEROquel XR) 200 mg QHS PO 09/15/19 22:00 09/15/19 21:50 DC Quetiapine Fumarate (SEROquel XR) 200 mg QHS PRN PO Agitation 09/15/19 22:00 09/15/19 22:52 DC Quetiapine Fumarate (SEROquel) 12.5 mg DAILY PRN PO agitation 09/16/19 09:00 Quetiapine Fumarate (SEROquel) 12.5 mg DAILY@20 PO 09/16/19 20:00 09/15/19 23:00 DC Quetiapine Fumarate (SEROquel) 12.5 mg QHS PO 09/16/19 21:00 09/15/19 23:01 DC Quetiapine Fumarate (SEROquel) 12.5 mg QHS PRN PO agitation 09/15/19 23:00 Ramelteon (Rozerem) 8 mg QHS PO 09/14/19 20:30 10/09/19 21:24 Terazosin HCl (Hytrin) 10 mg QHS PO 09/14/19 21:00 10/09/19 21:24 Allergies Coded Allergies: No Known Allergies (Unverified , 08/01/13) Sravani Denton MD October 10, 2019 19:19
[2019-10-10] MEDS: RAMELTEON 8 MG TAB (ROZEREM) PO SCH (21:00)
[2019-10-10] MEDS: LIDOCAINE 5% (LIDODERM) PATCH TD SCH (21:00)
[2019-10-10] MEDS: TERAZOSIN 5 MG CAP PO SCH (21:02)
[2019-10-11 06:00] VITALS: BP 135/71
[2019-10-11 06:03] LABS: HEMATOCRIT 25.9 % (42.0-52.0); HEMOGLOBIN 8.7 g/dl (13.5-17.5); MEAN CORPUSCULAR HEMOGLOBIN 33.7 pg (27.0-33.0); MEAN CORPUSCULAR HGB CONC 33.6 g/dl (32.0-36.5); MEAN CORPUSCULAR VOLUME 100.4 fl (80.0-96.0); RED BLOOD COUNT 2.58 10^6/uL (4.30-6.10); WHITE BLOOD COUNT 2.7 10^3/uL (4.0-10.0)
[2019-10-11 06:08] LABS: PLATELET COUNT, AUTOMATED 77 10^3/uL (150-450)
[2019-10-11 06:30] LABS: BLOOD UREA NITROGEN 23 MG/DL (7-18); CALCIUM LEVEL 7.9 MG/DL (8.8-10.2); CARBON DIOXIDE LEVEL 28 MEQ/L (21-32); CHLORIDE LEVEL 114 MEQ/L (98-107); CREATININE FOR GFR 1.12 MG/DL (0.70-1.30); GLOMERULAR FILTRATION RATE > 60.0 (>35); GLUCOSE, FASTING 85 MG/DL (70-100); POTASSIUM SERUM 4.3 MEQ/L (3.5-5.1); SODIUM LEVEL 145 MEQ/L (136-145)
[2019-10-11] MEDS: DOCUSATE SODIUM 100 MG CAP PO SCH ×2 (09:03→21:08)
[2019-10-11] MEDS: **NOTE PATIENT COMMENT** MISC XX SCH (09:03)
[2019-10-11] MEDS: CYANOCOBALAMIN 500 MCG TAB PO SCH (09:03)
--- NOTE | 2019-10-11 18:46 | IPNPDOC ---
Date Seen The patient was seen on 10/11/19. Progress Note SUBJECTIVE: No acute events overnight. Patient denies chest pain, n/v/d, shortness of breath. OBJECTIVE: VITAL SIGNS: Please see below GEN: Slim build / well developed/ NAD, pleasant, communicating well INTEGUMENT: not flushed/ not jaundice HEENT: NCAT CVS: bradycardic with regular rhythm. NMRG/ radial pulses intact / no lower extremity edema LUNGS: lungs are clear to auscultation bilaterally on room air ABDOMEN: Contour (flat) MSK/EXTREMITIES: range of motion intact in all 4 extremities / requires assistance to stand and walk / tophi affecting multiple joints in upper and low er ext. Left foot 5th digit on has Stage II ulcer, appears clean and well healing. No foul smelling NEURO: CN 2-12 are grossly intact , no focal deficits PSYCH: alert and oriented to person but not place or time/ able to understand and follow commands well LABORATORY DATA: Please see below. IMAGING: No new imaging ASSESSMENT: Patient is an 84-year-old admitted for pancytopenia likely myelodysplastic syndrome, monitoring of bradycardia and requiring placement in SNF. PLAN: 1. Pancytopenia likely myelodysplastic syndrome. H/H stable. Heme/onc not recommending aggressive or palliative measures, transfuse as needed. Please refer to full consult for more information. Pt will need referral to [place] hematology after discharge, no need for BM bx at this time. F/u CBC bimonthly. 2. Bradycardia, chronic. Asymptomatic. Denies symptoms. No further w/up needed. 3. Vitamin B 12 deficiency. C/w vitamin supplementation. 4. 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 Tylenol, Lidocaine patch. 5. Alzheimer's Dementia, Lewey body dementia, chronic and severe. Worsening. Follows with neurologist. CT head unrevealing. Lives alone but will need placement. 6. Physical deconditioning, weakness. fall risk. PT/OT. 7. CKD 3 - Cr wnl. Careful with nephrotoxic meds. F/u labs daily. 8. BPH - terazosin 9. Gout w Tophi - UA wnl. Stable. 10. Paroxysmal atrial fibrillation. Not on AC at home. 11. DVT px. SCDS. Avoiding AC due to pancytopenia at this time. DISPOSITION: Currently awaiting placement to SNF. Awaiting Medicaid application to be completed. VS, I&O, 24H, Fishbone Vital Signs/I&O Vital Signs Date Time Temp Pulse Resp B/P (MAP) Pulse Ox O2 Delivery O2 Flow Rate FiO2 10/11/19 06:00 98.4 52 18 135/71 (92) 96 10/09/19 06:00 Room Air 10/08/19 10:15 98.0 99 I&O- Last 24 Hours up to 6 AM 10/11/19 06:00 Intake Total 970 ml Output Total 0 ml Balance 970 ml Laboratory Data 24H LABS Laboratory Tests 2 10/11/19 05:36: Nucleated Red Blood Cells % (auto) 0.0, Anion Gap 3L, Glomerular Filtration Rate > 60.0, Calcium Level 7.9L CBC/BMP Laboratory Tests 10/11/19 05:36 Current Medications Current Medications Medications (Trade) Dose Ordered Sig/Elias Route PRN Reason Start Time Stop Time Status Last Admin Dose Admin Acetaminophen (Tylenol Tab) 650 mg Q4H PRN PO PAIN OR FEVER 09/14/19 19:30 09/14/19 20:19 DC Acetaminophen (Tylenol Tab) 1,300 mg Q8H PO 09/14/19 22:00 09/21/19 15:58 DC 09/20/19 15:04 Al Hydrox/Mg Hydrox/Simethicone (Mylanta) 30 ml DAILY PRN PO DYSPEPSIA 09/14/19 19:30 Aspirin (Ecotrin) 81 mg DAILY PO 09/15/19 09:00 09/15/19 06:48 DC Atropine Sulfate (Atropine Sulfate) 0.5 mg Q1HP PRN IV sustained HR <30 w symptoms 09/14/19 20:45 Hold Cephalexin Monohydrate (Keflex) 500 mg Q12H PO 09/28/19 09:00 10/04/19 21:01 DC 10/04/19 20:31 Cyanocobalamin (Vitamin B12) 1,000 mcg DAILY PO 09/25/19 09:00 10/11/19 09:03 Docusate Sodium (Colace) 100 mg BID PO 09/26/19 09:00 10/11/19 09:03 Home Med (Med Rec Complete!) ASDIRECTED XX 09/14/19 19:30 09/14/19 19:31 DC Lidocaine (Lidoderm Patch) 1 patch QHS TD 09/14/19 21:00 10/10/19 21:00 Lorazepam (Ativan) 1 mg STAT STAT IM 09/15/19 21:44 09/15/19 21:45 DC 09/15/19 22:07 Lorazepam (Ativan) 1 mg STAT STAT IM 09/22/19 03:31 09/22/19 03:34 DC 09/22/19 03:40 Non-Formulary Medication ( See Comment Field Below ) REMOVE LIDODERM PATCH DAILY XX 09/15/19 09:00 10/11/19 09:03 Oxycodone/ Acetaminophen (Percocet 5mg/ 325mg Tablet) 1 tab Q6HP PRN PO MILD/MODERATE PAIN (PS 1-7) 09/21/19 16:00 10/08/19 10:15 Oxycodone/ Acetaminophen (Percocet 5mg/ 325mg Tablet) 2 tab Q6HP PRN PO SEVERE PAIN (PS 8-10) 09/21/19 16:00 Polyethylene Glycol (Miralax) 1 pkt DAILYPRN PRN PO CONSTIPATION 09/26/19 10:45 10/10/19 15:44 Quetiapine Fumarate (SEROquel XR) 200 mg QHS PO 09/15/19 22:00 09/15/19 21:50 DC Quetiapine Fumarate (SEROquel XR) 200 mg QHS PRN PO Agitation 09/15/19 22:00 09/15/19 22:52 DC Quetiapine Fumarate (SEROquel) 12.5 mg DAILY PRN PO agitation 09/16/19 09:00 Quetiapine Fumarate (SEROquel) 12.5 mg DAILY@20 PO 09/16/19 20:00 09/15/19 23:00 DC Quetiapine Fumarate (SEROquel) 12.5 mg QHS PO 09/16/19 21:00 09/15/19 23:01 DC Quetiapine Fumarate (SEROquel) 12.5 mg QHS PRN PO agitation 09/15/19 23:00 Ramelteon (Rozerem) 8 mg QHS PO 09/14/19 20:30 10/10/19 21:00 Terazosin HCl (Hytrin) 10 mg QHS PO 09/14/19 21:00 10/10/19 21:02 Allergies Coded Allergies: No Known Allergies (Unverified , 08/01/13) Sravani Denton MD October 11, 2019 18:46
[2019-10-11] MEDS: LIDOCAINE 5% (LIDODERM) PATCH TD SCH (21:08)
[2019-10-11] MEDS: TERAZOSIN 5 MG CAP PO SCH (21:08)
[2019-10-11] MEDS: RAMELTEON 8 MG TAB (ROZEREM) PO SCH (21:08)
[2019-10-12] MEDS: PERCOCET 5MG/325MG TAB PO PRN (02:53)
[2019-10-12 06:00] VITALS: BP 107/50
[2019-10-12 06:55] LABS: HEMATOCRIT 24.9 % (42.0-52.0); HEMOGLOBIN 8.2 g/dl (13.5-17.5); MEAN CORPUSCULAR HEMOGLOBIN 33.5 pg (27.0-33.0); MEAN CORPUSCULAR HGB CONC 32.9 g/dl (32.0-36.5); MEAN CORPUSCULAR VOLUME 101.6 fl (80.0-96.0); RED BLOOD COUNT 2.45 10^6/uL (4.30-6.10); WHITE BLOOD COUNT 3.5 10^3/uL (4.0-10.0)
[2019-10-12 07:02] LABS: PLATELET COUNT, AUTOMATED 75 10^3/uL (150-450)
[2019-10-12 07:19] LABS: BLOOD UREA NITROGEN 23 MG/DL (7-18); CARBON DIOXIDE LEVEL 27 MEQ/L (21-32); CHLORIDE LEVEL 110 MEQ/L (98-107); CREATININE FOR GFR 1.05 MG/DL (0.70-1.30); GLOMERULAR FILTRATION RATE > 60.0 (>35); GLUCOSE, FASTING 82 MG/DL (70-100); SODIUM LEVEL 142 MEQ/L (136-145)
[2019-10-12] MEDS: **NOTE PATIENT COMMENT** MISC XX SCH (08:05)
[2019-10-12] MEDS: CYANOCOBALAMIN 500 MCG TAB PO SCH (08:05)
[2019-10-12] MEDS: DOCUSATE SODIUM 100 MG CAP PO SCH ×2 (08:05→22:08)
[2019-10-12 22:00] VITALS: BP 123/64
[2019-10-12] MEDS: RAMELTEON 8 MG TAB (ROZEREM) PO SCH (22:08)
[2019-10-12] MEDS: TERAZOSIN 5 MG CAP PO SCH (22:09)
[2019-10-12] MEDS: LIDOCAINE 5% (LIDODERM) PATCH TD SCH (22:09)
[2019-10-13 06:00] VITALS: BP 140/67
[2019-10-13] MEDS: **NOTE PATIENT COMMENT** MISC XX SCH (08:47)
[2019-10-13] MEDS: CYANOCOBALAMIN 500 MCG TAB PO SCH (08:49)
[2019-10-13] MEDS: DOCUSATE SODIUM 100 MG CAP PO SCH ×2 (08:49→21:27)
[2019-10-13] MEDS: TERAZOSIN 5 MG CAP PO SCH (21:27)
[2019-10-13] MEDS: RAMELTEON 8 MG TAB (ROZEREM) PO SCH (21:27)
[2019-10-13] MEDS: LIDOCAINE 5% (LIDODERM) PATCH TD SCH (21:27)
[2019-10-14 06:00] VITALS: BP 134/75
[2019-10-14] MEDS: DOCUSATE SODIUM 100 MG CAP PO SCH ×2 (08:41→21:14)
[2019-10-14] MEDS: CYANOCOBALAMIN 500 MCG TAB PO SCH (08:41)
[2019-10-14] MEDS: **NOTE PATIENT COMMENT** MISC XX SCH (14:03)
[2019-10-14] MEDS: TERAZOSIN 5 MG CAP PO SCH (21:14)
[2019-10-14] MEDS: RAMELTEON 8 MG TAB (ROZEREM) PO SCH (21:14)
[2019-10-14] MEDS: LIDOCAINE 5% (LIDODERM) PATCH TD SCH (21:14)
[2019-10-15] MEDS: PERCOCET 5MG/325MG TAB PO PRN (01:55)
[2019-10-15 06:00] VITALS: BP 144/63
[2019-10-15 08:14] LABS: HEMATOCRIT 27.9 % (42.0-52.0); HEMOGLOBIN 9.1 g/dl (13.5-17.5); MEAN CORPUSCULAR HEMOGLOBIN 33.2 pg (27.0-33.0); MEAN CORPUSCULAR HGB CONC 32.6 g/dl (32.0-36.5); MEAN CORPUSCULAR VOLUME 101.8 fl (80.0-96.0); RED BLOOD COUNT 2.74 10^6/uL (4.30-6.10)
[2019-10-15 08:43] LABS: BLOOD UREA NITROGEN 22 MG/DL (7-18); CARBON DIOXIDE LEVEL 27 MEQ/L (21-32); CHLORIDE LEVEL 113 MEQ/L (98-107); CREATININE FOR GFR 1.11 MG/DL (0.70-1.30); GLOMERULAR FILTRATION RATE > 60.0 (>35); GLUCOSE, FASTING 84 MG/DL (70-100); POTASSIUM SERUM 4.1 MEQ/L (3.5-5.1); SODIUM LEVEL 145 MEQ/L (136-145)
[2019-10-15 08:58] LABS: PLATELET COUNT, AUTOMATED 68 10^3/uL (150-450)
[2019-10-15] MEDS: **NOTE PATIENT COMMENT** MISC XX SCH (09:00)
[2019-10-15] MEDS: DOCUSATE SODIUM 100 MG CAP PO SCH ×2 (09:00→20:45)
[2019-10-15] MEDS: CYANOCOBALAMIN 500 MCG TAB PO SCH (09:00)
--- NOTE | 2019-10-15 12:48 | IPNPDOC ---
Date Seen The patient was seen on 10/15/19. Progress Note SUBJECTIVE: No issues, ALC, pending placement. OBJECTIVE PHYSICAL EXAMINATION: PHYSICAL EXAMINATION: VITAL SIGNS: Please see below. GENERAL: Fairly male in No distress HEENT: Normocephalic, atraumatic, dry mucous membranes, positive pallor NECK: Supple CARDIOVASCULAR EXAMINATION: S1, S2 RESPIRATORY EXAMINATION: CTAB ABDOMINAL EXAMINATION: Soft, nontender, nondistended, positive bowel sounds EXTREMITIES: no edema SKIN: No rash NEUROLOGICAL EXAMINATION: Awake PSYCHIATRIC EXAMINATION: Flat affect Lab level stable: Patient declines additional lab workup, will not order unless clinical presentation changes. Assessment and plan: Pt is an 84-yoM with PMH of myelodysplastic syndrome presenting with admitted for pancytopenia, and baseline bradycardia, pending SNF placement. #Pancytopenia likely myelodysplastic syndrome -H/H stable, patient declines additional workup at this time, CBC bimonthly -Heme/onc not recommending aggressive or palliative measures, transfuse as needed, [place] hematology referral after discharge, no need for BM bx at this time #Bradycardia, chronic, asx, monitor prn #Vitamin B 12 deficiency: cont vitamin supplementation. #R hip pain secondary to DJD, chronic: cont Tylenol, Lidocaine patch. #Alzheimer's Dementia, Lewey body dementia/, insomnia, chronic, Worsening, head CT neg. F/u neurologist. Lives alone, pending placement. -Continue Seroquel when necessary, sleep medication qhs #Physical deconditioning, weakness. fall risk. PT/OT #CKD 3, stable , avoid nephrotoxins, monitor Cr prn #BPH: cont home terazosin #Gout w Tophi: monitor prn #Paroxysmal atrial fibrillation. Not on AC at home. DVT ppx: cont SCDS. Avoiding pharm AC due to pancytopenia DISPOSITION: pending placement to SNF, pending completion of Medicaid application Will follow prn. VS, I&O, 24H, Fishbone Vital Signs/I&O Vital Signs Date Time Temp Pulse Resp B/P (MAP) Pulse Ox O2 Delivery O2 Flow Rate FiO2 10/15/19 06:00 98.0 69 18 144/63 (90) 95 10/14/19 06:00 Room Air I&O- Last 24 Hours up to 6 AM 10/15/19 05:59 Intake Total 810 ml Balance 810 ml PAT ALFRED MD October 15, 2019 07:40
[2019-10-15] MEDS: RAMELTEON 8 MG TAB (ROZEREM) PO SCH (20:45)
[2019-10-15] MEDS: TERAZOSIN 5 MG CAP PO SCH (20:48)
[2019-10-15] MEDS: LIDOCAINE 5% (LIDODERM) PATCH TD SCH (20:48)
[2019-10-16 06:00] VITALS: BP 130/64
[2019-10-16] MEDS: CYANOCOBALAMIN 500 MCG TAB PO SCH (08:23)
[2019-10-16] MEDS: DOCUSATE SODIUM 100 MG CAP PO SCH ×2 (08:23→20:40)
[2019-10-16] MEDS: **NOTE PATIENT COMMENT** MISC XX SCH (08:24)
[2019-10-16] MEDS: RAMELTEON 8 MG TAB (ROZEREM) PO SCH (20:40)
[2019-10-16] MEDS: TERAZOSIN 5 MG CAP PO SCH (20:43)
[2019-10-16] MEDS: LIDOCAINE 5% (LIDODERM) PATCH TD SCH (20:43)
[2019-10-17 06:00] VITALS: BP 131/67
[2019-10-17] MEDS: DOCUSATE SODIUM 100 MG CAP PO SCH ×2 (08:49→19:54)
[2019-10-17] MEDS: CYANOCOBALAMIN 500 MCG TAB PO SCH (08:51)
[2019-10-17] MEDS: **NOTE PATIENT COMMENT** MISC XX SCH (14:25)
[2019-10-17] MEDS: RAMELTEON 8 MG TAB (ROZEREM) PO SCH (20:01)
[2019-10-17] MEDS: TERAZOSIN 5 MG CAP PO SCH (20:02)
[2019-10-17] MEDS: LIDOCAINE 5% (LIDODERM) PATCH TD SCH (20:07)
[2019-10-17] MEDS: POLYVINYL ALCOHOL OPHTH SOLN 15 ML(LIQUITEARS) OU PRN (22:31)
[2019-10-17] MEDS ORDERED: HALOPERIDOL 5MG/ML VIAL (J1630 PER 1) IM ONE (23:30)
[2019-10-17] MEDS ORDERED: HALOPERIDOL 5MG/ML VIAL (J1630 PER 1) IM PRN (23:30)
[2019-10-18 06:00] VITALS: BP 113/59
[2019-10-18] MEDS: DOCUSATE SODIUM 100 MG CAP PO SCH ×2 (08:14→21:12)
[2019-10-18] MEDS: **NOTE PATIENT COMMENT** MISC XX SCH (08:15)
[2019-10-18] MEDS: CYANOCOBALAMIN 500 MCG TAB PO SCH (08:15)
[2019-10-18] MEDS: LIDOCAINE 5% (LIDODERM) PATCH TD SCH (21:12)
[2019-10-18] MEDS: RAMELTEON 8 MG TAB (ROZEREM) PO SCH (21:12)
[2019-10-18] MEDS: TERAZOSIN 5 MG CAP PO SCH (21:15)
[2019-10-19 06:00] VITALS: BP 128/61
[2019-10-19] MEDS: DOCUSATE SODIUM 100 MG CAP PO SCH ×2 (09:11→20:30)
[2019-10-19] MEDS: CYANOCOBALAMIN 500 MCG TAB PO SCH (09:11)
[2019-10-19] MEDS: **NOTE PATIENT COMMENT** MISC XX SCH (09:12)
[2019-10-19] MEDS: PERCOCET 5MG/325MG TAB PO PRN (18:12)
[2019-10-19] MEDS: POLYVINYL ALCOHOL OPHTH SOLN 15 ML(LIQUITEARS) OU PRN (18:48)
[2019-10-19] MEDS: TERAZOSIN 5 MG CAP PO SCH (20:30)
[2019-10-19] MEDS: RAMELTEON 8 MG TAB (ROZEREM) PO SCH (20:30)
[2019-10-19] MEDS: LIDOCAINE 5% (LIDODERM) PATCH TD SCH (20:30)
[2019-10-20 06:00] VITALS: BP 110/54
[2019-10-20] MEDS: CYANOCOBALAMIN 500 MCG TAB PO SCH (09:00)
[2019-10-20] MEDS: DOCUSATE SODIUM 100 MG CAP PO SCH ×2 (09:00→20:27)
[2019-10-20] MEDS: **NOTE PATIENT COMMENT** MISC XX SCH (09:01)
[2019-10-20] MEDS: LIDOCAINE 5% (LIDODERM) PATCH TD SCH (20:25)
[2019-10-20] MEDS: TERAZOSIN 5 MG CAP PO SCH (20:27)
[2019-10-20] MEDS: RAMELTEON 8 MG TAB (ROZEREM) PO SCH (20:27)
[2019-10-20] MEDS: POLYVINYL ALCOHOL OPHTH SOLN 15 ML(LIQUITEARS) OU PRN (20:28)
[2019-10-21] MEDS: CYANOCOBALAMIN 500 MCG TAB PO SCH (09:57)
[2019-10-21] MEDS: DOCUSATE SODIUM 100 MG CAP PO SCH ×2 (09:57→21:34)
[2019-10-21] MEDS: **NOTE PATIENT COMMENT** MISC XX SCH (09:57)
[2019-10-21] MEDS: TERAZOSIN 5 MG CAP PO SCH (21:33)
[2019-10-21] MEDS: RAMELTEON 8 MG TAB (ROZEREM) PO SCH (21:35)
[2019-10-21] MEDS: LIDOCAINE 5% (LIDODERM) PATCH TD SCH (21:35)
[2019-10-21] MEDS: PERCOCET 5MG/325MG TAB PO PRN (21:35)
[2019-10-22 06:00] VITALS: BP 125/60
[2019-10-22 08:34] LABS: BASO % 0.6 % (0.0-1.0); EOS # 0.2 10^3/uL (0.0-0.5); EOS % 4.8 % (0.0-3.0); HEMATOCRIT 25.2 % (42.0-52.0); HEMOGLOBIN 8.4 g/dl (13.5-17.5); LYMPH # 0.7 10^3/uL (1.5-5.0); LYMPH % 18.8 % (24.0-44.0); MEAN CORPUSCULAR HEMOGLOBIN 33.2 pg (27.0-33.0); MEAN CORPUSCULAR HGB CONC 33.3 g/dl (32.0-36.5); MEAN CORPUSCULAR VOLUME 99.6 fl (80.0-96.0); MONO # 0.4 10^3/uL (0.0-0.8); NEUTROPHILS # 2.3 10^3/uL (1.5-8.5); NEUTROPHILS % 65.2 % (36.0-66.0); RED BLOOD COUNT 2.53 10^6/uL (4.30-6.10); WHITE BLOOD COUNT 3.5 10^3/uL (4.0-10.0)
[2019-10-22 08:54] LABS: PLATELET COUNT, AUTOMATED 50 10^3/uL (150-450)
[2019-10-22] MEDS: CYANOCOBALAMIN 500 MCG TAB PO SCH (08:56)
[2019-10-22] MEDS: **NOTE PATIENT COMMENT** MISC XX SCH (08:56)
[2019-10-22] MEDS: PERCOCET 5MG/325MG TAB PO PRN ×2 (08:56→20:49)
[2019-10-22] MEDS: DOCUSATE SODIUM 100 MG CAP PO SCH ×2 (08:56→20:49)
[2019-10-22 09:51] LABS: BLOOD UREA NITROGEN 25 MG/DL (7-18); CARBON DIOXIDE LEVEL 28 MEQ/L (21-32); CHLORIDE LEVEL 111 MEQ/L (98-107); GLOMERULAR FILTRATION RATE > 60.0 (>35); GLUCOSE, FASTING 91 MG/DL (70-100); MAGNESIUM LEVEL 2.2 MG/DL (1.8-2.4); POTASSIUM SERUM 4.3 MEQ/L (3.5-5.1); SODIUM LEVEL 143 MEQ/L (136-145)
--- NOTE | 2019-10-22 11:40 | IPNPDOC ---
Text Note Date of Service The patient was seen on 10/22/19. NOTE Subjective: Patient is an 84-year-old male with a PMHx of myelodysplastic syndrome presenting with admitted for pancytopenia, and baseline bradycardia, pending SNF placement. Patient was seen and examined at the bedside. Patient denies any chest pain, SOB, palpitations, nausea, vomiting, abdominal pain, diarrhea, or urinary discomfort. Objective: Vitals (See below) General: Lying in bed, no acute distress, comfortable, Awake / Alert HEENT: NC, AT CVS: +S1S2 Lungs: Fair air entry b/l, -w/r/r Abdomen: Soft, ND, NT Extremities: - Edema, - Calf tenderness Skin: R foot dorsal surface with area of what appears like petechiae Assessment and plan: Pancytopenia - likely 2/2 myelodysplastic syndrome - Hg has remained stable - Platelet count remains appropriate - Will continue to follow CBC weekly to evaluate for transfusion needs - Heme / Onc on consult; appreciate their input; no indications for bone marrow biopsy at this time; will c/w supportive care s/p Bradycardia - Remains asymptomatic Vitamin B 12 deficiency: cont vitamin supplementation. R hip pain 2/2 DJD, chronic - c/w Lidocaine patch - c/w pain control as ordered Alzheimer's Dementia, Lewey body dementia - with episodes of Delirium - CT head 10/21: No acute intracranial findings. - Will continue with Haldol PRN - Will have outpatient follow up with Neurology - c/w Seroquel; will adjust frequency to scheduled from PRN Physical deconditioning - c/w PT and OT - Will likely require placement for continued rehabilitation CKD3 - Cr appears to be at baseline BPH - c/w terazosin Gout w Tophi - c/w pain control as ordered Paroxysmal atrial fibrillation - Appears to be well controlled - Currently not on any rate / rhythm control - Currently not on anticoagulation DVT prophylaxis - c/w TEDs / Sequentials (re: Pancytopenia) Disposition: - Will need placement to SNF - Medicaid application pending VS,[place], I+O VS, Conge, I+O Laboratory Tests 10/22/19 07:48 10/22/19 09:13 Vital Signs Date Time Temp Pulse Resp B/P (MAP) Pulse Ox O2 Delivery O2 Flow Rate FiO2 10/22/19 09:26 18 10/22/19 08:56 Room Air 10/22/19 06:00 97.2 63 125/60 (71) 97 I&O- Last 24 Hours up to 6 AM 10/22/19 06:00 Intake Total 760 ml Output Total 0 ml Balance 760 ml JOEY HERNANDEZ MD October 22, 2019 11:40
[2019-10-22] MEDS: QUEtiapine FUMARATE 12.5 MG HALF-TAB PO SCH (20:49)
[2019-10-22] MEDS: TERAZOSIN 5 MG CAP PO SCH (20:49)
[2019-10-22] MEDS: RAMELTEON 8 MG TAB (ROZEREM) PO SCH (20:50)
[2019-10-22] MEDS: LIDOCAINE 5% (LIDODERM) PATCH TD SCH (20:50)
[2019-10-23] MEDS: PERCOCET 5MG/325MG TAB PO PRN ×2 (04:41→20:16)
[2019-10-23 06:00] VITALS: BP 115/55
[2019-10-23] MEDS: CYANOCOBALAMIN 500 MCG TAB PO SCH (09:33)
[2019-10-23] MEDS: **NOTE PATIENT COMMENT** MISC XX SCH (09:33)
[2019-10-23] MEDS: DOCUSATE SODIUM 100 MG CAP PO SCH ×2 (09:33→20:15)
[2019-10-23] MEDS: LIDOCAINE 5% (LIDODERM) PATCH TD SCH (20:15)
[2019-10-23] MEDS: RAMELTEON 8 MG TAB (ROZEREM) PO SCH (20:15)
[2019-10-23] MEDS: QUEtiapine FUMARATE 12.5 MG HALF-TAB PO SCH (20:15)
[2019-10-23] MEDS: TERAZOSIN 5 MG CAP PO SCH (20:16)
[2019-10-24 06:00] VITALS: BP 114/55
[2019-10-24] MEDS: DOCUSATE SODIUM 100 MG CAP PO SCH ×2 (09:46→21:40)
[2019-10-24] MEDS: **NOTE PATIENT COMMENT** MISC XX SCH (09:47)
[2019-10-24] MEDS: CYANOCOBALAMIN 500 MCG TAB PO SCH (09:47)
[2019-10-24] MEDS ORDERED: PEG1POW PO (10:15)
[2019-10-24] MEDS ORDERED: VITA500T40 PO (10:15)
[2019-10-24] MEDS ORDERED: QUET1TAB7 PO (10:15)
[2019-10-24] MEDS ORDERED: DOCU100C16 PO (10:15)
[2019-10-24] MEDS ORDERED: PERCOCET PO (10:15)
--- NOTE | 2019-10-24 10:22 | DS.PDOC ---
Discharge Summary General Date of Admission Sep 14, 2019 at 19:22 Date of Discharge 10/24/2019 Discharge Summary PROCEDURES PERFORMED DURING STAY: [None]. ADMITTING DIAGNOSES / DISCHARGE DIAGNOSES: Pancytopenia - likely 2/2 myelodysplastic syndrome s/p Bradycardia Vitamin B 12 deficiency: cont vitamin supplementation. R hip pain 2/2 DJD, chronic Alzheimer's Dementia, Lewey body dementia - with episodes of Delirium Physical deconditioning CKD3 BPH Gout w Tophi Paroxysmal atrial fibrillation DVT prophylaxis COMPLICATIONS/CHIEF COMPLAINT: Bradycardia. HISTORY OF PRESENT ILLNESS: Patient is an 84-year-old male with a PMHx of myelodysplastic syndrome presenting with admitted for pancytopenia, and baseline bradycardia, pending SNF placement. HOSPITAL COURSE: Pancytopenia - likely 2/2 myelodysplastic syndrome - Hg has remained stable - Platelet count remains appropriate - Will continue to follow CBC weekly to evaluate for transfusion needs - Heme / Onc on consult; appreciate their input; no indications for bone marrow biopsy at this time; will c/w supportive care s/p Bradycardia - Remains asymptomatic Vitamin B 12 deficiency: cont vitamin supplementation. R hip pain 2/2 DJD, chronic - c/w Lidocaine patch - c/w pain control as ordered Alzheimer's Dementia, Lewey body dementia - with episodes of Delirium - CT head 10/21: No acute intracranial findings. - s/p Haldol PRN - Will have outpatient follow up with Neurology - c/w adjusted dose of Seroquel; Physical deconditioning - c/w PT and OT - Will be transitioned to [facility] today CKD3 - Cr appears to be at baseline BPH - c/w terazosin Gout w Tophi - c/w pain control as ordered Paroxysmal atrial fibrillation - Appears to be well controlled - Currently not on any rate / rhythm control - Currently not on anticoagulation (re: Pancytopenia / Anemia / MDS) DVT prophylaxis - c/w TEDs / Sequentials (re: Pancytopenia) DISCHARGE MEDICATIONS: Please see below. ALLERGIES: Please see below. PHYSICAL EXAMINATION ON DISCHARGE: Vitals (See below) General: Lying in bed, appears comfortable, Awake / Alert HEENT: NC, AT CVS: +S1S2 Lungs: Fair air entry b/l, no evidence of wheezing / rhonchi / rales Abdomen: Soft, non-distended / non-tender Extremities: No evidence of edema, - Calf tenderness Skin: R foot dorsal surface with area of what appears like petechiae LABORATORY DATA: Please see below. ACTIVITY: [As tolerated]. DISCHARGE PLAN: Follow up with PCP, Oncology and Neurology within 7 days Remain compliant with treatment plan and medications Return to the ER if you experience any problems DISPOSITION: Home DISCHARGE CONDITION: [Stable]. TIME SPENT ON DISCHARGE: 35 minutes Vital Signs/I&Os Vital Signs Date Time Temp Pulse Resp B/P (MAP) Pulse Ox O2 Delivery O2 Flow Rate FiO2 10/24/19 06:00 98.4 51 14 114/55 (74) 96 Room Air I&O- Last 24 Hours up to 6 AM 10/24/19 06:00 Intake Total 790 ml Output Total 120 ml Balance 670 ml Discharge Medications Scheduled Aspirin (Aspirin EC) 81 Mg Tablet.dr, 81 MG PO DAILY, (Reported) Cyanocobalamin (Vitamin B-12) (Vitamin B-12) 500 Mcg Tablet, 1,000 MCG PO DAILY Docusate Sodium (Docusate Sodium) 100 Mg Capsule, 100 MG PO BID Quetiapine Fumarate (Quetiapine Fumarate) 25 Mg Tablet, 12.5 MG PO QHS Terazosin Hcl (Terazosin HCl) 10 Mg Capsule, 10 MG PO QHS, (Reported) Scheduled PRN Oxycodone/Acetaminophen (Oxycodone-Acetaminophen 5-325) 1 Each Tablet, 1 TAB PO Q6HP PRN for MILD/MODERATE PAIN (PS 1-7) Polyethylene Glycol 3350 (Polyethylene Glycol 3350) 17 Gm Powd.pack, 1 PKT PO DAILYPRN PRN for CONSTIPATION Allergies Coded Allergies: No Known Allergies (Unverified , 08/01/13) JOEY HERNANDEZ MD October 24, 2019 10:22
[2019-10-24] MEDS: QUEtiapine FUMARATE 12.5 MG HALF-TAB PO SCH (21:39)
[2019-10-24] MEDS: TERAZOSIN 5 MG CAP PO SCH (21:39)
[2019-10-24] MEDS: LIDOCAINE 5% (LIDODERM) PATCH TD SCH (21:40)
[2019-10-24] MEDS: RAMELTEON 8 MG TAB (ROZEREM) PO SCH (21:40)
[2019-10-25 06:00] VITALS: BP 106/54
[2019-10-25] MEDS ORDERED: RAME8TAB2 PO (06:35)
[2019-10-25] MEDS ORDERED: LIDO5TD TD (06:35)
[2019-10-25] MEDS: **NOTE PATIENT COMMENT** MISC XX SCH (09:00)
[2019-10-25] MEDS: DOCUSATE SODIUM 100 MG CAP PO SCH ×2 (10:22→22:24)
[2019-10-25] MEDS: CYANOCOBALAMIN 500 MCG TAB PO SCH (10:23)
[2019-10-25] MEDS ORDERED: MIRALAX *UNIT DOSE* 17GM PACKET PO PRN (12:15)
[2019-10-25] MEDS: RAMELTEON 8 MG TAB (ROZEREM) PO SCH (22:22)
[2019-10-25] MEDS: LIDOCAINE 5% (LIDODERM) PATCH TD SCH (22:24)
[2019-10-25] MEDS: TERAZOSIN 5 MG CAP PO SCH (22:24)
[2019-10-25] MEDS: QUEtiapine FUMARATE 12.5 MG HALF-TAB PO SCH (22:24)
[2019-10-26 06:00] VITALS: BP 126/60
[2019-10-26] MEDS: **NOTE PATIENT COMMENT** MISC XX SCH (09:10)
[2019-10-26] MEDS: CYANOCOBALAMIN 500 MCG TAB PO SCH (09:10)
[2019-10-26] MEDS: DOCUSATE SODIUM 100 MG CAP PO SCH ×2 (09:10→20:25)
[2019-10-26] MEDS: RAMELTEON 8 MG TAB (ROZEREM) PO SCH (20:23)
[2019-10-26] MEDS: QUEtiapine FUMARATE 12.5 MG HALF-TAB PO SCH (20:25)
[2019-10-26] MEDS: LIDOCAINE 5% (LIDODERM) PATCH TD SCH (20:25)
[2019-10-26] MEDS: TERAZOSIN 5 MG CAP PO SCH (20:25)
[2019-10-27 06:00] VITALS: BP 127/66
[2019-10-27] MEDS: CYANOCOBALAMIN 500 MCG TAB PO SCH (09:53)
[2019-10-27] MEDS: DOCUSATE SODIUM 100 MG CAP PO SCH ×2 (09:53→20:20)
[2019-10-27] MEDS: **NOTE PATIENT COMMENT** MISC XX SCH (09:54)
[2019-10-27] MEDS: QUEtiapine FUMARATE 12.5 MG HALF-TAB PO SCH (20:20)
[2019-10-27] MEDS: RAMELTEON 8 MG TAB (ROZEREM) PO SCH (20:20)
[2019-10-27] MEDS: TERAZOSIN 5 MG CAP PO SCH (20:20)
[2019-10-27] MEDS: LIDOCAINE 5% (LIDODERM) PATCH TD SCH (20:21)
[2019-10-27 22:00] VITALS: BP 146/75
[2019-10-28 06:00] VITALS: BP 139/75
[2019-10-28] MEDS: DOCUSATE SODIUM 100 MG CAP PO SCH ×2 (08:59→20:39)
[2019-10-28] MEDS: CYANOCOBALAMIN 500 MCG TAB PO SCH (08:59)
[2019-10-28] MEDS: **NOTE PATIENT COMMENT** MISC XX SCH (09:00)
[2019-10-28] MEDS ORDERED: HALOPERIDOL 5MG/ML VIAL (J1630 PER 1) As Ordered ONE (10:59)
[2019-10-28] MEDS ORDERED: HALOPERIDOL 5MG/ML VIAL (J1630 PER 1) IV PRN (11:00)
[2019-10-28 13:01] LABS: HEMATOCRIT 26.3 % (42.0-52.0); HEMOGLOBIN 8.6 g/dl (13.5-17.5); MEAN CORPUSCULAR HEMOGLOBIN 33.5 pg (27.0-33.0); MEAN CORPUSCULAR HGB CONC 32.7 g/dl (32.0-36.5); MEAN CORPUSCULAR VOLUME 102.3 fl (80.0-96.0); RED BLOOD COUNT 2.57 10^6/uL (4.30-6.10); WHITE BLOOD COUNT 5.4 10^3/uL (4.0-10.0)
[2019-10-28 13:06] LABS: PLATELET COUNT, AUTOMATED 61 10^3/uL (150-450)
[2019-10-28 13:25] LABS: CALCIUM LEVEL 8.3 MG/DL (8.8-10.2); CREATININE FOR GFR 1.39 MG/DL (0.70-1.30); MAGNESIUM LEVEL 2.2 MG/DL (1.8-2.4); POTASSIUM SERUM 4.6 MEQ/L (3.5-5.1)
[2019-10-28] MEDS: RAMELTEON 8 MG TAB (ROZEREM) PO SCH (20:39)
[2019-10-28] MEDS: LIDOCAINE 5% (LIDODERM) PATCH TD SCH (20:39)
[2019-10-28] MEDS: QUEtiapine FUMARATE 12.5 MG HALF-TAB PO SCH (20:39)
[2019-10-28 21:01] VITALS: BP 115/57
[2019-10-28] MEDS: TERAZOSIN 5 MG CAP PO SCH (21:01)
[2019-10-29 06:00] VITALS: BP 110/52
[2019-10-29] MEDS: CYANOCOBALAMIN 500 MCG TAB PO SCH (08:00)
[2019-10-29] MEDS: DOCUSATE SODIUM 100 MG CAP PO SCH (08:00)
[2019-10-29] MEDS: **NOTE PATIENT COMMENT** MISC XX SCH (08:06)
--- NOTE | 2019-10-29 15:38 | IPNPDOC ---
Text Note Date of Service The patient was seen on 10/29/19. NOTE Patient discharged to [facility] 10/29/19. Please see discharge summary previously dictated for full details regarding hospital stay. VS,Fishbone, I+O VS, Fishbone, I+O Vital Signs Date Time Temp Pulse Resp B/P (MAP) Pulse Ox O2 Delivery O2 Flow Rate FiO2 10/29/19 06:00 98.1 58 17 110/52 (71) 98 Room Air I&O- Last 24 Hours up to 6 AM 10/29/19 06:00 Intake Total 700 ml Output Total 0 ml Balance 700 ml ATIYA HUIZAR MD October 29, 2019 15:38
== END 2019-10-29 12:13 | DRG 812 ==
LOC: M ED 16:31 → M ED INP 19:22 → ENRESERVDT 20:35 → ENRESERVTM 20:35 → M MSPAV 21:15
PROVIDERS: ADMIT Internal Medicine; ATTEND Internal Medicine
PROC: 30233N1 Transfusion of Nonautologous Red Blood Cells into Peripheral Vein, Percutaneous Approach (ICD-10-PCS; principal; 2019-09-14)
DX: D46.9 Myelodysplastic syndrome, unspecified (principal); D61.818 Other pancytopenia; I50.32 Chronic diastolic (congestive) heart failure; I13.0 Hypertensive heart and chronic kidney disease with heart failure and stage 1 through stage 4 chronic kidney disease, or unspecified chronic kidney disease; L97.529 Non-pressure chronic ulcer of other part of left foot with unspecified severity; R00.1 Bradycardia, unspecified; G30.9 Alzheimer's disease, unspecified; N18.3 Chronic kidney disease, stage 3 (moderate); G31.83 Neurocognitive disorder with Lewy bodies; N40.0 Benign prostatic hyperplasia without lower urinary tract symptoms; M10.9 Gout, unspecified; E53.8 Deficiency of other specified B group vitamins; I48.0 Paroxysmal atrial fibrillation; Z79.899 Other long term (current) drug therapy; Z79.82 Long term (current) use of aspirin; L03.032 Cellulitis of left toe

== ENCOUNTER → 2019-11-07 | Outpatient (REF) | payer OTHER ==
[~2019-11-07] MED LIST changes: +ASPI81TA33 PO; +DOCU100C16 PO; +LIDO5TD TD; +PATIENT COMMENTS; +PEG1POW PO; +PERCOCET PO; +QUET1TAB7 PO; +RAME8TAB2 PO; +VITA500T40 PO
[2019-11-07 09:17] LABS: HEMATOCRIT 21.1 % (42.0-52.0); MEAN CORPUSCULAR HEMOGLOBIN 33.8 pg (27.0-33.0); MEAN CORPUSCULAR HGB CONC 32.7 g/dl (32.0-36.5); MEAN CORPUSCULAR VOLUME 103.4 fl (80.0-96.0); RED BLOOD COUNT 2.04 10^6/uL (4.30-6.10); WHITE BLOOD COUNT 4.3 10^3/uL (4.0-10.0)
[2019-11-07 09:22] LABS: HEMOGLOBIN 6.9 g/dl (13.5-17.5); PLATELET COUNT, AUTOMATED 84 10^3/uL (150-450)
== END ==
LOC: SKLAB8 07:00
PROVIDERS: ATTEND Internal Medicine
DX: D64.9 Anemia, unspecified (principal); G30.9 Alzheimer's disease, unspecified; I50.32 Chronic diastolic (congestive) heart failure

== ENCOUNTER → 2019-11-07 | Outpatient (REF) | payer OTHER | LOC: SKLAB8 13:23 | PROVIDERS: ATTEND Internal Medicine | DX: D64.9 Anemia, unspecified (principal) ==

== ENCOUNTER 2019-11-08 10:11 | Outpatient (CLI) | payer OTHER ==
[~2019-11-08] VITALS: Ht 170.2 cm; Wt 75.0 kg
[~2019-11-08 10:11] MED LIST changes: +ACETAMINOPHEN TAB 650MG DOSE (2X325MG) PO SCH; +diphenhydrAMINE 25MG CAP PO SCH
[2019-11-08 10:44] VITALS: BP 140/66
[2019-11-08 11:00] VITALS: BP 124/59
[2019-11-08 12:00] VITALS: BP 137/65
[2019-11-08 12:48] VITALS: BP 148/78
[2019-11-08 13:03] VITALS: BP 151/68
== END 2019-11-08 14:40 ==
LOC: M INFU 10:11
PROVIDERS: ATTEND Nurse Practitioner Family
DX: D64.9 Anemia, unspecified (principal)
CPT/HCPCS: 36430; P9016

== ENCOUNTER → 2019-11-14 | Outpatient (REF) | payer OTHER ==
[~2019-11-14] MED LIST changes: +ACET650S3 PR; -ACETAMINOPHEN TAB 650MG DOSE (2X325MG) PO SCH; -AMLO10TA5 PO; +AMLO1TAB25 PO; +AMOX875T2 PO; +ANEC4CRE3 TOP; -ASPI81TA85 PO; +ASPI81TA86 PO; +ATIV1TAB10 PO; +ATRO1OPD SL; +BISA10SU4 PR; +CYAN100050 PO; +FERR1TAB8 PO; +FLEEENE12 PR; +FOLI1TAB11 PO; +HYDR-3715 PO; +HYOS125TA PO; +LACT20EL PO; +MAPA325T8 PO; +MELA1TAB9 PO; +MM S100C PO; +MOM30SS2 PO; +SCOP1PAT2 TOP; +SERO50TA PO; +ZOFR4TAB16 PO; -diphenhydrAMINE 25MG CAP PO SCH
== END ==
LOC: SKLAB8 07:00
PROVIDERS: ATTEND Internal Medicine
DX: D64.9 Anemia, unspecified (principal); I50.32 Chronic diastolic (congestive) heart failure

== ENCOUNTER → 2019-11-21 | Outpatient (REF) | payer OTHER | LOC: SKLAB8 07:00 | PROVIDERS: ATTEND Internal Medicine | DX: D64.9 Anemia, unspecified (principal); I50.32 Chronic diastolic (congestive) heart failure ==

== ENCOUNTER → 2019-11-28 | Outpatient (REF) | payer OTHER ==
[~2019-11-28] MED LIST changes: -ACET650S3 PR; +AMLO10TA5 PO; -AMLO1TAB25 PO; -AMOX875T2 PO; -ANEC4CRE3 TOP; +ASPI81TA85 PO; -ASPI81TA86 PO; -ATIV1TAB10 PO; -ATRO1OPD SL; -BISA10SU4 PR; -CYAN100050 PO; -FERR1TAB8 PO; -FLEEENE12 PR; -FOLI1TAB11 PO; -HYDR-3715 PO; -HYOS125TA PO; -LACT20EL PO; -MAPA325T8 PO; -MELA1TAB9 PO; -MM S100C PO; -MOM30SS2 PO; -SCOP1PAT2 TOP; -SERO50TA PO; -ZOFR4TAB16 PO
[2019-11-28 09:10] LABS: HEMATOCRIT 25.3 % (42.0-52.0); HEMOGLOBIN 8.1 g/dl (13.5-17.5); MEAN CORPUSCULAR HEMOGLOBIN 32.4 pg (27.0-33.0); MEAN CORPUSCULAR VOLUME 101.2 fl (80.0-96.0); WHITE BLOOD COUNT 4.7 10^3/uL (4.0-10.0)
[2019-11-28 09:16] LABS: PLATELET COUNT, AUTOMATED 74 10^3/uL (150-450)
== END ==
LOC: SKLAB8 07:00
PROVIDERS: ATTEND Internal Medicine
DX: D64.9 Anemia, unspecified (principal); I50.32 Chronic diastolic (congestive) heart failure

== ENCOUNTER → 2019-12-05 | Outpatient (REF) | payer OTHER ==
[2019-12-05 08:19] LABS: HEMATOCRIT 21.6 % (42.0-52.0); HEMOGLOBIN 7.1 g/dl (13.5-17.5); MEAN CORPUSCULAR HEMOGLOBIN 33.3 pg (27.0-33.0); MEAN CORPUSCULAR HGB CONC 32.9 g/dl (32.0-36.5); MEAN CORPUSCULAR VOLUME 101.4 fl (80.0-96.0); PLATELET COUNT, AUTOMATED 66 10^3/uL (150-450); RED BLOOD COUNT 2.13 10^6/uL (4.30-6.10); WHITE BLOOD COUNT 4.2 10^3/uL (4.0-10.0)
== END ==
LOC: SKLAB8 07:00
PROVIDERS: ATTEND Internal Medicine
DX: D46.9 Myelodysplastic syndrome, unspecified (principal); N18.3 Chronic kidney disease, stage 3 (moderate); N40.0 Benign prostatic hyperplasia without lower urinary tract symptoms; I48.0 Paroxysmal atrial fibrillation; I50.32 Chronic diastolic (congestive) heart failure

== ENCOUNTER → 2019-12-12 | Outpatient (REF) | payer OTHER ==
[~2019-12-12] MED LIST changes: +ACET650S3 PR; -AMLO10TA5 PO; +AMLO1TAB25 PO; +AMOX875T2 PO; +ANEC4CRE3 TOP; -ASPI81TA85 PO; +ASPI81TA86 PO; +ATIV1TAB10 PO; +ATRO1OPD SL; +BISA10SU4 PR; +CYAN100050 PO; +FERR1TAB8 PO; +FLEEENE12 PR; +FOLI1TAB11 PO; +HYDR-3715 PO; +HYOS125TA PO; +LACT20EL PO; +MAPA325T8 PO; +MELA1TAB9 PO; +MM S100C PO; +MOM30SS2 PO; +SCOP1PAT2 TOP; +SERO50TA PO; +ZOFR4TAB16 PO
== END ==
LOC: SKLAB8 07:00
PROVIDERS: ATTEND Internal Medicine
DX: Z53.9 Procedure and treatment not carried out, unspecified reason (principal)

== ENCOUNTER → 2019-12-26 | Outpatient (REF) | payer OTHER ==
[2019-12-26 08:51] LABS: HEMATOCRIT 23.8 % (42.0-52.0); HEMOGLOBIN 7.7 g/dl (13.5-17.5); MEAN CORPUSCULAR HEMOGLOBIN 33.3 pg (27.0-33.0); MEAN CORPUSCULAR HGB CONC 32.4 g/dl (32.0-36.5); RED BLOOD COUNT 2.31 10^6/uL (4.30-6.10); WHITE BLOOD COUNT 4.4 10^3/uL (4.0-10.0)
[2019-12-26 08:57] LABS: PLATELET COUNT, AUTOMATED 56 10^3/uL (150-450)
== END ==
LOC: SKLAB8 07:00
PROVIDERS: ATTEND Internal Medicine
DX: D64.9 Anemia, unspecified (principal)

== ENCOUNTER 2020-01-22 09:22 | Inpatient (IN) | payer OTHER, MEDICARE, MEDICAID ==
[~2020-01-22] VITALS: Ht 170.2 cm; Wt 77.3 kg
[~2020-01-22 09:22] MED LIST changes: -ACET650S3 PR; -AMOX875T2 PO; -ANEC4CRE3 TOP; -ATIV1TAB10 PO; -ATRO1OPD SL; -BISA10SU4 PR; -CYAN100050 PO; +ENOXAPARIN 30MG/0.3ML SYRINGE (J1650 PER 10MG) SC SCH; -FERR1TAB8 PO; -FLEEENE12 PR; -FOLI1TAB11 PO; -HYDR-3715 PO; -HYOS125TA PO; -LACT20EL PO; -MAPA325T8 PO; -MELA1TAB9 PO; -MM S100C PO; -MOM30SS2 PO; -SCOP1PAT2 TOP; -SERO50TA PO; -ZOFR4TAB16 PO
[2020-01-22] MEDS ORDERED: NS 1,000 ML IV SCH ×2 (09:33→13:00)
[2020-01-22] MEDS ORDERED: PIPERACILLIN/TAZOBACTAM SOD 3.375 GM in D5W MINI-BAG PLUS 50 ML IV ONE (09:45)
--- NOTE | 2020-01-22 10:31 | REPVR ---
PROCEDURE INFORMATION: Exam: CT Head Without Contrast Exam date and time: 01/22/2020 10:10 AM Age: 84 years old Clinical indication: Pain; Headache; Additional info: Altered mental status TECHNIQUE: Imaging protocol: Computed tomography of the head without contrast. Radiation optimization: All CT scans at this facility use at least one of these dose optimization techniques: automated exposure control; mA and/or kV adjustment per patient size (includes targeted exams where dose is matched to clinical indication); or iterative reconstruction. COMPARISON: CT Head without contrast 09/14/2019 5:12 PM FINDINGS: Brain: There is no acute intracranial hemorrhage. There is lucency in the cerebral white matter, likely microvascular disease although non-specific. Rodas white differentiation is intact. There are no extra-axial fluid collections. No evidence of mass. There is no mass effect or midline shift. Ventricles: The ventricles and sulci are enlarged, consistent with volume loss / atrophy. No hydrocephalus. Bones/joints: No acute fracture. Sinuses: Unremarkable as visualized. No acute sinusitis. Mastoid air cells: No significant mastoid effusion. Vasculature: There is vascular calcification. Soft tissues: Unremarkable as visualized. IMPRESSION: 1. No evidence of acute intracranial abnormality. No evidence of acute infarction, hemorrhage, or mass. 2. Atrophy and mild microvascular disease. Electronically signed by: Staci Ruano On 01/22/2020 10:31:36 AM
--- NOTE | 2020-01-22 10:40 | REPVR ---
PROCEDURE INFORMATION: Exam: XR Chest, 1 View Exam date and time: 01/22/2020 10:22 AM Age: 84 years old Clinical indication: Fever; Additional info: Altered mental status TECHNIQUE: Imaging protocol: XR of the chest Views: 1 view. COMPARISON: CR Chest, 1 view 09/15/2019 7:25 AM FINDINGS: Lungs: No consolidation. Pleural space: No significant visible pleural effusion. No pneumothorax. Heart/Mediastinum: No significant cardiomegaly. Bones/joints: Degenerative changes/spondylosis in spine. Degenerative changes shoulders with high-riding shoulders bilaterally. IMPRESSION: No acute cardiopulmonary finding. Electronically signed by: Staci Ruano On 01/22/2020 10:41:10 AM
[2020-01-22] MEDS ORDERED: ACET650S3 PR (11:02)
[2020-01-22] MEDS ORDERED: LACT20EL PO (11:02)
[2020-01-22] MEDS ORDERED: BISA10SU4 PR (11:02)
[2020-01-22] MEDS ORDERED: MOM30SS2 PO (11:02)
[2020-01-22] MEDS ORDERED: ATIV1TAB10 PO (11:02)
[2020-01-22] MEDS ORDERED: SERO50TA PO (11:02)
[2020-01-22] MEDS ORDERED: CYAN100050 PO (11:02)
[2020-01-22] MEDS ORDERED: ANEC4CRE3 TOP (11:02)
[2020-01-22] MEDS ORDERED: FLEEENE12 PR (11:02)
[2020-01-22] MEDS ORDERED: MELA1TAB9 PO (11:02)
[2020-01-22] MEDS ORDERED: MAPA325T8 PO (11:02)
[2020-01-22] MEDS ORDERED: MM S100C PO (11:13)
[2020-01-22 11:14] LABS: BASO % 0.1 % (0.0-1.0); HEMATOCRIT 24.7 % (42.0-52.0); HEMOGLOBIN 8.3 g/dl (13.5-17.5); LYMPH # 0.3 10^3/uL (1.5-5.0); LYMPH % 2.3 % (24.0-44.0); MEAN CORPUSCULAR HEMOGLOBIN 34.6 pg (27.0-33.0); MEAN CORPUSCULAR HGB CONC 33.6 g/dl (32.0-36.5); MEAN CORPUSCULAR VOLUME 102.9 fl (80.0-96.0); MONO # 1.1 10^3/uL (0.0-0.8); MONO % 8.3 % (0.0-5.0); NEUTROPHILS # 11.5 10^3/uL (1.5-8.5); NEUTROPHILS % 88.8 % (36.0-66.0); WHITE BLOOD COUNT 12.9 10^3/uL (4.0-10.0)
[2020-01-22 11:15] LABS: PLATELET COUNT, AUTOMATED 60 10^3/uL (150-450)
[2020-01-22 11:24] LABS: INR 1.5; PROTHROMBIN TIME 18.4 SECONDS (11.8-14.0)
[2020-01-22 11:25] LABS: PARTIAL THROMBOPLASTIN TIME 38.7 SECONDS (25.0-38.4)
[2020-01-22] MEDS ORDERED: hydrALAZINE 20MG/ML 1ML VIAL (J0360 PER 20MG) IV ONE (12:00)
[2020-01-22 12:09] LABS: ALBUMIN 3.2 GM/DL (3.2-5.2); ALT/SGPT 393 U/L (12-78); BILIRUBIN,DIRECT 2.6 MG/DL (0.0-0.2); CK-MB VALUE MASS < 1.0 NG/ML (<3.6); CPK CREATINE PHOSPHOKINASE 95 U/L (39-308); LIPASE 110 U/L (73-393); MB/CK RELATIVE INDEX 1.05 (< OR =4); TOTAL PROTEIN 6.1 GM/DL (6.4-8.2); TROPONIN I 0.02 NG/ML (< 0.10)
[2020-01-22] MEDS ORDERED: ISOVUE-370 76% 100ML VIAL As Ordered ONE (12:30)
[2020-01-22] MEDS ORDERED: ACETAMINOPHEN TAB 650MG DOSE (2X325MG) PO PRN (13:30)
[2020-01-22] MEDS ORDERED: LORazepam 2 MG/ML VIAL IV STA (13:37)
[2020-01-22] MEDS ORDERED: LORazepam 2 MG/ML VIAL As Ordered ONE (13:39)
--- NOTE | 2020-01-22 13:41 | HPEPDOC ---
General Date of Admission january 22, 2020 Date of Service: Jan 22, 2020 Primary Care Physician: A Chief Complaint fever Source: Family, correction records History of Present Illness Mr. Darden is a 84 year old man, alf jail resident, has known moderate to severe dementia, presented to hospital due to high grade fever [facility], which was apparently sudden onset, last night?. History is limited to jail records, ED physician and from patient's sister, leonard, of whom I spoke with at bedside. Patient's baseline mental state- awake, alert, oriented to self on occasion, but mostly poor memory. Needs assistance with ADLs. Does not walk much anymore. Patient was noted to be more lethargic, along with fever, thus sent to hospital. On arrival, temp was normal BP slightly low, given 100ml/hour normal saline. Lactic acid still pending. Zosyn started. elevated LFts, with hyperbilirubibenimia, informed Ed physician Dr. Rodas to add CT abdomen to current work-up as fever may likely be intraabdominal. CT abdomen done but still pending results. I saw patient in ED, sister at bedside. patient lethargic, respond to pain, when I examined his eyes, thats when he screamed and open his eyes and started becoming agitated but only briefly. No mention of any coughing, no dyspnea. No diarrhea, no vomiting noted. Home Medications Scheduled Aspirin (Aspirin EC) 81 Mg Tablet.dr, 81 MG PO DAILY, (Reported) Cyanocobalamin (Vitamin B-12) (Vitamin B-12) 1,000 Mcg Tablet, 1,000 MCG PO DAILY, (Reported) Docusate Sodium (Stool Softener) 100 Mg Capsule, 100 MG PO BID, (Reported) Lidocaine (Anecream) 4% Cream..g., 1 APLCT TOP BID, (Reported) APPLY TO RIGHT HIP Lorazepam (Ativan) 0.5 Mg Tablet, 0.25 MG PO BID, (Reported) Melatonin (Melatonin) 5 Mg Tablet, 5 MG PO QHS, (Reported) Quetiapine Fumarate (Seroquel) 50 Mg Tablet, 50 MG PO BID, (Reported) Terazosin Hcl (Terazosin HCl) 10 Mg Capsule, 10 MG PO QHS, (Reported) Scheduled PRN Acetaminophen (Mapap) 325 Mg Tablet, 650 MG PO Q4H PRN for PAIN, (Reported) Acetaminophen (Acetaminophen) 650 Mg Supp.rect, 650 MG NC Q4H PRN for DISCOMFORT, (Reported) Bisacodyl (Bisacodyl) 10 Mg Supp.rect, 10 MG NC DAILY PRN for CONSTIPATION, (Reported) Lactulose (Lactulose) 10 Gm/15 Ml Solution, 15 ML PO DAILY PRN for CONSTIPATION, (Reported) Magnesium Hydroxide (Milk of Magnesia) 400 Mg/5 Ml Oral.susp, 10 ML PO DAILY PRN for CONSTIPATION, (Reported) Sodium Phosphate,[place]-Dibasic (Fleet Enema) 133 Ml Enema, 1 SWEETIE NC DAILY PRN for CONSTIPATION, (Reported) Allergies Coded Allergies: No Known Allergies (Unverified , 08/01/13) Past Medical History Medical History Dementia Surgical History elbow surgery Family History Significant Family History: Noncontributory Social History * Smoker: non-smoker Alcohol: Denies Drugs: denies Recent Travel/Sick Contacts: Denies: Recent travel, Recent sick contacts lives in jail A-FIB/CHADSVASC A-FIB History Current/History of A-Fib/PAF?: No Vital Signs Vital Signs Date Time Temp Pulse Resp B/P (MAP) Pulse Ox O2 Delivery O2 Flow Rate FiO2 01/22/20 11:22 63 20 92/51 (65) 99 Room Air 01/22/20 09:55 98.4 lethargic elderly man, frail appearing, not in any distress. HEENT: slightly icteric sclerae, no nasal discharges, very dry mouth, no throat exudates noted. No ulceration noted. PERRLA, EOm cannot be fully examined NECK: supple, no rigidity, no tenderness noted, no bruits Chest: clear breath sounds, no rales or wheezing ntoed CVS: s1 ands 2 distinct, no murmurs, Abdomen: soft, noted tenderness on the left lower quadrant, no rigidity,n o rebound. grimaced when LLQ was touched. No lira's sign. 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 Psych cannot be evaluated due to current mental state. Laboratory Data Labs 24H Laboratory Tests 2 01/22/20 09:50: Immature Granulocyte % (Auto) 0.5, Neutrophils (%) (Auto) 88.8H, Lymphocytes (%) (Auto) 2.3L, Monocytes (%) (Auto) 8.3H, Eosinophils (%) (Auto) 0.0, Basophils (%) (Auto) 0.1, Neutrophils # (Auto) 11.5H, Lymphocytes # (Auto) 0.3L, Monocytes # (Auto) 1.1H, Eosinophils # (Auto) 0.0, Basophils # (Auto) 0.0, Nucleated Red Blood Cells % (auto) 0.0, Immature Platelet Fraction 11.1H, Prothrombin Time 18.4H, Prothromb Time International Ratio 1.50, Activated Partial Thromboplast Time 38.7H, Total Bilirubin 4.0H, Direct Bilirubin 2.6H, Aspartate Amino Transf (AST/SGOT) 301H, Alanine Aminotransferase (ALT/SGPT) 393H, Alkaline Phosphatase 376H, Ammonia 27, Total Creatine Kinase 95, Creatine Kinase MB < 1.0, Creatine Kinase MB Relative Index 1.05, Troponin I 0.02, Total Protein 6.1L, Albumin 3.2, Albumin/Globulin Ratio 1.1, Lipase 110, Thyroid Stimulating Hormone (TSH) 2.790 01/22/20 09:55: Urine Color CHANDNI, Urine Appearance CLEAR, Urine pH 5.0, Urine Specific Coker 1.015, Urine Protein NEGATIVE, Urine Glucose (UA) NEGATIVE, Urine Ketones NEGATIVE, Urine Blood NEGATIVE, Urine Nitrite NEGATIVE, Urine Bilirubin NEGATIVE, Urine Urobilinogen 4.0H, Urine Leukocyte Esterase NEGATIVE, Urine WBC (Auto) 2, Urine RBC (Auto) 2, Urine Hyaline Casts (Auto) 0, Urine Bacteria (Auto) NEGATIVE, Urine Squamous Epithelial Cells 0, Urine Mucus (Auto) SMALL, Urine Sperm (Auto) CBC/BMP Laboratory Tests 01/22/20 09:50 Microbiology Microbiology 01/22/20 Respiratory Virus Panel (PCR) ([facility]) - Final, Complete 01/22/20 Blood Culture, Received Pending 01/22/20 Blood Culture, Received Pending RAD Interpretation STUDY: CXR Rad Actions: Report Reviewed Assessment/Plan ASSESSMENT: 1. Acute metabolic encephalopathy due to fever 2. Elevated LFTs, and hyperbilirubinemia, a 3. dementia 4. Sepsis, mental status changes, fever, hypotension 5. Hypotension PLANS: * admit patient to med surg. patient should receive 1 liter IV bolus - ordered. patient received zosyn in ED, and will continue. * No known history of heart failure as per sister. Continue with IV fluids, aggressive fluid resuscitation. patient is quite dry. * Blood cultures. * CT abdomen and US abdomen were both ordered - pending results. Suspected intrabdominal source of fever. * depending on CT findings, may need to consult GI. * NPO for now, high aspiration risk. * condom cath/diaper. * High risk for decompensation and falls - due to sepsis, dementia. * repeat LFTs, check INR. lactic acid still pending. * plans discussed with patient's sister. Verified that patient is DNR/DNI, does not want ICU or central line placement. * Agree to continue on IV fluids and antibiotics. overall prognosis is guarded. * CODE: DNR/DNI * DVT: lovenox * Antibiotics: Zosyn x 7 days, or will de-escalate in 3 days if no growth. Plan / VTE VTE Prophylaxis Ordered?: Yes Plan IVF: Initiate Diet: Make NPO SUSAN LIVE MD Jan 22, 2020 13:40
[2020-01-22] MEDS: NS 1,000 ML IV SCH ×2 (13:53→18:14)
--- NOTE | 2020-01-22 14:09 | REPVR ---
PROCEDURE INFORMATION: Exam: CT Abdomen And Pelvis With Contrast Exam date and time: 01/22/2020 12:44 PM Age: 84 years old Clinical indication: Abdominal pain; Additional info: Elev lfs per hospitalist TECHNIQUE: Imaging protocol: Computed tomography of the abdomen and pelvis with intravenous contrast. Radiation optimization: All CT scans at this facility use at least one of these dose optimization techniques: automated exposure control; mA and/or kV adjustment per patient size (includes targeted exams where dose is matched to clinical indication); or iterative reconstruction. Contrast material: ISO 370; Contrast volume: 100 ml; Contrast route: INTRAVENOUS (IV); COMPARISON: CT ABD PELVIS W/O FOL BY WIT 09/10/2013 4:38 PM FINDINGS: Lungs: There is a minimal amount of right basilar atelectasis with a suspected small right left effusion but I cannot be certain due to the patient's arms and artifact. Liver: The liver demonstrates heterogeneous enhancement pattern however, I do not know if this is real or artifactual due to the arms. It is enlarged at 204 mm. Gallbladder and bile ducts: There are small stones in the gallbladder in this appears new. Pancreas: Normal. No ductal dilation. Spleen: There is new peripheral hypodensity in the spleen measuring 13 x 12 mm possibly a cyst. Adrenals: Normal. No mass. Kidneys and ureters: There is a stable appearing right upper pole renal cyst at 97 x 93 mm. There is a nonobstructing 2 mm right renal stone. Two cysts are seen in the upper pole the right kidney measuring up to 14 x 8 mm likely cysts. Stomach and bowel: Diverticula are seen in the colon. Appendix: The appendix is unremarkable. Intraperitoneal space: Unremarkable. No free air. No significant fluid collection. Vasculature: Unremarkable. No abdominal aortic aneurysm. Lymph nodes: Unremarkable. No enlarged lymph nodes. Bladder: Previously seen Day catheter is been removed. Reproductive: Unremarkable as visualized. Bones/joints: Arthritic changes with mild listhesis is stable in the spine. Arthritic changes are seen in the hips. This is more severe on the right advanced since the previous study. Soft tissues: Unremarkable. Other findings: There is extensive artifact from patient's arms scanned by his side. IMPRESSION: 1. Heterogeneous appearance to the liver possibly due to extensive artifact from the patient's arms. Liver masses or infiltrative process cannot be completely excluded. No large lesion is definitively seen. Hepatomegaly. 2. Renal cysts, likely Bosniak class 1. No further workup recommended. 3. Cholelithiasis. 4. Splenic hypodensity possibly a cyst. 5. Possible small effusions. 6. Nephrolithiasis without hydronephrosis. Electronically signed by: Andrea Webb On 01/22/2020 14:09:58 PM
--- NOTE | 2020-01-22 14:25 | REPVR ---
PROCEDURE INFORMATION: Exam: US Abdomen, Limited; Right Upper Quadrant Exam date and time: 01/22/2020 2:08 PM Age: 84 years old Clinical indication: Abnormal findings; Abnormal lab test; Elevated liver enzymes; Additional info: Elev lfts TECHNIQUE: Imaging protocol: US abdomen. Real time ultrasound with image documentation. Limited exam focused on the right upper quadrant. COMPARISON: CT ABD/PEL W/IV CONTRAST ONLY 01/22/2020 12:32 PM FINDINGS: Liver: The liver is fatty infiltrated slightly enlarged at 17.9 cm. There is no distinct mass noted. Gallbladder: The gallbladder wall is not thickened. There is no pericholecystic fluid however, there is sludge and gallstones. Common bile duct: Common bile duct is dilated at 1 cm. Pancreas: Pancreas cannot be seen due bowel gas. Right kidney: There is a 11.7 x 8.1 x 9.3 cm simple cyst in the upper pole the right kidney with a 12 mm 2nd cyst. There appears to be renal cortical thinning. IMPRESSION: 1. Sludge with biliary dilatation. No definite common bile duct stones. 2. Fatty liver without distinct mass is slightly enlarged. 3. Renal cysts. Electronically signed by: Andrea Webb On 01/22/2020 14:24:55 PM
[2020-01-22] MEDS ORDERED: NS 1,000 ML IV ONE ×2 (15:00→17:20)
[2020-01-22 16:30] VITALS: BP 91/36
[2020-01-22] MEDS ORDERED: ACETAMINOPHEN 650 MG SUPP PR PRN (17:15)
[2020-01-22] MEDS: PIPERACILLIN/TAZOBACTAM SOD 3.375 GM in D5W MINI-BAG PLUS 50 ML IV SCH ×2 (17:28→22:00)
[2020-01-22 19:32] LABS: ALBUMIN 2.7 GM/DL (3.2-5.2); BILIRUBIN,TOTAL 2.9 MG/DL (0.2-1.0); CALCIUM LEVEL 7.4 MG/DL (8.8-10.2); CREATININE FOR GFR 1.61 MG/DL (0.70-1.30); GLOMERULAR FILTRATION RATE 43.8 (>35); POTASSIUM SERUM 4.2 MEQ/L (3.5-5.1); TOTAL PROTEIN 5.2 GM/DL (6.4-8.2)
[2020-01-22 20:00] VITALS: BP 122/55
[2020-01-23] MEDS ORDERED: LORazepam 2 MG/ML VIAL IM STA (00:54)
[2020-01-23 04:00] VITALS: BP 124/64
[2020-01-23 05:51] LABS: HEMATOCRIT 21.2 % (42.0-52.0); MEAN CORPUSCULAR HEMOGLOBIN 34.8 pg (27.0-33.0); MEAN CORPUSCULAR VOLUME 105.5 fl (80.0-96.0); RED BLOOD COUNT 2.01 10^6/uL (4.30-6.10); WHITE BLOOD COUNT 6.4 10^3/uL (4.0-10.0)
[2020-01-23 05:52] LABS: PLATELET COUNT, AUTOMATED 43 10^3/uL (150-450)
[2020-01-23] MEDS: NS 1,000 ML IV SCH ×3 (05:54→14:20)
[2020-01-23] MEDS: PIPERACILLIN/TAZOBACTAM SOD 3.375 GM in D5W MINI-BAG PLUS 50 ML IV SCH ×4 (05:54→21:45)
[2020-01-23 06:20] LABS: ALBUMIN 2.5 GM/DL (3.2-5.2); BILIRUBIN,TOTAL 1.6 MG/DL (0.2-1.0); CALCIUM LEVEL 7.3 MG/DL (8.8-10.2); CREATININE FOR GFR 1.54 MG/DL (0.70-1.30); GLOMERULAR FILTRATION RATE 46.2 (>35); MAGNESIUM LEVEL 1.8 MG/DL (1.8-2.4); POTASSIUM SERUM 3.9 MEQ/L (3.5-5.1)
[2020-01-23 08:00] VITALS: BP 111/58
[2020-01-23] MEDS: ASPIRIN 81 MG ENTERIC TAB PO SCH (09:00)
[2020-01-23 12:00] VITALS: BP 114/79
[2020-01-23] MEDS: LORazepam 2 MG/ML VIAL IV PRN ×2 (14:25→19:04)
--- NOTE | 2020-01-23 15:12 | IPNPDOC ---
Subjective Date Seen The patient was seen on 01/23/20. Subjective Chief Complaint/HPI agitated Events since last encounter patient's Bp had stabilized overnight. bUt had been quite agitated, that ativan had to be given. I saw patient this morning, he is more responsive now, and able to answer when called. he gets really agitated when touched anywhere. when I asked him if I can examien him, he said no. He had been kicking a lot and hitting nurses. had to be placed on mittens. Objective Physical Examination Other physical findings more awake, more responsive elderly man, frail appearing, not in any distress. HEENT: slightly icteric sclerae, no nasal discharges, very dry mouth, no throat exudates noted. No ulceration noted. PERRLA, EOm cannot be fully examined NECK: supple, no rigidity, no tenderness noted, no bruits Chest: clear breath sounds, no rales or wheezing ntoed CVS: s1 ands 2 distinct, no murmurs, Abdomen: soft, noted tenderness on the left lower quadrant, no rigidity,n o rebound. grimaced when LLQ was touched. No lira's sign. 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 Psych cannot be evaluated due to current mental state. ASSESSMENT: 1. Acute metabolic encephalopathy due to fever 2. Elevated LFTs, and hyperbilirubinemia, noted gallbladder sludge with hyperbilirubinemia, with biliary dilatation, no cholecystitis on Ultrasound 3. dementia 4. Sepsis, mental status changes, fever, hypotension 5. Hypotension due to sepsis, severe, improved PLANS: fever has subsided. Lfts also trending down. No gallbladder wall thickening. continue empiric zosyn for now. IV fluids. no invasive procedure as per his POA. Will continue current management of fluids and antibiotics. Will advance diet after speech evaluates patient. ativan as needed only for severe agitation, avoid as much as possible, due to risk for delirium. He was mostly closely his eyes when I saw him today. will slowly resume oral meds once able to be more awake. Called patient's sister, Sandra, no answer, left voicemail DNR/DNi high risk D/c lovenox due to thrombocytopenia SCD/TEDS Assessment /Plan Plan/VTE VTE Prophylaxis Ordered?: No VTE Exclusion Mechanical Proph: Other (thrombocytopenia) VS, I&O, 24H, Fishbone Vital Signs/I&O Vital Signs Date Time Temp Pulse Resp B/P (MAP) Pulse Ox O2 Delivery O2 Flow Rate FiO2 01/23/20 12:00 97.7 106 18 114/79 (91) 92 Room Air I&O- Last 24 Hours up to 6 AM 01/23/20 06:00 Intake Total 3600 ml Output Total 250 ml Balance 3350 ml Laboratory Data 24H LABS Laboratory Tests 2 01/22/20 18:05: Anion Gap 4L, Glomerular Filtration Rate 43.8, Lactic Acid Level 2.0, Calcium Level 7.4L, Total Bilirubin 2.9H, Aspartate Amino Transf (AST/SGOT) 160H, Al anine Aminotransferase (ALT/SGPT) 276H, Alkaline Phosphatase 287H, Total Protein 5.2L, Albumin 2.7L, Albumin/Globulin Ratio 1.1 01/23/20 05:30: Anion Gap 2L, Glomerular Filtration Rate 46.2, Calcium Level 7.3L, Total Bilirubin 1.6H, Aspartate Amino Transf (AST/SGOT) 95H, Alanine Aminotransferase (ALT/SGPT) 198H, Alkaline Phosphatase 233H, Total Protein 5.0L, Albumin 2.5L, Albumin/Globulin Ratio 1.0, Nucleated Red Blood Cells % (auto) 0.0, Magnesium Level 1.8 01/23/20 05:32: Lactic Acid Level 0.7 CBC/BMP Laboratory Tests 01/22/20 18:05 01/23/20 05:30 Microbiology Microbiology 01/22/20 Respiratory Virus Panel (PCR) ([facility]) - Final, Complete 01/22/20 Blood Culture - Preliminary, Resulted No growth after 24 hours . All specim... 01/22/20 Blood Culture - Preliminary, Resulted No growth after 24 hours . All specim... SUSAN LIVE MD Jan 23, 2020 15:12
[2020-01-23 16:00] VITALS: BP 100/58
[2020-01-23] MEDS ORDERED: LACTULOSE 20 GM/30 ML SYRUP UD PO PRN (16:15)
[2020-01-23] MEDS ORDERED: BISACODYL 10 MG SUPP PR PRN (16:15)
[2020-01-23 20:00] VITALS: BP 125/66
[2020-01-23] MEDS: DOCUSATE SODIUM 100 MG CAP PO SCH (21:00)
[2020-01-23] MEDS: TERAZOSIN 5 MG CAP PO SCH (21:45)
[2020-01-23] MEDS: QUEtiapine FUMARATE 50 MG TAB PO SCH (21:45)
[2020-01-24] VITALS: BP 152/73
[2020-01-24] MEDS: NS 1,000 ML IV SCH ×3 (01:01→13:43)
[2020-01-24 04:00] VITALS: BP 124/60
[2020-01-24] MEDS: PIPERACILLIN/TAZOBACTAM SOD 3.375 GM in D5W MINI-BAG PLUS 50 ML IV SCH ×4 (04:54→21:35)
[2020-01-24 04:58] LABS: HEMATOCRIT 21.9 % (42.0-52.0); HEMOGLOBIN 7.1 g/dl (13.5-17.5); MEAN CORPUSCULAR HEMOGLOBIN 33.5 pg (27.0-33.0); MEAN CORPUSCULAR HGB CONC 32.4 g/dl (32.0-36.5); MEAN CORPUSCULAR VOLUME 103.3 fl (80.0-96.0); RED BLOOD COUNT 2.12 10^6/uL (4.30-6.10); WHITE BLOOD COUNT 3.5 10^3/uL (4.0-10.0)
[2020-01-24 05:01] LABS: PLATELET COUNT, AUTOMATED 41 10^3/uL (150-450)
[2020-01-24 05:24] LABS: ALBUMIN 2.5 GM/DL (3.2-5.2); BILIRUBIN,TOTAL 1.3 MG/DL (0.2-1.0); CALCIUM LEVEL 7.5 MG/DL (8.8-10.2); CREATININE FOR GFR 1.41 MG/DL (0.70-1.30); GLOMERULAR FILTRATION RATE 51.1 (>35); POTASSIUM SERUM 3.5 MEQ/L (3.5-5.1); TOTAL PROTEIN 5.4 GM/DL (6.4-8.2)
[2020-01-24 08:00] VITALS: BP 100/50
[2020-01-24] MEDS: DOCUSATE SODIUM 100 MG CAP PO SCH ×2 (09:00→21:36)
[2020-01-24] MEDS: ASPIRIN 81 MG ENTERIC TAB PO SCH (09:08)
[2020-01-24] MEDS: QUEtiapine FUMARATE 50 MG TAB PO SCH (09:08)
[2020-01-24] MEDS: LORazepam 2 MG/ML VIAL IV PRN (09:51)
[2020-01-24 12:00] VITALS: BP 142/60
[2020-01-24 16:00] VITALS: BP 160/78
--- NOTE | 2020-01-24 16:05 | IPNPDOC ---
Text Note Date of Service The patient was seen on 01/24/20. NOTE patient became agitated today, given a dose of ativan. But had an uneventful night. patient was resting when I saw him, he does respond when called, and answer to yes or no, but does not open his eyes. Objective Physical Examination Vital Sign - Last 24 Hours 01/23/20 01/23/20 01/23/20 01/24/20 16:00 20:00 21:45 00:00 Temp 98.1 98.2 98.4 Pulse 68 78 80 Resp 20 18 16 B/P (MAP) 100/58 (72) 125/66 (85) 125/66 152/73 (99) Pulse Ox 100 96 93 O2 Delivery Room Air Room Air Room Air 01/24/20 01/24/20 01/24/20 01/24/20 04:00 08:00 08:00 12:00 Temp 97.6 99.2 99.2 98.2 Pulse 64 68 68 57 Resp 18 18 18 16 B/P (MAP) 124/60 (81) 100/50 (67) 100/50 (67) 142/60 (87) Pulse Ox 95 97 97 98 O2 Delivery Room Air Room Air Room Air Room Air resting, respond by answerin question but not opening his eyes. He just got his ativan HEENT: slightly icteric sclerae, no nasal discharges, very dry mouth, no throat exudates noted. No ulceration noted. PERRLA, EOm cannot be fully examined NECK: supple, no rigidity, no tenderness noted, no bruits Chest: clear breath sounds, no rales or wheezing noted CVS: s1 ands 2 distinct, no murmurs, Abdomen: soft, noted tenderness on the left lower quadrant, no rigidity,n o rebound. grimaced when LLQ was touched. No lira's sign. 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 Psych cannot be evaluated due to current mental state. ASSESSMENT: 1. Acute metabolic encephalopathy due to fever, imrpoved 2. Elevated LFTs, and hyperbilirubinemia, noted gallbladder sludge with hyperbilirubinemia, with biliary dilatation, no cholecystitis on Ultrasound 3. dementia 4. Sepsis, mental status changes, fever, hypotension 5. Hypotension due to sepsis, severe, improved PLANS: * LFts trending down, no recurrence of fever. antibiotics to continue, fluids d/c as patient has been tolerating diet so far. * will low seroquel dose. use ativan only sparingly. * plans discussed with patient's sister on phone. * if LFts continue to trend down, no further fever, the anticipate discharge back to SNF. * DNR/Dni VS,Fishbone, I+O VS, Fishbone, I+O Laboratory Tests 01/24/20 04:15 Vital Signs Date Time Temp Pulse Resp B/P (MAP) Pulse Ox O2 Delivery O2 Flow Rate FiO2 01/24/20 12:00 98.2 57 16 142/60 (87) 98 Room Air I&O- Last 24 Hours up to 6 AM 01/24/20 06:00 Intake Total 120 ml Output Total 0 ml Balance 120 ml SUSAN LIVE MD Jan 24, 2020 15:46
[2020-01-24 20:00] VITALS: BP 178/81
[2020-01-24] MEDS: TERAZOSIN 5 MG CAP PO SCH (21:36)
[2020-01-24] MEDS: QUEtiapine FUMARATE 25 MG TAB PO SCH (21:36)
[2020-01-25] VITALS: BP 128/68
[2020-01-25 04:00] VITALS: BP 167/77
[2020-01-25] MEDS: PIPERACILLIN/TAZOBACTAM SOD 3.375 GM in D5W MINI-BAG PLUS 50 ML IV SCH ×2 (04:39→09:15)
[2020-01-25 08:00] VITALS: BP 148/83
[2020-01-25] MEDS: NS 1,000 ML IV SCH ×2 (09:16→19:11)
[2020-01-25] MEDS: QUEtiapine FUMARATE 25 MG TAB PO SCH ×2 (09:16→19:43)
[2020-01-25] MEDS: ASPIRIN 81 MG ENTERIC TAB PO SCH (09:16)
[2020-01-25] MEDS: DOCUSATE SODIUM 100 MG CAP PO SCH ×2 (09:16→19:43)
[2020-01-25 09:35] LABS: HEMATOCRIT 23.3 % (42.0-52.0); HEMOGLOBIN 7.6 g/dl (13.5-17.5); MEAN CORPUSCULAR HEMOGLOBIN 34.1 pg (27.0-33.0); MEAN CORPUSCULAR HGB CONC 32.6 g/dl (32.0-36.5); MEAN CORPUSCULAR VOLUME 104.5 fl (80.0-96.0); RED BLOOD COUNT 2.23 10^6/uL (4.30-6.10); WHITE BLOOD COUNT 2.5 10^3/uL (4.0-10.0)
[2020-01-25 09:36] LABS: PLATELET COUNT, AUTOMATED 36 10^3/uL (150-450)
--- NOTE | 2020-01-25 09:49 | IPNPDOC ---
Text Note Date of Service The patient was seen on 01/25/20. NOTE patient is more awake today, follows simple commands noted. denies any pain. Do es not like his legs uncovered, but not any pain. No dyspnea, no cough Vital Sign - Last 24 Hours 01/24/20 01/24/20 01/24/20 01/24/20 12:00 16:00 20:00 21:36 Temp 98.2 98.7 98.9 Pulse 57 65 83 Resp 16 18 20 B/P (MAP) 142/60 (87) 160/78 (105) 178/81 (113) 178/81 Pulse Ox 98 98 96 O2 Delivery Room Air Room Air Room Air 01/25/20 01/25/20 01/25/20 00:00 04:00 08:00 Temp 98.7 99.1 97.9 Pulse 61 58 77 Resp 16 16 20 B/P (MAP) 128/68 (88) 167/77 (107) 148/83 (104) Pulse Ox 95 96 98 O2 Delivery Room Air Room Air Room Air patient is more awake, able to talk to me, able to follow simple commands HEENT: slightly icteric sclerae, no nasal discharges, very dry mouth, no throat exudates noted. No ulceration noted. PERRLA, EOm cannot be fully examined NECK: supple, no rigidity, no tenderness noted, no bruits Chest: clear breath sounds, no rales or wheezing noted CVS: s1 ands 2 distinct, no murmurs, Abdomen: soft, noted tenderness on the left lower quadrant, no rigidity,n o rebound. grimaced when LLQ was touched. No lira's sign. 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 Psych cannot be evaluated due to current mental state. Laboratory Tests 01/24/20 04:15 01/25/20 09:00 pending CMP ASSESSMENT: 1. Acute metabolic encephalopathy due to fever,improved 2. Elevated LFTs, and hyperbilirubinemia, noted gallbladder sludge with hyperbilirubinemia, with biliary dilatation, no cholecystitis on Ultrasound 3. dementia 4. severe Sepsis, mental status changes, fever, hypotension 5. Hypotension due to sepsis, severe, improved PLANS: * overall improving, with occasional agitation that he requires ativan. Seroquel dose decrease to 25 mg PO BID. * Ativan to be used sparingly. * No more fever, will follow up CMP to check if LFts trending down. * will continue IV fluids for now. * continue diet. * should be able to anticipate discharge back to SNF on monday, will do covid test 24-48 hours prior to discharge. * cotninue with antibiotics, will change to PO tomorrow. * DNR/DNI VS,Fishbone, I+O VS, Fishbone, I+O Laboratory Tests 01/25/20 09:00 Vital Signs Date Time Temp Pulse Resp B/P (MAP) Pulse Ox O2 Delivery O2 Flow Rate FiO2 01/25/20 08:00 97.9 77 20 148/83 (104) 98 Room Air I&O- Last 24 Hours up to 6 AM 01/25/20 05:59 Intake Total 1240 ml Output Total 0 ml Balance 1240 ml SUSAN LIVE MD Jan 25, 2020 09:49
[2020-01-25 10:27] LABS: ALBUMIN 2.7 GM/DL (3.2-5.2); ALT/SGPT 94 U/L (12-78); BILIRUBIN,TOTAL 1.2 MG/DL (0.2-1.0); BLOOD UREA NITROGEN 15 MG/DL (7-18); CALCIUM LEVEL 7.7 MG/DL (8.8-10.2); CARBON DIOXIDE LEVEL 23 MEQ/L (21-32); CHLORIDE LEVEL 119 MEQ/L (98-107); CREATININE FOR GFR 1.32 MG/DL (0.70-1.30); GLOMERULAR FILTRATION RATE 55.1 (>35); GLUCOSE, FASTING 93 MG/DL (70-100); POTASSIUM SERUM 3.6 MEQ/L (3.5-5.1); SODIUM LEVEL 146 MEQ/L (136-145); TOTAL PROTEIN 5.4 GM/DL (6.4-8.2)
[2020-01-25] MEDS: LORazepam 2 MG/ML VIAL IV PRN (11:01)
[2020-01-25 11:30] VITALS: BP 125/67
[2020-01-25 14:00] VITALS: BP 132/67
[2020-01-25] MEDS: AUGMENTIN 875 MG TAB PO SCH (19:43)
[2020-01-25] MEDS: TERAZOSIN 5 MG CAP PO SCH (19:43)
[2020-01-25 22:00] VITALS: BP 157/78
[2020-01-26 02:00] VITALS: BP 131/71
[2020-01-26] MEDS: QUEtiapine FUMARATE 25 MG TAB PO SCH ×2 (08:56→21:20)
[2020-01-26] MEDS: AUGMENTIN 875 MG TAB PO SCH ×2 (08:56→21:20)
[2020-01-26] MEDS: DOCUSATE SODIUM 100 MG CAP PO SCH ×2 (08:56→21:00)
[2020-01-26] MEDS: ASPIRIN 81 MG ENTERIC TAB PO SCH (08:57)
--- NOTE | 2020-01-26 09:52 | IPNPDOC ---
Text Note Date of Service The patient was seen on 01/26/20. NOTE patient seen this morning, awake, alert, pleasant, able to converse,still some what confused, likely his baseline. denies any chest pain, no vomiting. Oriented to self only, Noted right eye has some blood beneath right eye, denies any pain, no bruising, ? may have scratched it or due to his glasses? No blurring of vision. follows commands well today Vital Sign - Last 24 Hours 01/25/20 01/25/20 01/25/20 01/25/20 11:30 14:00 19:43 22:00 Temp 98.7 98.7 98.5 Pulse 60 60 59 Resp 19 19 18 B/P (MAP) 125/67 (86) 132/67 (88) 157/78 157/78 (104) Pulse Ox 99 99 O2 Delivery Room Air Room Air Room Air 01/26/20 02:00 Temp 97.8 Pulse 64 Resp 20 B/P (MAP) 131/71 (91) Pulse Ox 97 O2 Delivery Room Air patient is more awake, able to talk to me, able to follow simple commands HEENT: slightly icteric sclerae, no nasal discharges, very dry mouth, no throat exudates noted. No ulceration noted. PERRLA, EOm cannot be fully examined NECK: supple, no rigidity, no tenderness noted, no bruits Chest: clear breath sounds, no rales or wheezing noted CVS: s1 ands 2 distinct, no murmurs, Abdomen: soft, noted tenderness on the left lower quadrant, no rigidity,n o rebound. grimaced when LLQ was touched. No lira's sign. 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 Psych cannot be evaluated due to current mental state. Laboratory Tests 01/25/20 09:00 ASSESSMENT: 1. Acute metabolic encephalopathy due to fever,improved 2. Elevated LFTs, and hyperbilirubinemia, noted gallbladder sludge with hyperbilirubinemia, with biliary dilatation, no cholecystitis on Ultrasound 3. dementia 4. severe Sepsis, mental status changes, fever, hypotension 5. Hypotension due to sepsis, severe, improved 6. Pancytopenia, has history of recurrent anemia PLANS: * i have discussed with patient's sister, Sandra, regarding labs noted above. She had told me that patient had been seen in longterm provider and had been worked ip and supposed to be scheduled for outpatient hematology and patient had recurrent transfusions before. and there was supposed to be planned for bone marrow biopsy,or bone scan? she is not quite certain, but has been on hold due to covid. * No active bleeding at present. patient's sister does not want to proceed for any aggressive or invasive procedure at present. * She mentioned Gillian Yates- provider at [facility] mention this plan to her? will attempt to give her a call tomorrow and discuss. * d/c fluids. antibiotic changed to PO, no abdominal pain, anticipate discharge to [facility] in AM. * DNR/DNI * avoid antiplatelet and anticoagulation due to anemia and low platelet. transfuse <7. VS,Fishbone, I+O VS, Fishbone, I+O Vital Signs Date Time Temp Pulse Resp B/P (MAP) Pulse Ox O2 Delivery O2 Flow Rate FiO2 01/26/20 02:00 97.8 64 20 131/71 (91) 97 Room Air I&O- Last 24 Hours up to 6 AM 01/26/20 06:00 Intake Total 560 ml Output Total 250 ml Balance 310 ml SUSAN LIVE MD Jan 26, 2020 09:52
[2020-01-26] MEDS: BACITRACIN OINTMENT 30GM TUBE TOP SCH (13:17)
[2020-01-26 14:00] VITALS: BP 163/75
[2020-01-26] MEDS: LORazepam 2 MG/ML VIAL IV PRN ×2 (15:23→18:57)
[2020-01-26 21:21] VITALS: BP 154/68
[2020-01-26] MEDS: TERAZOSIN 5 MG CAP PO SCH (21:21)
[2020-01-26 22:00] VITALS: BP 164/88
[2020-01-27 02:00] VITALS: BP 149/78
[2020-01-27 06:00] VITALS: BP 158/76
[2020-01-27] MEDS: AUGMENTIN 875 MG TAB PO SCH (09:11)
[2020-01-27] MEDS: ASPIRIN 81 MG ENTERIC TAB PO SCH (09:11)
[2020-01-27] MEDS: DOCUSATE SODIUM 100 MG CAP PO SCH (09:11)
[2020-01-27] MEDS: QUEtiapine FUMARATE 25 MG TAB PO SCH (09:11)
[2020-01-27] MEDS: BACITRACIN OINTMENT 30GM TUBE TOP SCH (09:12)
[2020-01-27 10:00] VITALS: BP 159/81
[2020-01-27] MEDS ORDERED: AMOX875T2 PO (10:35)
[2020-01-27] MEDS ORDERED: QUET1TAB7 PO (10:35)
[2020-01-27 12:20] LABS: VITAMIN B12 LEVEL > 2000 PG/ML (247-911)
[2020-01-27 12:28] LABS: HEPATITIS B SURFACE ANTIGEN NEGATIVE (NEGATIVE)
[2020-01-27 12:52] LABS: HEPATITIS B CORE ANTIBODY IGM NEGATIVE (NEGATIVE); HEPATITIS C VIRUS ABY INDEX 0.3 INDEX (<0.8)
[2020-01-27 15:47] LABS: FOLATE 5.2 NG/ML (>5.4); HEPATITIS A ANTIBODY IGM NEGATIVE (NEGATIVE)
--- NOTE | 2020-01-27 19:20 | DS.PDOC ---
Discharge Summary General Date of Admission Jan 22, 2020 at 13:29 Date of Discharge january 27, 2020 Discharge Summary PROCEDURES PERFORMED DURING STAY: [None] ADMITTING DIAGNOSES: fever DISCHARGE DIAGNOSES: 1. Acute metabolic encephalopathy due to fever,improved 2. Elevated LFTs, and hyperbilirubinemia, noted gallbladder sludge with hyperbilirubinemia, with biliary dilatation, no cholecystitis on Ultrasound 3. dementia 4. severe Sepsis, mental status changes, fever, hypotension 5. Hypotension due to sepsis, severe, improved 6. Pancytopenia, has history of recurrent anemia, with history of Myelodysplastic syndrome, COMPLICATIONS/CHIEF COMPLAINT: FEVER. HISTORY OF PRESENT ILLNESS: fever, HOSPITAL COURSE: Mr. Darden is a 84 year old man from [facility], with known history of dementia, presented to hospital due to fever and worsening confusion. noted elevated lfts, and work-up revealed gallbladder sludge, no stones, ,dilated bile duct, but no CBD dilatation. Patient was empirically started on zosyn and IV fluids. Due to his dementia, discussions were made with patient's sister, and does not want anything invasive done. No abdominal pain or tenderness. Patient's fever subsided and lfts are now trending down, his confusion has significantly improved and back at his baseline. also noted that he has pancytopenia, I called his PCP Dr. Gillian Yates, and her associate told me today that patient had been dx with MDS, and had history of transfusion. Sister mentined that there was plans for bone scan?? or bonemarrow biopsy, although sister does not want biopsy or invasive procedure done due to patient's overall condition. Patient had improved, thus he is being [facility]. I saw him this morning and doing well, eating well, awake, alert, follows commands, but mostly close his eyes and only opens them when he wants. Denies any pain. Patient stable for discharge. Sandra, his sister, made aware. DISCHARGE MEDICATIONS: Please see below. ALLERGIES: Please see below. PHYSICAL EXAMINATION ON DISCHARGE: Vital Sign - Last 24 Hours 01/26/20 01/26/20 01/27/20 01/27/20 21:21 22:00 02:00 06:00 Temp 98.4 97.6 98.1 Pulse 59 60 56 Resp 18 18 20 B/P (MAP) 154/68 164/88 (113) 149/78 (101) 158/76 (103) Pulse Ox 95 96 94 O2 Delivery Room Air Room Air Room Air 01/27/20 10:00 Pulse 63 Resp 18 B/P (MAP) 159/81 (107) patient is more awake, able to talk to me, able to follow simple commands HEENT: slightly icteric sclerae, no nasal discharges, very dry mouth, no throat exudates noted. No ulceration noted. PERRLA, EOm cannot be fully examined NECK: supple, no rigidity, no tenderness noted, no bruits Chest: clear breath sounds, no rales or wheezing noted CVS: s1 ands 2 distinct, no murmurs, Abdomen: soft, noted tenderness on the left lower quadrant, no rigidity,n o rebound. grimaced when LLQ was touched. No lira's sign. 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 Psych cannot be evaluated due to current mental state. LABORATORY DATA: Please see below. IMAGING: Us abdomen, CT abdomen , CT head, cxr PROGNOSIS: guarded ACTIVITY: with assistance with ADLs, DIET: pureed diet DISCHARGE PLANS: DISPOSITION: [facility]. DISCHARGE INSTRUCTIONS: 1. seroquel dose decrease 25 mg PO BID from 50 mg PO BID 2. No invasive procedure.DNR.DNI ITEMS TO FOLLOWUP ON ON OUTPATIENT: 1. ff-up with PCP Dr. Yates DISCHARGE CONDITION: Stable TIME SPENT ON DISCHARGE: 40 minutes Vital Signs/I&Os Vital Signs Date Time Temp Pulse Resp B/P (MAP) Pulse Ox O2 Delivery O2 Flow Rate FiO2 01/27/20 10:00 63 18 159/81 (107) 01/27/20 06:00 98.1 94 Room Air I&O- Last 24 Hours up to 6 AM 01/27/20 06:00 Intake Total 600 ml Output Total 950 ml Balance -350 ml Microbiology Microbiology 01/27/20 Respiratory Virus Panel (PCR) (CORINNA) - Final, Complete 01/22/20 Respiratory Virus Panel (PCR) ([facility]INNA) - Final, Complete 01/22/20 Blood Culture - Final, Complete NO GROWTH AFTER 5 DAYS 01/22/20 Blood Culture - Final, Complete NO GROWTH AFTER 5 DAYS Discharge Medications Scheduled Amoxicillin/Potassium Clav (Amox-Clav 875-125 mg Tablet) 1 Each Tablet, 875 MG PO BID Aspirin (Aspirin EC) 81 Mg Tablet.dr, 81 MG PO DAILY, (Reported) Cyanocobalamin (Vitamin B-12) (Vitamin B-12) 1,000 Mcg Tablet, 1,000 MCG PO DAILY, (Reported) Docusate Sodium (Stool Softener) 100 Mg Capsule, 100 MG PO BID, (Reported) Lidocaine (Anecream) 4% Cream..g., 1 APLCT TOP BID, (Reported) APPLY TO RIGHT HIP Lorazepam (Ativan) 0.5 Mg Tablet, 0.25 MG PO BID, (Reported) Melatonin (Melatonin) 5 Mg Tablet, 5 MG PO QHS, (Reported) Quetiapine Fumarate (Quetiapine Fumarate) 25 Mg Tablet, 25 MG PO BID Terazosin Hcl (Terazosin HCl) 10 Mg Capsule, 10 MG PO QHS, (Reported) Scheduled PRN Acetaminophen (Mapap) 325 Mg Tablet, 650 MG PO Q4H PRN for PAIN, (Reported) Acetaminophen (Acetaminophen) 650 Mg Supp.rect, 650 MG MA Q4H PRN for DISCOMFORT, (Reported) Bisacodyl (Bisacodyl) 10 Mg Supp.rect, 10 MG MA DAILY PRN for CONSTIPATION, (Reported) Lactulose (Lactulose) 10 Gm/15 Ml Solution, 15 ML PO DAILY PRN for CONSTIPATION, (Reported) Magnesium Hydroxide (Milk of Magnesia) 400 Mg/5 Ml Oral.susp, 10 ML PO DAILY PRN for CONSTIPATION, (Reported) Sodium Phosphate,Mason-Dibasic (Fleet Enema) 133 Ml Enema, 1 SWEETIE MA DAILY PRN for CONSTIPATION, (Reported) Allergies Coded Allergies: No Known Allergies (Unverified , 08/01/13) SUSAN LIVE MD Jan 27, 2020 19:20
--- NOTE | 2020-02-12 15:04 | ECGEPIP ---
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
== END 2020-01-27 11:30 | DRG 871 ==
LOC: EDBD 09:22 → M ED 09:22 → M ED INP 13:29 → M MSPAV 16:25 → M PCU 18:24 → M MS5PR 01-25 11:30
PROVIDERS: ADMIT Internal Medicine; ATTEND Internal Medicine
DX: A41.9 Sepsis, unspecified organism (principal); G93.41 Metabolic encephalopathy; D61.818 Other pancytopenia; R17 Unspecified jaundice; F03.90 Unspecified dementia, unspecified severity, without behavioral disturbance, psychotic disturbance, mood disturbance, and anxiety; Z79.899 Other long term (current) drug therapy; Z79.82 Long term (current) use of aspirin; K87 Disorders of gallbladder, biliary tract and pancreas in diseases classified elsewhere

== ENCOUNTER → 2020-02-05 | Outpatient (REF) | payer MEDICAID, MEDICARE, OTHER ==
[2020-02-04 08:41] LABS: ALBUMIN 2.8 GM/DL (3.2-5.2); ALT/SGPT 25 U/L (12-78); BILIRUBIN,TOTAL 0.9 MG/DL (0.2-1.0); BLOOD UREA NITROGEN 17 MG/DL (7-18); CALCIUM LEVEL 8.3 MG/DL (8.8-10.2); CARBON DIOXIDE LEVEL 27 MEQ/L (21-32); CHLORIDE LEVEL 114 MEQ/L (98-107); CREATININE FOR GFR 1.04 MG/DL (0.70-1.30); GLOMERULAR FILTRATION RATE > 60.0 (>35); GLUCOSE, FASTING 86 MG/DL (70-100); SODIUM LEVEL 147 MEQ/L (136-145); TOTAL PROTEIN 5.3 GM/DL (6.4-8.2)
[~2020-02-05] MED LIST changes: +ACET650S3 PR; +AMOX875T2 PO; +ANEC4CRE3 TOP; +ATIV1TAB10 PO; +ATRO1OPD SL; +BISA10SU4 PR; +CYAN100050 PO; -ENOXAPARIN 30MG/0.3ML SYRINGE (J1650 PER 10MG) SC SCH; +FERR1TAB8 PO; +FLEEENE12 PR; +FOLI1TAB11 PO; +HYDR-3715 PO; +HYOS125TA PO; +LACT20EL PO; +MAPA325T8 PO; +MELA1TAB9 PO; +MM S100C PO; +MOM30SS2 PO; +SCOP1PAT2 TOP; +SERO50TA PO; +ZOFR4TAB16 PO
[2020-02-05 14:51] LABS: BASO % 0.8 % (0.0-1.0); EOS # 0.1 10^3/uL (0.0-0.5); EOS % 5.3 % (0.0-3.0); HEMATOCRIT 24.3 % (42.0-52.0); HEMOGLOBIN 7.8 g/dl (13.5-17.5); LYMPH # 0.8 10^3/uL (1.5-5.0); LYMPH % 30.7 % (24.0-44.0); MEAN CORPUSCULAR HEMOGLOBIN 33.8 pg (27.0-33.0); MEAN CORPUSCULAR HGB CONC 32.1 g/dl (32.0-36.5); MEAN CORPUSCULAR VOLUME 105.2 fl (80.0-96.0); MONO # 0.2 10^3/uL (0.0-0.8); MONO % 6.4 % (0.0-5.0); NEUTROPHILS # 1.5 10^3/uL (1.5-8.5); NEUTROPHILS % 56.4 % (36.0-66.0); RED BLOOD COUNT 2.31 10^6/uL (4.30-6.10); WHITE BLOOD COUNT 2.6 10^3/uL (4.0-10.0)
[2020-02-05 15:24] LABS: PLATELET COUNT, AUTOMATED 56 10^3/uL (150-450)
[2020-02-05 15:31] LABS: FERRITIN 1189 NG/ML (26-388); IMMUNOGLOBULIN G 1130 MG/DL (681-1648); IMMUNOGLOBULIN M 32.2 MG/DL (40-230); LDH LACTATE DEHYDROGENASE 131 U/L (87-241); RHEUMATOID FACTOR QUANT 28.1 IU/ML (<15.0); URIC ACID 8.5 MG/DL (3.5-7.2)
[2020-02-05 16:03] LABS: HEPATITIS C VIRUS ABY INDEX 0.3 INDEX (<0.8)
[2020-02-05 18:47] LABS: ERYTHROCYTE SEDIMENTATION RATE 30 mm/hr (0-20)
[2020-02-06 12:28] LABS: ALBUMIN 3.77 GM/DL (3.29-5.55); ALBUMIN % 62.8 % (55.8-66.1); ALPHA-1-GLOBULIN % 4.1 % (2.9-4.9); ALPHA-1-GLOBULINS 0.25 GM/DL (0.17-0.41); ALPHA-2-GLOBULINS 0.41 GM/DL (0.42-0.99); ALPHA-2-GLOBULINS % 6.8 % (7.1-11.8); BETA-1-GLOBULINS 0.23 GM/DL (0.28-0.60); BETA-1-GLOBULINS % 3.8 % (4.7-7.2); BETA-2-GLOBULINS 0.26 GM/DL (0.19-0.55); BETA-2-GLOBULINS % 4.4 % (3.2-6.5); GAMMA GLOBULIN % 18.1 % (11.1-18.8); GAMMA GLOBULINS 1.09 GM/DL (0.65-1.58)
[2020-02-06 17:07] LABS: ANTI SCLERODERMA ANTIBODIES <0.2 AI (0.0-0.9); ERYTHROPOIETIN 62.5 mIU/mL (2.6-18.5); FREE KAPPA LIGHT CHAINS SERUM 54.1 mg/L (3.3-19.4); FREE LAMBDA LIGHT CHAINS SERUM 43.8 mg/L (5.7-26.3); HAPTOGLOBIN 68 mg/dL (38-329); KAPPA/LAMBDA RATIO SERUM 1.24 (0.26-1.65)
[2020-03-03 12:02] LABS: CYTOGENETICS FISH FOR PATH SO See Pathology Report
== END ==
LOC: SKLAB8 07:20
PROVIDERS: ATTEND Internal Medicine Hematology & Oncology
DX: D46.9 Myelodysplastic syndrome, unspecified (principal); E53.8 Deficiency of other specified B group vitamins

== ENCOUNTER 2020-02-09 20:16 | Inpatient (IN) | payer OTHER ==
[~2020-02-09] VITALS: Ht 170.2 cm; Wt 72.6 kg
[~2020-02-09 20:16] MED LIST changes: -ATRO1OPD SL; -FERR1TAB8 PO; -FOLI1TAB11 PO; -HYDR-3715 PO; -HYOS125TA PO; -SCOP1PAT2 TOP; -ZOFR4TAB16 PO
[2020-02-09] MEDS ORDERED: ACETAMINOPHEN 650 MG SUPP PR ONE (20:45)
[2020-02-09 20:53] LABS: BASO % 0.2 % (0.0-1.0); EOS % 0.4 % (0.0-3.0); HEMATOCRIT 23.4 % (42.0-52.0); HEMOGLOBIN 7.7 g/dl (13.5-17.5); LYMPH # 0.1 10^3/uL (1.5-5.0); LYMPH % 2.3 % (24.0-44.0); MEAN CORPUSCULAR HEMOGLOBIN 34.4 pg (27.0-33.0); MEAN CORPUSCULAR HGB CONC 32.9 g/dl (32.0-36.5); MEAN CORPUSCULAR VOLUME 104.5 fl (80.0-96.0); MONO # 0.4 10^3/uL (0.0-0.8); MONO % 7.3 % (0.0-5.0); NEUTROPHILS # 4.3 10^3/uL (1.5-8.5); NEUTROPHILS % 89.4 % (36.0-66.0); RED BLOOD COUNT 2.24 10^6/uL (4.30-6.10); WHITE BLOOD COUNT 4.8 10^3/uL (4.0-10.0)
[2020-02-09 20:56] LABS: PLATELET COUNT, AUTOMATED 72 10^3/uL (150-450)
--- NOTE | 2020-02-09 20:57 | REPVR ---
PROCEDURE INFORMATION: Exam: XR Chest, 1 View Exam date and time: 02/09/2020 8:45 PM Age: 84 years old Clinical indication: Fever; Additional info: Sepsis/shock TECHNIQUE: Imaging protocol: XR of the chest Views: 1 view. COMPARISON: CR PORTABLE CHEST X-RAY 01/22/2020 10:14 AM FINDINGS: Lungs: There are no interval infiltrates. Pleural space: Unremarkable. No pleural effusion. No pneumothorax. Heart/Mediastinum: Unremarkable. No cardiomegaly. Diaphragm: Mild elevation of the right hemidiaphragm which is unchanged. Bones/joints: Unremarkable. IMPRESSION: Stable essentially negative chest since 01/22/2020. Electronically signed by: Bucky Amaya On 02/09/2020 20:57:21 PM
[2020-02-09 21:03] LABS: INR 1.29; PARTIAL THROMBOPLASTIN TIME 32.4 SECONDS (25.0-38.4); PROTHROMBIN TIME 16.4 SECONDS (11.8-14.0)
[2020-02-09 21:18] LABS: ALBUMIN 3.2 GM/DL (3.2-5.2); ALT/SGPT 195 U/L (12-78); AMYLASE 76 U/L (25-115); BILIRUBIN,DIRECT 3.2 MG/DL (0.0-0.2); BILIRUBIN,TOTAL 3.9 MG/DL (0.2-1.0); BLOOD UREA NITROGEN 33 MG/DL (7-18); CALCIUM LEVEL 8.5 MG/DL (8.8-10.2); CARBON DIOXIDE LEVEL 26 MEQ/L (21-32); CHLORIDE LEVEL 112 MEQ/L (98-107); CK-MB VALUE MASS 1.4 NG/ML (<3.6); CPK CREATINE PHOSPHOKINASE 75 U/L (39-308); CREATININE FOR GFR 1.73 MG/DL (0.70-1.30); GLOMERULAR FILTRATION RATE 40.4 (>35); GLUCOSE, FASTING 126 MG/DL (70-100); MB/CK RELATIVE INDEX 1.87 (< OR =4); POTASSIUM SERUM 4.2 MEQ/L (3.5-5.1); SODIUM LEVEL 142 MEQ/L (136-145); TOTAL PROTEIN 6.2 GM/DL (6.4-8.2); TROPONIN I < 0.02 NG/ML (< 0.10)
[2020-02-09] MEDS ORDERED: MORPHINE 2 MG/ML 1ML VIAL (J2270) IV ONE (21:45)
[2020-02-09] MEDS ORDERED: NS 500 ML IV ONE (21:45)
[2020-02-09] MEDS ORDERED: NS 1,000 ML IV ONE (22:15)
--- NOTE | 2020-02-09 22:29 | REPVR ---
PROCEDURE INFORMATION: Exam: US Abdomen, Limited; Right Upper Quadrant Exam date and time: 02/09/2020 10:16 PM Age: 84 years old Clinical indication: Abdominal pain; Acute; Additional info: Ruq pain; Elevated liver enzymes TECHNIQUE: Imaging protocol: US abdomen. Real time ultrasound with image documentation. Limited exam focused on the right upper quadrant. COMPARISON: GALLBLADDER US 01/22/2020 1:34 PM FINDINGS: Liver: The liver parenchyma is echogenic and attenuating. Gallbladder: The gallbladder demonstrates borderline wall thickening measuring 3 mm with slight pericholecystic fluid and internal stones and sludge. Common bile duct: The CBD measures 7-8 mm which is borderline distended for age. Pancreas: Visualized pancreas is unremarkable. Right kidney: The right kidney is atrophic measuring 6.1 cm with renal sinus lipomatosis. Large simple cyst in the upper pole of the right kidney measuring 10.3 x 10.0 x 10.0 cm. IMPRESSION: 1. Borderline gallbladder wall thickening measuring 3 mm with slight pericholecystic fluid and internal stones and sludge. 2. Large simple cyst in the upper pole of the right kidney which is mild atrophic. No follow-up imaging is recommended. 3. Fatty infiltration of the liver. 4. Borderline distention of the CBD for age measuring 7-8 mm. COMMENTS: Consistent with the [place] [employer]'s Incidental Findings Committee white paper (J Am Gisel Radiol 2018): Any incidental renal lesion less than 1.0 cm or classified as too small to characterize, or any incidental cystic renal lesion characterized as simple-appearing, is likely benign. No follow-up imaging is recommended for these lesions per consensus recommendations based on imaging criteria. Electronically signed by: Bucky Amaya On 02/09/2020 22:29:33 PM
[2020-02-09 22:52] LABS: APPEARANCE, URINE HAZY (CLEAR); BACTERIA, URINE AUTO NEGATIVE (NEGATIVE); BILIRUBIN, URINE AUTO 1+ (NEGATIVE); BLOOD, URINE BLOOD 3+ (NEGATIVE); COLOR, URINE AMBER (YELLOW); GLUCOSE, URINE (UA) AUTO NEGATIVE (NEGATIVE); KETONE, URINE AUTO NEGATIVE (NEGATIVE); LEUKOCYTE ESTERASE, URINE AUTO TRACE (NEGATIVE); MUCUS, URINE SMALL (NEGATIVE); NITRITE, URINE AUTO NEGATIVE (NEGATIVE); PROTEIN, URINE AUTO NEGATIVE (NEGATIVE); RBC, URINE AUTO 87 /HPF (0-3); SPECIFIC GRAVITY URINE AUTO 1.015 (1.002-1.035); SQUAMOUS EPITHELIAL CELL UR AU 0 /HPF (0-6); WBC, URINE AUTO 54 /HPF (0-3)
[2020-02-09] MEDS ORDERED: NS 1,000 ML IV SCH (23:07)
[2020-02-09] MEDS ORDERED: HEPARIN SOD (PORCINE) 5000UNITS/ML 1ML VIAL/SYRINGE SC SCH (23:15)
[2020-02-09] MEDS ORDERED: PIPERACILLIN/TAZOBACTAM SOD 3.375 GM in D5W MINI-BAG PLUS 50 ML IV ONE (23:15)
--- NOTE | 2020-02-09 23:16 | HPEPDOC ---
[facility] Medical History & Physical Date of Admission Feb 09, 2020 Date of Service: Feb 09, 2020 Attending Physician: BARTOLO SHANKS MD History and Physical TIME OF SERVICE: 1130pm CHIEF COMPLAINT: dark colored urine HISTORY OF PRESENT ILLNESS: The history was obtained from [facility] [place] and the patients sister Sandra Russell (who was at the bedside); the patient has dementia and couldnt contribute to the history. This 84 yr old M was last admitted from Jan 21 to for management of metabolic encephalopathy, transaminitis that was likely 2/2 biliary tree pathology and sepsis. He completed a course of abx and didnt undergo any invasive procedures prior to being transferred back to his NH. Today he was sent from [facility] for evaluation of dark urine and a fevers that didnt improve w acetaminophen. After arrival in the ER he was noted to be agitated but this improved after he received morphine. At the time of my visit he was asleep. REVIEW OF SYSTEMS: 12 point review of systems negative except as listed in HPI PAST MEDICAL/ SURGICAL HISTORY: Unspecified type of dementia Gout with tophi affecting multiple joints Pancytopenia - likely 2/2 myelodysplastic syndrome // Vitamin B 12 deficiency Sarcopenia Chronic CKD 3 Chronic anemia Paroxysmal atrial fibrillation Aortic valve sclerosis Moderate mitral valve calcification Chronic diastolic CHF / Chronic HTN Resection of unspecified type of skin cancer Hx of asymptomatic bradycardia Hx of BPH with urinary retention status post transurethral electro-vaporization of the prostate SOCIAL HISTORY: - Tobacco +18 sisters and 2 or 3 brothers + was in the [employer] at [facility] / used to live alone until October 2019 FAMILY HISTORY: 1 of his brothers suddenly at a young age ALLERGIES: Please see below. HOME MEDICATIONS: Please see below. PHYSICAL EXAMINATION: VITAL SIGNS: Please see below. GENERAL APPEARANCE: slim build / NAD HEENT: temporal wasting / MMM&P CARDIOVASCULAR: RRR/NMRG LUNGS: CTAB on RA ABDOMEN: flat / soft INTEGUMENT: + generalized pallor NEUROLOGICAL: unable to assess PSYCHIATRIC: unable to assess LABORATORY DATA: IMAGING: Chest xray IMPRESSION: Stable essentially negative chest since 01/22/2020. US gallbladder IMPRESSION: 1. Borderline gallbladder wall thickening measuring 3 mm with slight pericholecystic fluid and internal stones and sludge. 2. Large simple cyst in the upper pole of the right kidney which is mild atrophic. No follow-up imaging is recommended. 3. Fatty infiltration of the liver. 4. Borderline distention of the CBD for age measuring 7-8 mm. MICROBIOLOGY: blood & urine cx pending ASSESSMENT: is a n 84 yr old w a hx of dementia, sarcopenia, CKD3, pancytopenia and multiple other medical problems who was sent from [facility] for evaluation of dark urine and fever and was found to have sepsis 2/2 UTI vs hepatobiliary tree pathology & BECK; after providing her with the options to consult IR for per cutaneous biliary drain vs continue with abx alone vs transition to MANAGER FIELD SALES his sister Sandra Russell elected for the later and to avoid unnecessary hospitalizations in the future. PLAN: 1CMO Plan: d/c non essential medications, dc vitals, dc IVF, stop blood draws, no additional imaging studies, start morphine, Ativan, acetaminophen, Zofran, scopolamine atropine and hyoscyamine per MANAGER FIELD SALES order set / will ask the day time team to consult Hospice to make arrangements for him to return back to [facility] w appropriate meds / PFS consult has been placed. DVT Px n/a Dispo: possibly back to [facility] after more than 2 midnights stay Vital Signs Vital Signs Date Time Temp Pulse Resp B/P (MAP) Pulse Ox O2 Delivery O2 Flow Rate FiO2 02/09/20 21:57 102.0 20 98 Room Air 02/09/20 20:26 105 123/60 Laboratory Data Labs 24H Laboratory Tests 2 02/09/20 20:39: Urine Color CHANDNI, Urine Appearance HAZY, Urine pH 5.0, Urine Specific Carroll 1.015, Urine Protein NEGATIVE, Urine Glucose (Auto)(UA) NEGATIVE, Urine Ketones (Auto) NEGATIVE, Urine Blood 3+H, Urine Nitrite NEGATIVE, Urine Bilirubin 1+H, Urine Urobilinogen 4.0H, Urine Leukocyte Esterase (Auto) TRACEH, Urine WBC (Auto) 54H, Urine RBC (Auto) 87H, Urine Hyaline Casts (Auto) 1, Urine Bacteria (Auto) NEGATIVE, Urine Squamous Epithelial Cells 0, Urine Mucus (Auto) SMALL, Urine Sperm (Auto) 02/09/20 20:43: Immature Granulocyte % (Auto) 0.4, Neutrophils (%) (Auto) 89.4H, Lymphocytes (%) (Auto) 2.3L, Monocytes (%) (Auto) 7.3H, Eosinophils (%) (Auto) 0.4, Basophils (%) (Auto) 0.2, Neutrophils # (Auto) 4.3, Lymphocytes # (Auto) 0.1L, Monocytes # (Auto) 0.4, Eosinophils # (Auto) 0.0, Basophils # (Auto) 0.0, Nucleated Red Blood Cells % (auto) 0.4H, Immature Platelet Fraction 10.1, Prothrombin Time 16.4H, Prothromb Time International Ratio 1.29, Activated Partial Thromboplast Time 32.4, Anion Gap 4L, Glomerular Filtration Rate 40.4, Lactic Acid Level 2.8*H, Calcium Level 8.5L, Total Bilirubin 3.9H, Direct Bilirubin 3.2H, Aspartate Amino Transf (AST/SGOT) 208H, Alanine Aminotransferase (ALT/SGPT) 195H, Alkaline Phosphatase 375H, Total Creatine Kinase 75, Creatine Kinase MB 1.4, Creatine Kinase MB Relative Index 1.87, Troponin I < 0.02, C-Reactive Protein, Quantitative 0.70H, Total Protein 6.2L, Albumin 3.2, Albumin/Globulin Ratio 1.1, Amylase Level 76 CBC/BMP Laboratory Tests 02/09/20 20:43 Microbiology Microbiology 02/09/20 Blood Culture, Received Pending 02/09/20 Blood Culture, Received Pending 02/09/20 Urine Culture, Received Pending Home Medications Scheduled Aspirin (Aspirin EC) 81 Mg Tablet.dr, 81 MG PO DAILY Cyanocobalamin (Vitamin B-12) (Vitamin B-12) 1,000 Mcg Tablet, 1,000 MCG PO DAILY Docusate Sodium (Stool Softener) 100 Mg Capsule, 100 MG PO BID Ferrous Sulfate (Ferrous Sulfate) 325 Mg Tablet, 325 MG PO DAILY Folic Acid (Folic Acid) 1 Mg Tablet, 1 MG PO DAILY Lidocaine (Anecream) 4% Cream..g., 1 APLCT TOP BID APPLY TO RIGHT HIP Lidocaine (Anecream) 4% Cream..g., 1 APLCT TOP BID APPLY TO KNEES Lorazepam (Ativan) 0.5 Mg Tablet, 0.25 MG PO BID Melatonin (Melatonin) 5 Mg Tablet, 5 MG PO QHS Quetiapine Fumarate (Quetiapine Fumarate) 25 Mg Tablet, 25 MG PO BID Terazosin Hcl (Terazosin HCl) 10 Mg Capsule, 10 MG PO QHS Scheduled PRN Acetaminophen (Mapap) 325 Mg Tablet, 650 MG PO Q4H PRN for PAIN Acetaminophen (Acetaminophen) 650 Mg Supp.rect, 650 MG DE Q4H PRN for DISCOMFORT Bisacodyl (Bisacodyl) 10 Mg Supp.rect, 10 MG DE DAILY PRN for CONSTIPATION Lactulose (Lactulose) 10 Gm/15 Ml Solution, 15 ML PO DAILY PRN for CONSTIPATION Magnesium Hydroxide (Milk of Magnesia) 400 Mg/5 Ml Oral.susp, 10 ML PO DAILY PRN for CONSTIPATION Sodium Phosphate,Winn-Dibasic (Fleet Enema) 133 Ml Enema, 1 SWEETIE DE DAILY PRN for CONSTIPATION Allergies Coded Allergies: No Known Allergies (Unverified , 08/01/13) A-FIB/CHADSVASC A-FIB History Current/History of A-Fib/PAF?: No Current PO Anticoag Therapy: No BARTOLO SHANKS MD Feb 09, 2020 23:16
[2020-02-09] MEDS ORDERED: SCOPOLAMINE 1MG TRANSDERMAL PATCH TOP PRN (23:45)
[2020-02-09] MEDS ORDERED: BISACODYL 10 MG SUPP PR PRN (23:45)
[2020-02-09] MEDS ORDERED: ACETAMINOPHEN 650 MG SUPP PR PRN (23:45)
[2020-02-09] MEDS ORDERED: LORazepam 2 MG/ML VIAL IV PRN (23:45)
[2020-02-09] MEDS ORDERED: ONDANSETRON 4MG/2ML VIAL IV PRN (23:45)
[2020-02-09] MEDS ORDERED: HYOSCYAMINE SULFATE 0.125 MG SUBL TABLET PO PRN (23:45)
[2020-02-09] MEDS ORDERED: ATROPINE SULFATE 1% OP SOLN 2 ML BTL SL PRN (23:45)
[2020-02-09] MEDS ORDERED: QUET1TAB7 PO (23:48)
[2020-02-09] MEDS ORDERED: FOLI1TAB11 PO (23:48)
[2020-02-09] MEDS ORDERED: ANEC4CRE3 TOP (23:48)
[2020-02-09] MEDS ORDERED: FERR1TAB8 PO (23:48)
[2020-02-10] VITALS: BP 102/51
[2020-02-10] MEDS: MORPHINE 2 MG/ML 1ML VIAL (J2270) IV PRN ×2 (01:52→05:12)
[2020-02-10] MEDS ORDERED: PIPERACILLIN/TAZOBACTAM SOD 3.375 GM in D5W MINI-BAG PLUS 50 ML IV SCH (05:00)
--- NOTE | 2020-02-10 14:19 | IPNPDOC ---
Text Note Date of Service The patient was seen on 02/10/20. NOTE S Patient sleeping comfortably in room and refused medical interview and exam ination this morning. Per Dr. Silva's note on 02/09/2020: " is an 84 yr old M with history of dementia, sarcopenia, chronic kidney disease stage III, pancytopenia (suspected 2/2 myelodysplastic syndrome) and several other medical problems who was sent from [facility] for evaluation of dark urine and fever and was found to have sepsis 2/2 urinary tract infection vs hepatobiliary tree pathology & acute kidney injury; after providing her with the options to consult intervention radiology for per cutaneous biliary drain vs continue with antibiotics alone vs transition to AVIATION WARFARE SYSTEMS OPERATOR his sister Sandra Russell elected for the later and to avoid unnecessary hospitalizations in the future." Unable to obtain ROS, patient refused interview. O Patient refused physical examination. GENERAL: 84 y/o M with slim build, sleeping comfortably on bed, with no acute distress. Responded to verbal stimuli and oriented to person. IMAGING: Chest xray IMPRESSION: Stable essentially negative chest since 01/22/2020. US gallbladder IMPRESSION: 1. Borderline gallbladder wall thickening measuring 3 mm with slight pericholecystic fluid and internal stones and sludge. 2. Large simple cyst in the upper pole of the right kidney which is mild atrophic. No follow-up imaging is recommended. 3. Fatty infiltration of the liver. 4. Borderline distention of the CBD for age measuring 7-8 mm. MICROBIOLOGY: blood & urine cx pending A Per Dr. Silva's note on 02/09/2020: " is an 84 yr old M with history of dementia, sarcopenia, chronic kidney disease stage III, pancytopenia (suspe cted 2/2 myelodysplastic syndrome) and several other medical problems who was sent from [facility] for evaluation of dark urine and fever and was found to have sepsis 2/2 urinary tract infection vs hepatobiliary tree pathology & acute kidney injury; after providing her with the options to consult intervention radiology for per cutaneous biliary drain vs continue with antibiotics alone vs transition to AVIATION WARFARE SYSTEMS OPERATOR his sister Sandra Russell elected for the later and to avoid unnecessary hospitalizations in the future." P # 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 WARFARE SYSTEMS OPERATOR 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 - Consult hospice for arrangements to go back to [facility] with appropriate meds - Pureed diet as tolerated - Aspiration precaution # Anemia and thrombocytopenia - Patient with hx of blood transfusion - thought to be 2/2 myelodysplastic syndrome - Patient is 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 All aspects of the patient interview, examination, medical decision making process, and medical care plan development were reviewed and approved by the faculty preceptor. The faculty preceptor is aware and concurs with the plan as stated in the body of this note and will attest to such by his/her cosignature. ATTENDING NOTE Patient was seen and examined by me personally with the residents and I agree with the above assessment and plan EVERETTE WINTER OMS-3 Feb 10, 2020 14:18 SHAJI HOOVER MD Feb 17, 2020 14:15
[2020-02-10] MEDS ORDERED: LORazepam 1 MG TAB PO PRN (18:45)
[2020-02-10] MEDS ORDERED: NORCO, ANEXSIA 5/325MG TABLET (HYDROcodone/ACETAMINOPHEN) PO PRN (18:45)
[2020-02-11] MEDS ORDERED: ZOFR4TAB16 PO (12:13)
[2020-02-11] MEDS ORDERED: ATRO1OPD SL (12:13)
[2020-02-11] MEDS ORDERED: HYDR-3715 PO (12:13)
[2020-02-11] MEDS ORDERED: SCOP1PAT2 TOP (12:13)
[2020-02-11] MEDS ORDERED: HYOS125TA PO (12:13)
--- NOTE | 2020-02-11 14:17 | DS.PDOC ---
Discharge Summary General Date of Admission Feb 09, 2020 at 23:07 Date of Discharge 02/11/2020 Attending Physician: SHAJI HOOVER MD Discharge Summary PROCEDURES PERFORMED DURING STAY: [None]. ADMITTING/ DISCHARGE DIAGNOSES: 1. 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 Anemia and thrombocytopenia COMPLICATIONS/CHIEF COMPLAINT: Thanh,Sirs,Transaminitis,Uti. HISTORY OF PRESENT ILLNESS/ HOSPITAL COURSE: Mr. 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 He was found to have sepsis 2/2 urinary tract infection vs hepatobiliary tree pathology & acute kidney injury. Patient has moderate to severe dementia at baseline, his sister, Ms. Sandra Russell, was contacted regarding to medical decisions. After providing her with the options to consult intervention radiology for per cutaneous biliary drain vs continue with antibiotics alone vs transition to ELECTROMEDICAL EQUIPMENT REPAIRER, she elected for the later and to avoid unnecessary hospitalizations in the future. Patient was transitioned to ELECTROMEDICAL EQUIPMENT REPAIRER status soon after admission. ELECTROMEDICAL EQUIPMENT REPAIRER order set was implemented and his mental status remained at baseline during the hospital course, alert and oriented to person only. A discussion was held regarding to patient's disposition and her wishes were to have patient sent back to [facility] with hospice care. He was subsequently discharged back to [facility] as ELECTROMEDICAL EQUIPMENT REPAIRER. At the day of discharge, patient was able to hold a conversation despite disorientation to time and place. He is not in pain and denied N/V/D. He had a good sleep last night and had good appetite. He denied any bowel or bladder issues. DISCHARGE MEDICATIONS: Please see below. ALLERGIES: Please see below. PHYSICAL EXAMINATION ON DISCHARGE: VITAL SIGNS: Please see below. GENERAL APPEARANCE: 84 y/o M patient, slim build, resting comfortably on bed with no acute distress. Alert & oriented to person only. HEENT Exam: Normocephalic and atraumatic, EOMI, without sclera icteric, mucous membr. moist/pink, fully edentulous. NECK: Supple without lymphadenopathy. LUNGS: Clear to auscultation bilaterally without rales, wheezing, and crackles. CARDIOVASCULAR: Regular rate and rhythm, normal S1 & S2. ABDOMEN: Soft, non-tender, non-distended with normal bowel sounds. EXTREMITIES: 2+ DP and radial pulses bilaterally. Heberden's nodes and rizwana's nodes noted on DIP and PIP respectively. SKIN: Normal turgor and temperature. MUSCULOSKELETAL: Strength +5/5 in all extremities without tenderness. NEUROLOGICAL: Patient moving all 4 extremities and follows commands. LABORATORY DATA: Please see below. IMAGIN02/09/2020 Chest xray IMPRESSION: Stable essentially negative chest since 01/22/2020. 02/09/2020 US gallbladder IMPRESSION: 1. Borderline gallbladder wall thickening measuring 3 mm with slight pericholecystic fluid and internal stones and sludge. 2. Large simple cyst in the upper pole of the right kidney which is mild atrophic. No follow-up imaging is recommended. 3. Fatty infiltration of the liver. 4. Borderline distention of the CBD for age measuring 7-8 mm. MICROBIOLOGY: BCx (x2) collected on 02/09/2020 results: GRAM POSITIVE COCCI IN PAIRS AND CLUSTERS in both samples(detected 02/10/2020 & 02/11/2020). UCx collected on 02/09/2020 result: No growth. PROGNOSIS: Poor ACTIVITY: As tolerated DIET: Pureed, regular diet. DISCHARGE PLAN/ DISPOSITION: Discharge to [facility] as ELECTROMEDICAL EQUIPMENT REPAIRER DISCHARGE INSTRUCTIONS: 1. Continue home medications as needed. ITEMS TO FOLLOWUP ON ON OUTPATIENT: 1. None DISCHARGE CONDITION: Stable. TIME SPENT ON DISCHARGE: Greater than 36 minutes. Vital Signs/I&Os Vital Signs Date Time Temp Pulse Resp B/P (MAP) Pulse Ox O2 Delivery O2 Flow Rate FiO2 02/10/20 23:53 18 02/10/20 05:22 Room Air 02/10/20 00:00 103 102/51 (68) 94 02/09/20 22:30 100.0 Microbiology Microbiology 02/09/20 Blood Culture - Preliminary, Resulted 02/09/20 Blood Culture - Preliminary, Resulted 02/09/20 Urine Culture - Final, Complete Discharge Medications Scheduled Docusate Sodium (Stool Softener) 100 Mg Capsule, 100 MG PO BID, (Reported) Lidocaine (Anecream) 4% Cream..g., 1 APLCT TOP BID, (Reported) APPLY TO RIGHT HIP Lidocaine (Anecream) 4% Cream..g., 1 APLCT TOP BID, (Reported) APPLY TO KNEES Lorazepam (Ativan) 0.5 Mg Tablet, 0.25 MG PO BID, (Reported) Scheduled PRN Acetaminophen (Mapap) 325 Mg Tablet, 650 MG PO Q4H PRN for PAIN, (Reported) Acetaminophen (Acetaminophen) 650 Mg Supp.rect, 650 MG NJ Q4H PRN for DISCOMFORT, (Reported) Atropine Sulfate (Atropine Sulfate) 1% 2ML Drops, 1 DROP SL Q2HP PRN for TERMINAL SECRETIONS Bisacodyl (Bisacodyl) 10 Mg Supp.rect, 10 MG NJ DAILY PRN for CONSTIPATION, (Reported) Hyoscyamine Sulfate (Hyoscyamine Sulfate) 0.125 Mg Tab.subl, 0.125 MG PO Q4HP PRN for TERMINAL SECRETIONS Ondansetron HCl (Zofran) 4 Mg Tablet, 1 TAB PO Q6-8HP PRN for nausea/vomiting Scopolamine (Transderm-Scop) 1 Each Patch.td.3, 1 MG TOP Q3DP PRN for EXCESSIVE SECRETIONS Sodium Phosphate,[place]-Dibasic (Fleet Enema) 133 Ml Enema, 1 [place] DAILY PRN for CONSTIPATION, (Reported) Allergies Coded Allergies: No Known Allergies (Unverified , 08/01/13) GME ATTESTATION GME ATTESTATION My faculty preceptor for this patient encounter was physically present during the encounter and was fully available. All aspects of the patient interview, examination, medical decision making process, and medical care plan development were reviewed and approved by the faculty preceptor. The faculty preceptor is aware and concurs with the plan as stated in the body of this note and will attest to such by his/her cosignature. ATTENDING NOTE Patient was seen and examined by me personally with the residents and I agree with the above assessment and plan EVERETTE WINTER OMS-3 Feb 11, 2020 14:16 SHAJI HOOVER MD Feb 17, 2020 14:38
--- NOTE | 2020-02-16 08:08 | ECGEPIP ---
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
== END 2020-02-11 13:30 | disposition home or self-care (01) | DRG 872 ==
LOC: M ED 20:16 → M ED INP 23:07 → M MSPAV 02-10 01:42
PROVIDERS: ADMIT Internal Medicine; ATTEND Internal Medicine
DX: A41.9 Sepsis, unspecified organism (principal); N39.0 Urinary tract infection, site not specified; N17.9 Acute kidney failure, unspecified; D61.818 Other pancytopenia; I50.32 Chronic diastolic (congestive) heart failure; I13.0 Hypertensive heart and chronic kidney disease with heart failure and stage 1 through stage 4 chronic kidney disease, or unspecified chronic kidney disease; D69.6 Thrombocytopenia, unspecified; Z51.5 Encounter for palliative care; F03.90 Unspecified dementia, unspecified severity, without behavioral disturbance, psychotic disturbance, mood disturbance, and anxiety; N18.3 Chronic kidney disease, stage 3 (moderate); Z79.899 Other long term (current) drug therapy; I48.0 Paroxysmal atrial fibrillation; D64.9 Anemia, unspecified; M10.9 Gout, unspecified; I08.0 Rheumatic disorders of both mitral and aortic valves; E53.8 Deficiency of other specified B group vitamins; D46.9 Myelodysplastic syndrome, unspecified

== ENCOUNTER → 2020-02-09 | Outpatient (REF) | payer OTHER, MEDICAID ==
[2020-02-09 20:14] LABS: APPEARANCE, URINE CLEAR (CLEAR); BACTERIA, URINE AUTO NEGATIVE (NEGATIVE); BILIRUBIN, URINE AUTO NEGATIVE (NEGATIVE); BLOOD, URINE BLOOD NEGATIVE (NEGATIVE); COLOR, URINE AMBER (YELLOW); GLUCOSE, URINE (UA) AUTO NEGATIVE (NEGATIVE); KETONE, URINE AUTO NEGATIVE (NEGATIVE); LEUKOCYTE ESTERASE, URINE AUTO NEGATIVE (NEGATIVE); MUCUS, URINE SMALL (NEGATIVE); NITRITE, URINE AUTO NEGATIVE (NEGATIVE); PROTEIN, URINE AUTO NEGATIVE (NEGATIVE); RBC, URINE AUTO 2 /HPF (0-3); SPECIFIC GRAVITY URINE AUTO 1.016 (1.002-1.035); SQUAMOUS EPITHELIAL CELL UR AU 0 /HPF (0-6); WBC, URINE AUTO 2 /HPF (0-3)
== END ==
LOC: SKLAB8 19:12
PROVIDERS: ATTEND Family Medicine
DX: R50.9 Fever, unspecified (principal)

== ENCOUNTER → 2020-02-21 | Outpatient (REF) | payer OTHER ==
[~2020-02-21] MED LIST changes: +ATRO1OPD SL; +FERR1TAB8 PO; +FOLI1TAB11 PO; +HYDR-3715 PO; +HYOS125TA PO; +SCOP1PAT2 TOP; +ZOFR4TAB16 PO
== END ==
LOC: SKLAB8 07:00
PROVIDERS: ATTEND Internal Medicine
DX: E87.0 Hyperosmolality and hypernatremia (principal)